=== PATIENT | male | born 1945 | race Hispanic/Latino ===

== ENCOUNTER 2017-07-11 16:01 | Inpatient (IN) | payer MEDICARE, BC ==
[2017-07-11 16:36] VITALS: BMI 27.3
[2017-07-11 17:35] LABS: ALB/GLOB RATIO 1.1 (1.1-1.8); ALT/SGPT 132 U/L (7-56); AST/SGOT 114 U/L (17-59); BLOOD UREA NITROGEN 25 mg/dL (7-21); GFR AFRICAN-AMERICAN > 60; GFR NON-AFRICAN AMERICAN 50; MAGNESIUM 1.6 mg/dL (1.7-2.2)
[2017-07-11 17:39] LABS: GRAN % 47.3 % (50.0-68.0); HEMOGLOBIN 17.3 g/dL (14.0-18.0); MEAN CELL VOLUME 103.6 fl (80.0-105.0); MEAN CORPUSCULAR HEMOGLOBIN 36.3 pg (25.0-35.0); MEAN PLATELET VOLUME 11.1 fl (7.0-11.0); PLATELET COUNT 95 10^3/uL (120.0-450.0); RBC 4.77 10^6/uL (3.5-6.1); WHITE BLOOD COUNT 5.2 10^3/ul (4.5-11.0)
[2017-07-11 17:40] LABS: BASO # 0.01 K/mm3 (0.0-2.0); BASO % 0.2 % (0.0-3.0); EOS % 0.8 % (1.5-5.0); GRAN # 2.44 (1.4-6.5); LYMPH # 1.6 (1.2-3.4); MONO # 1.1 (0.1-0.6); MONO % 20.7 % (1.0-6.0)
[2017-07-11 17:51] LABS: CK-MB 4.7 ng/mL (0.0-3.6)
[2017-07-11 17:52] LABS: TROPONIN I < 0.01 ng/mL
[2017-07-11] MEDS ORDERED: levoFLOXacin 750 mg in D5W 150 ML BAG IVPB STA (18:09)
[2017-07-11] MEDS ORDERED: Sodium Chloride 0.9% 1,000 ML IV ONE (18:12)
--- NOTE | 2017-07-11 18:12 | CT ---
EXAM: CT Head Without Intravenous Contrast CLINICAL HISTORY: 72 years old, male; Pain; Headache; Headache not specified; Additional info: R/O ich TECHNIQUE: Axial computed tomography images of the head/brain without intravenous contrast. All CT scans at this facility use one or more dose reduction techniques, viz.: automated exposure control; ma/kV adjustment per patient size (including targeted exams where dose is matched to indication; i.e. head); or iterative reconstruction technique. Coronal and sagittal reformatted images were created and reviewed. COMPARISON: CT - HEAD W/O CONTRAST 2016-08-05 17:03 FINDINGS: Brain: Prominence of the sulci and ventricular system consistent with atrophy. Hypodensity throughout the white matter consistent with chronic small vessel disease. No intracranial mass, mass effect, or midline shift. No hemorrhage. Ventricles: No hydrocephalus. Bones/joints: Unremarkable. No acute fracture. Soft tissues: Unremarkable. Sinuses: Unremarkable as visualized. No acute sinusitis. Mastoid air cells: Unremarkable as visualized. No mastoid effusion. IMPRESSION: No acute intracranial abnormality.
--- NOTE | 2017-07-11 18:46 | ED PDOC ---
Arrival/HPI - General Chief Complaint: Trauma Time Seen by Provider: 07/11/17 16:16 Historian: Patient - History of Present Illness Narrative History of Present Illness (Text): 07/11/17 18:41 72 year old male, who has a history of HIV and is on HAART with an unknown CD4 count, presents to the Emergency department status post dizziness and near syncope. Patient also complains of coughing for the past several days. Patient reports walking to the pharmacy today to get more cough medicine when he became dizzy and nearly lost consciousness. Patient states he is compliant with all medications. Patient denies any fever, chills, chest pain, shortness of breath, nausea, vomiting, diarrhea, urinary symptoms, back pain, neck pain, recent travel, recent sick contact or any other complaints. Time/Duration: Prior to Arrival Symptom Onset: Sudden Symptom Course: Improving Activities at Onset: Light Context: Walking Past Medical History - Provider Review Nursing Documentation Reviewed: Yes - Travel History Have you recently traveled outside [place] w/in the past 3 mons?: No - Infectious Disease Hx of Infectious Diseases: None - Cardiac Hx Cardiac Disorders: No Hx Angina: No Hx Cardiac Arrhythmia: No Hx Circulatory Problems: No Hx Congestive Heart Failure: No Hx Heart Murmur: No Hx Heart Transplant: No Hx Hypertension: No Hx Internal Defibrillator: No Hx Mitral Valve Prolapse: No Hx Pacemaker: No Hx Peripheral Edema: No Hx Peripheral Vascular Disease: No - Pulmonary Hx Respiratory Disorders: No Hx Asthma: No Hx Bronchitis: No Hx Chronic Obstructive Pulmonary Disease (COPD): No Hx Emphysema: No Hx Pneumonia: No Hx Respiratory Aspiration: No Hx Respiratory Tract Infection: No Hx Sleep Apnea: No Hx Tuberculosis: No Other/Comment: Pt has history of HIV - Neurological Hx Neurological Disorder: No Hx Alzheimer's Disease: No HX Cerebrovascular Accident: No Hx Dementia: No Hx Dizziness: No Hx Meningitis: No Hx Migraine: No Hx Parkinson's Disease: No Hx Seizures: No Hx Transient Ischemic Attacks (TIA): No - HEENT Hx HEENT Disorder: No Hx Blind: No Hx Cataracts: No Hx Deafness: No Hx Difficulty Chewing: No Hx Epistaxis: No Hx Glaucoma: No Hx Macular Degeneration: No - Renal Hx Renal Disorder: No Hx Dialysis: No Hx Kidney Stones: Yes Hx Neurogenic Bladder: No Hx Pyelonephritis: No Hx Renal Cancer: No Hx Renal Failure: No (Pt had one kidney removed, 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) - Endocrine/Metabolic Hx Endocrine Disorders: No Hx Adrenal Cancer: No Hx Diabetes Insipidus: No Hx Diabetes Mellitus Type 1: No Hx Diabetes Mellitus Type 2: No Hx Hyperthyroidism: No Hx Hypothyroidism: No Hx Systemic Lupus Erythematosus: No - Hematological/Oncological Other/Comment: HIV - Integumentary Hx Dermatological Disorder: Yes Hx Basal Cell Carcinoma: No Hx Eczema: No Hx Melanoma: No Hx Psoriasis: No Hx Squamous Cell Carcinoma: No Other/Comment: shingles in the eye, - Musculoskeletal/Rheumatological Hx Musculoskeletal Disorders: No Hx Falls: No (Firsoccurence was this past Wednesday,prior to admission) - Gastrointestinal Hx Gastrointestinal Disorders: No Hx Colostomy: No Hx Crohn's Disease: No Hx Diverticulitis: No Hx Gall Bladder Disease: No Hx Gastroesophageal Reflux: No Hx Gastrointestinal Ulcer: No Hx Ileostomy: No Hx Liver Failure: No Hx Pancreatitis: No HX Swallowing Problems: No - Genitourinary/Gynecological Hx Genitourinary Disorders: No Hx Hematuria: No Hx Incontinence: No Hx Prostate Problems: No Hx Sexually Transmitted Diseases: No Hx Urinary Tract Infection: No - Psychiatric Hx Psychophysiologic Disorder: No Hx Anxiety: No Hx Bipolar Disorder: No Hx Depression: No Hx Emotional Abuse: No Hx Hallucinations: No Hx Panic Disorder: No Hx Post Traumatic Stress Disorder: No Hx Psychosis: No Hx Physical Abuse: No Hx Schizophrenia: No Hx Sexual Abuse: No Hx Substance Use: No - Surgical History Hx Amputation: No Hx Appendectomy: No Hx Cardiac Catheterization: No Hx Cholecystectomy: No Hx Coronary Stent: No Hx Gastric Bypass Surgery: No Hx Hysterectomy: No Hx Joint Replacement: No Hx Kidney Transplant: No Hx Liver Transplant: No Hx Mastectomy: No Hx Musculoskeletal Surgery: No Hx Open Heart Surgery: No Hx Orthopedic Surgery: No Hx Splenectomy: No Hx Valve Replacement: No - Anesthesia Hx Anesthesia: Yes Hx Anesthesia Reactions: No Hx Malignant Hyperthermia: No Family/Social History - Physician Review Nursing Documentation Reviewed: Yes Family/Social History: Unknown Family HX Smoking Status: Never Smoked Hx Alcohol Use: No Hx Substance Use: No Allergies/Home Meds Allergies/Adverse Reactions: Allergies Penicillins Allergy (Intermediate, Verified 07/11/17 16:29) RASH Home Medications: Home Meds Medication Instructions Recorded Confirmed Darunavir/Cobicistat [Prezcobix 1 tab PO DAILY 08/05/16 08/06/16 800 mg-150 mg Tablet] Emtricitabine [Emtriva] 200 mg PO DAILY 08/05/16 08/06/16 Home Med 500 mg PO DAILY 08/06/16 08/06/16 Nevirapine [Viramune] 400 mg PO DAILY 08/06/16 08/06/16 Valsartan/Hydrochlorothiazide 1 tab PO DAILY 08/06/16 08/07/16 [Diovan Hct 320-25 mg Tablet] Review of Systems - Physician Review All systems were reviewed & negative as marked: Yes - Review of Systems Constitutional: absent: Fevers, Night Sweats Respiratory: absent: SOB Cardiovascular: absent: Chest Pain Gastrointestinal: absent: Diarrhea, Nausea, Vomiting Genitourinary Male: absent: Dysuria Musculoskeletal: absent: Back Pain, Neck Pain Neurological: Dizziness, Other (near syncope) Physical Exam Vital Signs Reviewed: Yes Vital Signs Temp Pulse Resp BP Pulse Ox 07/11/17 18:23 101.8 F H 07/11/17 16:50 101.8 F H 94 H 18 145/42 L 100 Temperature: Febrile Blood Pressure: Hypotensive Pulse: Regular Respiratory Rate: Normal Appearance: Positive for: Well-Appearing, Non-Toxic, Comfortable Pain Distress: None Mental Status: Positive for: Alert and Oriented X 3 - Systems Exam Head: Present: Atraumatic, Normocephalic Pupils: Present: PERRL Extroacular Muscles: Present: EOMI Conjunctiva: Present: Normal Mouth: Present: Dry. No: Moist Mucous Membranes Neck: Present: Normal Range of Motion Respiratory/Chest: Present: Clear to Auscultation, Good Air Exchange. No: Respiratory Distress, Accessory Muscle Use Cardiovascular: Present: Regular Rate and Rhythm, Normal S1, S2. No: Murmurs Abdomen: Present: Normal Bowel Sounds. No: Tenderness, Distention, Peritoneal Signs Back: Present: Normal Inspection Upper Extremity: Present: Normal Inspection. No: Cyanosis, Edema Lower Extremity: Present: Normal Inspection. No: Edema Neurological: Present: GCS=15, CN II-XII Intact, Speech Normal Skin: Present: Warm, Dry, Normal Color. No: Rashes Psychiatric: Present: Alert, Oriented x 3, Normal Insight, Normal Concentration Medical Decision Making ED Course and Treatment: 07/11/17 18:40 Impression: 72 year old male presents to the Emergency department status post dizziness and near syncope. Plan: -- Chest xray -- EKG -- Urinalysis -- Urine drug screen -- Urine and blood culture -- Tylenol, Levofloxacin, Sodium Chloride IV fluids -- Reassess and disposition Prior Visits: Notes and results from previous visits were reviewed. Patient was last seen in the emergency department on 08/05/16 for syncope and was hospitalized. Progress Notes: - Lab Interpretations Lab Results: 07/11/17 16:40 07/11/17 16:40 Lab Results 07/11/17 16:40: Sodium 136, Potassium 4.6, Chloride 100, Carbon Dioxide 27, Anion Gap 14, BUN 25 H, Creatinine 1.4, Est GFR ( Amer) > 60, Est GFR ( Non-Af Amer) 50, Random Glucose 104, Calcium 9.0, Magnesium 1.6 L, Total Bilirubin 0.6, AST 114 H, ALT 132 H, Alkaline Phosphatase 58, Lactate Dehydrogenase 614, Total Creatine Kinase 299 H, CK-MB (CK-2) 4.7 H, CK-MB (CK-2 ) % Cancelled, Troponin I < 0.01, Total Protein 7.6, Albumin 4.0, Globulin 3.7, Albumin/Globulin Ratio 1.1 07/11/17 16:40: Influenza Typ A,B (EIA) Negative for flu a/b 07/11/17 16:40: WBC 5.2, RBC 4.77, Hgb 17.3, Hct 49.4, MCV 103.6, MCH 36.3 H, MCHC 35.0, RDW 13.0, Plt Count 95 L, MPV 11.1 H, Gran % 47.3 L, Lymph % (Auto) 31.0, [place] % (Auto) 20.7 H, Eos % (Auto) 0.8 L, Baso % (Auto) 0.2, Gran # 2.44, Lymph # 1.6, [place] # 1.1 H, Eos # 0.0, Baso # 0.01, Neutrophils % (Manual) Pending, Lymphocytes % (Manual) Pending, Monocytes % (Manual) Pending - RAD Interpretation Radiology Orders: 07/11/17 16:28 HEAD W/O CONTRAST [CT] Stat CHEST PORTABLE [RAD] Stat - EKG Interpretation EKG Interpretation (Text): 01/14/18 16:56 EKG: Ordered, reviewed, and independently interpreted the EKG. Rate : 92 BPM Rhythm : NSR Interpretation : Normal axis and rhythm. Interpreted by ED Physician: Yes Type: 12 lead EKG - Medication Orders Current Medication Orders: Sodium Chloride (Sodium Chloride 0.9%) 1,000 mls @ 250 mls/hr IV .Q4H ONE Stop: 07/11/17 22:11 Last Admin: 07/11/17 18:24 Dose: 250 mls/hr eMAR Start Stop Document 07/11/17 18:24 SE (Rec: 07/11/17 18:24 SE [id number]) Intravenous Solution Start Date 07/11/17 Start Time 18:24 Discontinued Medications Acetaminophen (Tylenol 325mg Tab) 975 mg PO STAT STA Stop: 07/11/17 18:10 Last Admin: 07/11/17 18:23 Dose: 975 mg MAR Pain/Vitals Document 07/11/17 18:23 SE (Rec: 07/11/17 18:24 [id number]) Pain Reassessment Is This A Pain ReAssessment? No Sleep Is patient sleeping during reassessment? No Presence of Pain Presence of Pain No Vitals Temperature (97.6 F-99.6 F) 101.8 F Temperature Source Rectal Levofloxacin/Dextrose (Levaquin 750mg) 750 mg IVPB STAT STA Stop: 07/11/17 18:10 Last Admin: 07/11/17 18:24 Dose: 750 mg eMAR Start Stop Document 07/11/17 18:24 SE (Rec: 07/11/17 18:24 SE [id number]) Intravenous Solution Start Date 07/11/17 Start Time 18:24 - Scribe Statement The provider has reviewed the documentation as recorded by the Scribjuan Brady All medical record entries made by the Dianeibjuan were at my direction and personally dictated by me. I have reviewed the chart and agree that the record accurately reflects my personal performance of the history, physical exam, medical decision making, and the department course for this patient. I have also personally directed, reviewed, and agree with the discharge instructions and disposition. Disposition/Present on Arrival - Present on Arrival Any Indicators Present on Arrival: No History of DVT/PE: No History of Uncontrolled Diabetes: No Urinary Catheter: No History of Decub. Ulcer: No History Surgical Site Infection Following: None - Disposition Have Diagnosis and Disposition been Completed?: Yes Diagnosis: Near syncope, HIV (human immunodeficiency virus infection), Pneumonia Disposition: HOSPITALIZED Disposition Time: 18:30 Condition: FAIR
[2017-07-11 19:55] LABS: BAND 10 % (0-2); BASOPHIL 1 % (0.0-1.0); LYMPHOCYTE 25 % (22.0-35.0); MONOCYTE 17 % (1.0-6.0); NEUTROPHIL 47 % (50.0-70.0); PLATELET CLUMPS PRESENT; PLATELET ESTIMATE NORMAL (NORMAL)
[2017-07-11 23:09] LABS: URINE BILIRUBIN NEGATIVE (NEGATIVE); URINE BLOOD TRACE-INTACT (NEGATIVE); URINE GLUCOSE (UA) NEGATIVE (NEGATIVE); URINE LEUKOCYTE ESTERASE NEGATIVE Leu/uL (NEGATIVE); URINE NITRATE NEGATIVE (NEGATIVE); URINE PROTEIN 30 mg/dL (<30 mg/dL); URINE UROBILINOGEN 0.2 E.U./dL (<1 E.U./dL)
[2017-07-11 23:24] LABS: BARBITURATES, UR NEGATIVE (NEGATIVE); BENZODIAZEPINES, UR NEGATIVE (NEGATIVE); OPIATES, UR NEGATIVE (NEGATIVE); PHENCYCLIDINE, UR NEGATIVE (NEGATIVE)
[2017-07-11 23:42] LABS: URINE APPEARANCE CLEAR (CLEAR); URINE COLOR YELLOW (YELLOW)
[2017-07-11 23:45] LABS: URINE EPITHELIAL CELLS 0 - 2 /hpf (0-5); URINE RBC 0 - 2 /hpf (0-2); URINE WBC 0 - 2 /hpf (0-6)
[2017-07-12 06:25] VITALS: O2SAT 96
[2017-07-12] MEDS: Sodium Chloride 0.45% 1,000 ML IV SCH (06:38)
[2017-07-12] MEDS ORDERED: Albuterol-Ipratrop 3 mg / 0.5 (3 ml) UD IH PRN (07:27)
--- NOTE | 2017-07-12 07:45 | CP.PCM.HP ---
History of Present Illness - History of Present Illness History of Present Illness: PGY2 for Dr. Sultana Neurology Consult: Near syncope MR. Jones, 72 M, with PMHx of HIV, (on HAART, unknown CD4), and HTN presents to the Emergency department status post dizziness and near syncope. Patient also complains of coughing for the past several days. Patient reports walking to the pharmacy today to get more cough medicine when he became dizzy and nearly lost consciousness. Patient states he is compliant with all medications. ROS - Denies any fever, chills, chest pain, shortness of breath, nausea, vomiting, diarrhea, urinary symptoms, back pain, neck pain, recent travel, recent sick contact or any other complaints. PMH HIV, HTN Macrocytic RBC PSH Cardiac catherterization FH SH Denies tobaco, etoh, drug All Penicillin-rash Med PMD MR. Jones, 72 M, with PMHx of HIV, (on HAART, unknown CD4), and HTN presents to the Emergency department status post dizziness and near syncope. Patient also complains of coughing for the past several days. 1. Syncope - CT of head shows no mass, mass effect, midline shift, hemorrhage, hydrocephalus. (+) generalized atrophy. Hypodensity throught white matter consist with chronic small vessel disease - EKG showed NSR @ 92. Normal axis, rhythm - will check orthostatic vital signs - f/u on a1c and lipid panel - Consider MRI 2. Respiratory infection with 10% bandemia - On duoneb, pulmicort - solumedrol 30 q12 - Levaquin IV 3. HIV - check CD4 count and viral load - On Darunavir/Cobicistate/Emtricitabine 4. transaminitis (AST 114, ALT 132) 5. HTN - stable Past Patient History - Infectious Disease Hx of Infectious Diseases: None - Past Social History Smoking Status: Never Smoked - CARDIAC Hx Cardiac Disorders: No Hx Angina: No Hx Cardia Arrhythmia: No Hx Circulatory Problems: No Hx Congestive Heart Failure: No Hx Heart Murmur: No Hx Heart Transplant: No Hx Hypertension: No Hx Internal Defibrillator: No Hx Mitral Valve Prolapse: No Hx Pacemaker: No Hx Peripheral Edema: No Hx Peripheral Vascular Disease: No - PULMONARY Hx Respiratory Disorders: No Hx Asthma: No Hx Bronchitis: No Hx Chronic Obstructive Pulmonary Disease (COPD): No Hx Emphysema: No Hx Pneumonia: No Hx Respiratory Aspiration: No Hx Respiratory Tract Infection: No Hx Sleep Apnea: No Hx Tuberculosis: No Other/Comment: Pt has history of HIV - NEUROLOGICAL Hx Neurological Disorder: No Hx Alzheimer's Disease: No HX Cerebrovascular Accident: No Hx Dementia: No Hx Dizziness: No Hx Meningitis: No Hx Migraine: No Hx Parkinson's Disease: No Hx Seizures: No Hx Transient Ischemic Attacks (TIA): No - HEENT Hx HEENT Problems: No Hx Blind: No Hx Cataracts: No Hx Deafness: No Hx Difficulty Chewing: No Hx Epistaxis: No Hx Glaucoma: No Hx Macular Degeneration: No - RENAL Hx Chronic Kidney Disease: No Hx Dialysis: No Hx Kidney Stones: Yes Hx Neurogenic Bladder: No Hx Pyelonephritis: No Hx Renal (Kidney) Cancer: No Hx Renal Failure: No - ENDOCRINE/METABOLIC Hx Endocrine Disorders: No Hx Adrenal Cancer: No Hx Diabetes Insipidus: No Hx Diabetes Mellitus Type 1: No Hx Diabetes Mellitus Type 2: No Hx Hyperthyroidism: No Hx Hypothyroidism: No Hx Systemic Lupus Erythematosus: No - HEMATOLOGICAL/ONCOLOGICAL Hx Human Immunodeficiency Virus (HIV): Yes Other/Comment: HIV - INTEGUMENTARY Hx Dermatological Problems: Yes Hx Basil Cell: No Hx Eczema: No Hx Melanoma: No Hx Psoriasis: No Hx Squamous Cell: No Other/Comment: shingles in the eye, - MUSCULOSKELETAL/RHEUMATOLOGICAL Hx Falls: No - GASTROINTESTINAL Hx Gastrointestinal Disorders: No Hx Colostomy: No Hx Crohn's Disease: No Hx Diverticulitis: No Hx Gall Bladder Disease: No Hx Gastroesophageal Reflux: No Hx Ileostomy: No Hx Liver Failure: No Hx Pancreatitis: No HX Swallowing Problems: No - GENITOURINARY/GYNECOLOGICAL Hx Genitourinary Disorders: No Hx Hematuria: No Hx Incontinence: No Hx Prostate Problems: No Hx Sexually Transmitted Disorders: No Hx Urinary Tract Infection: No - PSYCHIATRIC Hx Substance Use: No - SURGICAL HISTORY Hx Amputation: No Hx Appendectomy: No Hx Cardiac Catheterization: No Hx Cholecystectomy: No Hx Coronary Stent: No Hx Gastric Bypass Surgery: No Hx Hysterectomy: No Hx Joint Replacement: No Hx Kidney Transplant: No Hx Liver Transplant: No Hx Mastectomy: No Hx Musculoskeletal Surgery: No Hx Open Heart Surgery: No Hx Orthopedic Surgery: No Hx Splenectomy: No Hx Valve Replacement: No - ANESTHESIA Hx Anesthesia: Yes Hx Anesthesia Reactions: No Hx Malignant Hyperthermia: No Meds Allergies/Adverse Reactions: Allergies Allergy/AdvReac Type Severity Reaction Status Date / Time Penicillins Allergy Intermediate RASH Verified 07/11/17 16:29 Results - Vital Signs Recent Vital Signs: Last Vital Signs Temp 98.7 F 07/12/17 06:00 Pulse 84 07/12/17 06:00 Resp 22 07/12/17 06:00 BP 134/72 07/12/17 06:00 Pulse Ox 96 07/12/17 06:00 - Labs Result Diagrams: 07/11/17 16:40 07/11/17 16:40 Labs: Laboratory Results - last 24 hr 07/11/17 07/11/17 22:30 22:30 Urine Color Yellow Urine Appearance Clear Urine pH 6.0 Ur Specific [place] 1.025 Urine Protein 30 H Urine Glucose (UA) Negative Urine Ketones Negative Urine Blood Trace-intact H Urine Nitrate Negative Urine Bilirubin Negative Urine Urobilinogen 0.2 Ur Leukocyte Esterase Negative Urine RBC 0 - 2 Urine WBC 0 - 2 Ur Epithelial Cells 0 - 2 Urine Opiates Screen Negative Urine Methadone Screen Negative Ur Barbiturates Screen Negative Ur Phencyclidine Scrn Negative Ur Amphetamines Screen Negative U Benzodiazepines Scrn Negative U Oth Cocaine Metabols Negative U Cannabinoids Screen Negative
[2017-07-12] MEDS ORDERED: Magnesium Sulfate 2 GM in Sodium Chloride 0.9% 100 ML IVPB ONE (07:59)
[2017-07-12 08:37] LABS: EOS % 0.5 % (1.5-5.0); GRAN # 1.64 (1.4-6.5); GRAN % 37.2 % (50.0-68.0); HEMOGLOBIN 16.7 g/dL (14.0-18.0); LYMPH # 1.9 (1.2-3.4); LYMPH % 43.5 % (22.0-35.0); MEAN CELL VOLUME 102.8 fl (80.0-105.0); MEAN CORPUSCULAR HEMOGLOBIN 35.9 pg (25.0-35.0); MEAN CORPUSCULAR HGB CONC 34.9 g/dl (31.0-37.0); MEAN PLATELET VOLUME 10.3 fl (7.0-11.0); MONO # 0.8 (0.1-0.6); MONO % 18.8 % (1.0-6.0); RBC 4.65 10^6/uL (3.5-6.1); RED CELL DISTRIBUTION WIDTH 12.9 % (11.5-14.5); WHITE BLOOD COUNT 4.4 10^3/ul (4.5-11.0)
[2017-07-12 08:43] LABS: ALB/GLOB RATIO 1.1 (1.1-1.8); ALBUMIN 3.8 g/dL (3.0-4.8); ALT/SGPT 143 U/L (7-56); AST/SGOT 121 U/L (17-59); BLOOD UREA NITROGEN 21 mg/dL (7-21); CALCIUM 8.9 mg/dL (8.4-10.5); GFR AFRICAN-AMERICAN > 60; GFR NON-AFRICAN AMERICAN 55; MAGNESIUM 1.5 mg/dL (1.7-2.2)
--- NOTE | 2017-07-12 08:51 | RAD ---
HISTORY: r/o infiltrate COMPARISON: 08/05/2016. FINDINGS: LUNGS: The lungs are well inflated and clear. PLEURA: No significant pleural effusion identified, no pneumothorax apparent. CARDIOVASCULAR: Normal. OSSEOUS STRUCTURES: No significant abnormalities. VISUALIZED UPPER ABDOMEN: Normal. OTHER FINDINGS: None. IMPRESSION: No active pulmonary disease.
--- NOTE | 2017-07-12 09:59 | CON ---
DATE: 07/12/2017 PULMONARY CONSULTATION REFERRING PHYSICIAN: Edison Pack DO REASON FOR CONSULTATION: Cough. HISTORY OF PRESENT ILLNESS: History is obtained via extensive discussion with the night nurse. I have also reviewed the chart at length. I have discussed the case with the patient at length. The patient is a 72-year-old male, with past medical history significant for HIV positivity, on HAART therapy, who presents to [facility] with main complaint of "almost passing out". The patient states that he has had a cough with sputum production for the past week. He does admit to trying to forcefully cough up any and all secretions. When he gives these forceful coughs, he experiences dizziness. There is no history of shortness of breath at rest or dyspnea on exertion. There is no history of chest pain, coughing up of blood or chest pain - made worse with deep respirations. The patient did present to the Emergency Room with fevers. No history of chills or infectious exposure. No history of night sweats, weight loss or appetite change prior to the above events. No history of leg or calf pains. No history of syncope or diaphoresis. No history of recent travel or trauma. REVIEW OF SYSTEMS: No history of nausea, vomiting or diarrhea. No acute urinary symptoms. No new musculoskeletal complaints. Rest of the review of systems is negative. ALLERGIES: PENICILLIN. SOCIAL HISTORY: Negative for tobacco, negative for alcohol. FAMILY HISTORY: No inheritable diseases. HOME MEDICATIONS: Include Diovan, nevirapine, Imodium, and Emtriva. PHYSICAL EXAMINATION: GENERAL: The patient appears comfortable this morning. He is not short of breath at rest. VITAL SIGNS: Temperature 98.7, pulse 84, respirations 18/20, blood pressure 134/72, and oxygen saturation on room air is 96%. HEENT: Normocephalic, atraumatic. NECK: No JVD. CARDIOVASCULAR: Positive S1 and S2. No S3 gallop. LUNGS: Decreased breath sounds at the bases. Mild bilateral rhonchi and wheezing are appreciated. EXTREMITIES: No clubbing, cyanosis or edema. Calves are nontender to palpation. GASTROINTESTINAL: Abdomen is soft, nontender, and nondistended. Bowel sounds are positive. SKIN: No acute rash. NEUROLOGIC: Limited at the present time. PERTINENT LABORATORY DATA: Chest x-ray was done in the Emergency Room and reviewed. There is no significant change from the film of 08/05/2016. CBC: White count 5.2, hemoglobin 17.3, hematocrit 49.4, and platelets 95,000. Complete metabolic profile: BUN 25, magnesium 1.6, AST 114, ALT 132, and creatinine kinase 299. Rest of the metabolic profile is within normal limits. IMPRESSION: 1. Near syncope. 2. Acute bronchitis. 3. Acute bronchospasm. 4. Human immunodeficiency virus positivity. PLAN: The patient presents to [facility] with main complaint of "almost passing out" at home. He does relate the history of cough with sputum production for the past week. He offers no other pulmonary symptoms. The patient also offers a history of forcefully trying to cough up any/all secretions. He clearly gives the history of-- when he tries to forcefully cough up the secretions, he becomes very dizzy. He was highly advised against this practice. I did review the chest x-ray as above. The chest x-ray is not significantly changed from the previous film. On physical exam, the patient is in mild bronchospasm. I will start the patient on nebulizer treatments and low-dose intravenous steroids. Infectious Disease evaluation with Dr. Gonzalez has been ordered. Neurologic evaluation with Dr. Sultana has also been ordered. The patient does feel better and is clinically improved this morning - compared to the past few days. Additional pulmonary intervention will be based on the clinical status of the patient. I will discuss the above with Dr. Pack. Thank you very much for this pulmonary consultation. Raul Powers MD [facility]
[2017-07-12] MEDS: Budesonide 0.5 mg/2 ml Inhal Susp UD IH SCH ×2 (10:00→20:05)
[2017-07-12] MEDS: Albuterol-Ipratrop 3 mg / 0.5 (3 ml) UD IH SCH ×3 (10:00→20:05)
[2017-07-12] MEDS: Magnesium Oxide 400 mg Tab UD PO SCH (10:43)
[2017-07-12] MEDS: COBICISTAT PO SCH (10:44)
[2017-07-12] MEDS: MethylPREDNISolone 40 mg Vial IVP SCH ×2 (10:44→21:39)
[2017-07-12] MEDS: DARUNAVIR PO SCH (10:44)
[2017-07-12] MEDS: NEVIRAPINE 400 MG PO SCH (10:45)
--- NOTE | 2017-07-12 12:46 | CP.PCM.CON ---
<Riya Woodward - Last Filed: 07/12/17 13:03> History of Present Illness - History of Present Illness History of Present Illness: PGY2 for Dr. Sultana Neurology Consult: Near syncope MR. Jones, 72 M, with PMHx of HIV/HepB, (on HAART, unknown CD4), and HTN presents to the Emergency department status post dizziness and near syncope. Patient also complains of coughing for the past several days with sputum. Patient reports walking to the pharmacy today to get more cough medicine. Since sputum was hard to produce, pt forced the cough with bearing down. He states that he lost balance, missed the chair, and landed on his buttock. Pt denied room spinning or lost consciousness. Patient states he is compliant with all medications. ROS - Denies any fever, chills, nigh sweat, wt loss, chest pain, shortness of breath, nausea, vomiting, diarrhea, urinary symptoms, back pain, neck pain, recent travel, recent sick contact or any other complaints. PMH HIV, HTN Macrocytic RBC Hepatitis B (Hep B DNA > [id number] in Jul 2016) PSH Cardiac catherterization SH Denies tobaco, etoh, drug All Penicillin-rash Med Nevirapine, Emtriva, Darunavir/Cobicistat Valsartan/HCTZ PMD ? Outpt Infectious Disease: Dr. Jamil Montes Review of Systems - Review of Systems All systems: reviewed and no additional remarkable complaints except (as per hpi ) Past Patient History - Infectious Disease Hx of Infectious Diseases: None - Past Social History Smoking Status: Never Smoked - CARDIAC Hx Cardiac Disorders: No Hx Angina: No Hx Cardia Arrhythmia: No Hx Circulatory Problems: No Hx Congestive Heart Failure: No Hx Heart Murmur: No Hx Heart Transplant: No Hx Hypertension: No Hx Internal Defibrillator: No Hx Mitral Valve Prolapse: No Hx Pacemaker: No Hx Peripheral Edema: No Hx Peripheral Vascular Disease: No - PULMONARY Hx Respiratory Disorders: No Hx Asthma: No Hx Bronchitis: No Hx Chronic Obstructive Pulmonary Disease (COPD): No Hx Emphysema: No Hx Pneumonia: No Hx Respiratory Aspiration: No Hx Respiratory Tract Infection: No Hx Sleep Apnea: No Hx Tuberculosis: No Other/Comment: Pt has history of HIV - NEUROLOGICAL Hx Neurological Disorder: No Hx Alzheimer's Disease: No HX Cerebrovascular Accident: No Hx Dementia: No Hx Dizziness: No Hx Meningitis: No Hx Migraine: No Hx Parkinson's Disease: No Hx Seizures: No Hx Transient Ischemic Attacks (TIA): No - HEENT Hx HEENT Problems: No Hx Blind: No Hx Cataracts: No Hx Deafness: No Hx Difficulty Chewing: No Hx Epistaxis: No Hx Glaucoma: No Hx Macular Degeneration: No - RENAL Hx Chronic Kidney Disease: No Hx Dialysis: No Hx Kidney Stones: Yes Hx Neurogenic Bladder: No Hx Pyelonephritis: No Hx Renal (Kidney) Cancer: No Hx Renal Failure: No - ENDOCRINE/METABOLIC Hx Endocrine Disorders: No Hx Adrenal Cancer: No Hx Diabetes Insipidus: No Hx Diabetes Mellitus Type 1: No Hx Diabetes Mellitus Type 2: No Hx Hyperthyroidism: No Hx Hypothyroidism: No Hx Systemic Lupus Erythematosus: No - HEMATOLOGICAL/ONCOLOGICAL Hx Human Immunodeficiency Virus (HIV): Yes Other/Comment: HIV - INTEGUMENTARY Hx Dermatological Problems: Yes Hx Basil Cell: No Hx Eczema: No Hx Melanoma: No Hx Psoriasis: No Hx Squamous Cell: No Other/Comment: shingles in the eye, - MUSCULOSKELETAL/RHEUMATOLOGICAL Hx Falls: No - GASTROINTESTINAL Hx Gastrointestinal Disorders: No Hx Colostomy: No Hx Crohn's Disease: No Hx Diverticulitis: No Hx Gall Bladder Disease: No Hx Gastroesophageal Reflux: No Hx Ileostomy: No Hx Liver Failure: No Hx Pancreatitis: No HX Swallowing Problems: No - GENITOURINARY/GYNECOLOGICAL Hx Genitourinary Disorders: No Hx Hematuria: No Hx Incontinence: No Hx Prostate Problems: No Hx Sexually Transmitted Disorders: No Hx Urinary Tract Infection: No - PSYCHIATRIC Hx Substance Use: No - SURGICAL HISTORY Hx Amputation: No Hx Appendectomy: No Hx Cardiac Catheterization: No Hx Cholecystectomy: No Hx Coronary Stent: No Hx Gastric Bypass Surgery: No Hx Hysterectomy: No Hx Joint Replacement: No Hx Kidney Transplant: No Hx Liver Transplant: No Hx Mastectomy: No Hx Musculoskeletal Surgery: No Hx Open Heart Surgery: No Hx Orthopedic Surgery: No Hx Splenectomy: No Hx Valve Replacement: No - ANESTHESIA Hx Anesthesia: Yes Hx Anesthesia Reactions: No Hx Malignant Hyperthermia: No Meds Allergies/Adverse Reactions: Allergies Allergy/AdvReac Type Severity Reaction Status Date / Time Penicillins Allergy Intermediate RASH Verified 07/11/17 16:29 - Medications Medications: Current Medications Albuterol/Ipratropium (Duoneb 3 Mg/0.5 Mg (3 Ml) Ud) 3 ml IH [id number] Albuterol/Ipratropium (Duoneb 3 Mg/0.5 Mg (3 Ml) Ud) 3 ml IH Q2H PRN PRN Reason: Shortness of Breath Budesonide (Pulmicort Respules) 0.5 mg IH [id number] [facility] Levofloxacin/Dextrose (Levaquin 750mg) 750 mg in 150 mls @ 100 mls/hr IVPB Q48H [facility] PRN Reason: Protocol Sodium Chloride (Sodium Chloride 0.45%) 1,000 mls @ 40 mls/hr IV .Q24H [facility] Last Admin: 07/12/17 06:38 Dose: 40 mls/hr Magnesium Oxide (Mag-Ox) 400 mg PO DAILY [facility] Last Admin: 07/12/17 10:43 Dose: 400 mg Methylprednisolone (Solu-Medrol) 30 mg IVP Q12 [facility] Last Admin: 07/12/17 10:44 Dose: 30 mg Darunavir/Cobicistat [Prezcobix 800 Mg- 150 Mg Tablet] (Home Med) 1 tab PO DAILY [facility] Last Admin: 07/12/17 10:44 Dose: Not Given Emtricitabine [ Emtriva] 200 Mg ( Home Med) 200 mg PO DAILY [facility] Last Admin: 07/12/17 10:45 Dose: Not Given Nevirapine [Viramune (] 400 Mg (Home Med)) 400 mg PO DAILY [facility] Last Admin: 07/12/17 10:45 Dose: Not Given Physical Exam - Constitutional Appears: No Acute Distress - Head Exam Head Exam: ATRAUMATIC, NORMAL INSPECTION, NORMOCEPHALIC - Eye Exam Eye Exam: EOMI, Normal appearance, PERRL. absent: Scleral icterus Pupil Exam: NORMAL ACCOMODATION - ENT Exam ENT Exam: Mucous Membranes Moist - Neck Exam Additional comments: supple - Respiratory Exam Respiratory Exam: Clear to Auscultation Bilateral, Wheezes. absent: Rales, Rhonchi - Cardiovascular Exam Cardiovascular Exam: REGULAR RHYTHM, +S1, +S2 - GI/Abdominal Exam GI & Abdominal Exam: Normal Bowel Sounds, Soft. absent: Guarding, Rigid, Tenderness - Extremities Exam Extremities exam: Positive for: pedal pulses present. Negative for: calf tenderness, pedal edema - Neurological Exam Neurological exam: Alert, CN II-XII Intact, Oriented x3 Additional comments: Recall 2/3 words after 5 minutes Speech fluent Motor 5/5 all extremity Sensory intact Rapid alternating movement intact - Psychiatric Exam Psychiatric exam: Normal Affect, Normal Mood - Skin Skin Exam: Dry, Warm Results - Vital Signs Recent Vital Signs: Last Vital Signs Temp 98.6 F 07/12/17 12:00 Pulse 81 07/12/17 12:00 Resp 18 07/12/17 12:00 BP 124/81 07/12/17 12:00 Pulse Ox 96 07/12/17 06:00 - Labs Result Diagrams: 07/12/17 08:25 07/12/17 08:25 Labs: Laboratory Results - last 24 hr 07/11/17 07/11/17 07/12/17 22:30 22:30 08:25 WBC 4.4 L RBC 4.65 Hgb 16.7 Hct 47.8 MCV 102.8 MCH 35.9 H MCHC 34.9 RDW 12.9 Plt Count 95 L MPV 10.3 Gran % 37.2 L Lymph % (Auto) 43.5 H Chaves % (Auto) 18.8 H Eos % (Auto) 0.5 L Baso % (Auto) 0.0 Gran # 1.64 Lymph # 1.9 Chaves # 0.8 H Eos # 0.0 Baso # 0.00 Sodium Potassium Chloride Carbon Dioxide Anion Gap BUN Creatinine Est GFR ( Amer) Est GFR (Non-Af Amer) Random Glucose Calcium Magnesium Total Bilirubin AST ALT Alkaline Phosphatase Total Protein Albumin Globulin Albumin/Globulin Ratio Urine Color Yellow Urine Appearance Clear Urine pH 6.0 Ur Specific Grawn 1.025 Urine Protein 30 H Urine Glucose (UA) Negative Urine Ketones Negative Urine Blood Trace-intact H Urine Nitrate Negative Urine Bilirubin Negative Urine Urobilinogen 0.2 Ur Leukocyte Esterase Negative Urine RBC 0 - 2 Urine WBC 0 - 2 Ur Epithelial Cells 0 - 2 Urine Opiates Screen Negative Urine Methadone Screen Negative Ur Barbiturates Screen Negative Ur Phencyclidine Scrn Negative Ur Amphetamines Screen Negative U Benzodiazepines Scrn Negative U Oth Cocaine Metabols Negative U Cannabinoids Screen Negative 07/12/17 08:25 WBC RBC Hgb Hct MCV MCH MCHC RDW Plt Count MPV Gran % Lymph % (Auto) Chaves % (Auto) Eos % (Auto) Baso % (Auto) Gran # Lymph # Chaves # Eos # Baso # Sodium 135 Potassium 4.4 Chloride 100 Carbon Dioxide 27 Anion Gap 13 BUN 21 Creatinine 1.3 Est GFR ( Amer) > 60 Est GFR (Non-Af Amer) 55 Random Glucose 98 Calcium 8.9 Magnesium 1.5 L Total Bilirubin 0.6 AST 121 H ALT 143 H Alkaline Phosphatase 56 Total Protein 7.4 Albumin 3.8 Globulin 3.6 Albumin/Globulin Ratio 1.1 Urine Color Urine Appearance Urine pH Ur Specific Grawn Urine Protein Urine Glucose (UA) Urine Ketones Urine Blood Urine Nitrate Urine Bilirubin Urine Urobilinogen Ur Leukocyte Esterase Urine RBC Urine WBC Ur Epithelial Cells Urine Opiates Screen Urine Methadone Screen Ur Barbiturates Screen Ur Phencyclidine Scrn Ur Amphetamines Screen U Benzodiazepines Scrn U Oth Cocaine Metabols U Cannabinoids Screen Assessment & Plan - Assessment and Plan (Free Text) Plan: Mr. Jones, 72 M, with PMHx of HIV, (on HAART, unknown CD4), and HTN presents to the Emergency department status post dizziness and near syncope after forcing coughs with bearing down. 1. Near Syncope likely vasovagal. - No focal neuro deficit - CT of head shows no mass, mass effect, midline shift, hemorrhage, hydrocephalus. (+) generalized atrophy. Hypodensity throught white matter consist with chronic small vessel disease - EKG showed NSR @ 92. Normal axis, rhythm - will check orthostatic vital signs - Pending carotid artery doppler - Advise against forcing coughs - will follow up on HIV labs - continue medical management per primary - Goal blood glucose 140-180, especially pt is on steroid 2. Respiratory infection with 10% bandemia Acute bronchitis Acute bronchospasm - On duoneb, pulmicort - solumedrol 30 q12 - Levaquin IV 3. HIV - Pending CD4 count and viral load - Nevirapine, Emtriva, Darunavir/Cobicistat 4. transaminitis (AST 114, ALT 132) - managed per primary 5. HTN - On Valsartan/HCTZ s/r/d/w Dr. Sultana <Eldon Sultana - Last Filed: 07/12/17 13:12> Meds - Medications Medications: Current Medications Albuterol/Ipratropium (Duoneb 3 Mg/0.5 Mg (3 Ml) Ud) 3 ml IH [id number] KAMRYN Albuterol/Ipratropium (Duoneb 3 Mg/0.5 Mg (3 Ml) Ud) 3 ml IH Q2H PRN PRN Reason: Shortness of Breath Budesonide (Pulmicort Respules) 0.5 mg IH [id number] [facility] Levofloxacin/Dextrose (Levaquin 750mg) 750 mg in 150 mls @ 100 mls/hr IVPB Q48H KAMRYN PRN Reason: Protocol Sodium Chloride (Sodium Chloride 0.45%) 1,000 mls @ 40 mls/hr IV .Q24H [facility] Last Admin: 07/12/17 06:38 Dose: 40 mls/hr Magnesium Oxide (Mag-Ox) 400 mg PO DAILY [facility] Last Admin: 07/12/17 10:43 Dose: 400 mg Methylprednisolone (Solu-Medrol) 30 mg IVP Q12 [facility] Last Admin: 07/12/17 10:44 Dose: 30 mg Darunavir/Cobicistat [Prezcobix 800 Mg- 150 Mg Tablet] (Home Med) 1 tab PO DAILY [facility] Last Admin: 07/12/17 10:44 Dose: Not Given Emtricitabine [ Emtriva] 200 Mg ( Home Med) 200 mg PO DAILY [facility] Last Admin: 07/12/17 10:45 Dose: Not Given Nevirapine [Viramune (] 400 Mg (Home Med)) 400 mg PO DAILY [facility] Last Admin: 07/12/17 10:45 Dose: Not Given Results - Vital Signs Recent Vital Signs: Last Vital Signs Temp 98.6 F 07/12/17 12:00 Pulse 81 07/12/17 12:00 Resp 18 07/12/17 12:00 BP 124/81 07/12/17 12:00 Pulse Ox 96 07/12/17 06:00 - Labs Result Diagrams: 07/12/17 08:25 07/12/17 08:25 Labs: Laboratory Results - last 24 hr 07/11/17 07/11/17 07/12/17 22:30 22:30 08:25 WBC 4.4 L RBC 4.65 Hgb 16.7 Hct 47.8 MCV 102.8 MCH 35.9 H MCHC 34.9 RDW 12.9 Plt Count 95 L MPV 10.3 Gran % 37.2 L Lymph % (Auto) 43.5 H Chaves % (Auto) 18.8 H Eos % (Auto) 0.5 L Baso % (Auto) 0.0 Gran # 1.64 Lymph # 1.9 Chaves # 0.8 H Eos # 0.0 Baso # 0.00 Sodium Potassium Chloride Carbon Dioxide Anion Gap BUN Creatinine Est GFR ( Amer) Est GFR (Non-Af Amer) Random Glucose Calcium Magnesium Total Bilirubin AST ALT Alkaline Phosphatase Total Protein Albumin Globulin Albumin/Globulin Ratio Urine Color Yellow Urine Appearance Clear Urine pH 6.0 Ur Specific Grawn 1.025 Urine Protein 30 H Urine Glucose (UA) Negative Urine Ketones Negative Urine Blood Trace-intact H Urine Nitrate Negative Urine Bilirubin Negative Urine Urobilinogen 0.2 Ur Leukocyte Esterase Negative Urine RBC 0 - 2 Urine WBC 0 - 2 Ur Epithelial Cells 0 - 2 Urine Opiates Screen Negative Urine Methadone Screen Negative Ur Barbiturates Screen Negative Ur Phencyclidine Scrn Negative Ur Amphetamines Screen Negative U Benzodiazepines Scrn Negative U Oth Cocaine Metabols Negative U Cannabinoids Screen Negative 07/12/17 08:25 WBC RBC Hgb Hct MCV MCH MCHC RDW Plt Count MPV Gran % Lymph % (Auto) Chaves % (Auto) Eos % (Auto) Baso % (Auto) Gran # Lymph # Chaves # Eos # Baso # Sodium 135 Potassium 4.4 Chloride 100 Carbon Dioxide 27 Anion Gap 13 BUN 21 Creatinine 1.3 Est GFR ( Amer) > 60 Est GFR (Non-Af Amer) 55 Random Glucose 98 Calcium 8.9 Magnesium 1.5 L Total Bilirubin 0.6 AST 121 H ALT 143 H Alkaline Phosphatase 56 Total Protein 7.4 Albumin 3.8 Globulin 3.6 Albumin/Globulin Ratio 1.1 Urine Color Urine Appearance Urine pH Ur Specific Grawn Urine Protein Urine Glucose (UA) Urine Ketones Urine Blood Urine Nitrate Urine Bilirubin Urine Urobilinogen Ur Leukocyte Esterase Urine RBC Urine WBC Ur Epithelial Cells Urine Opiates Screen Urine Methadone Screen Ur Barbiturates Screen Ur Phencyclidine Scrn Ur Amphetamines Screen U Benzodiazepines Scrn U Oth Cocaine Metabols U Cannabinoids Screen Attending/Attestation - Attestation I have personally seen and examined this patient.: Yes I have fully participated in the care of the patient.: Yes I have reviewed all pertinent clinical information: Yes
--- NOTE | 2017-07-12 14:44 | CT ---
PROCEDURE: CT Chest without contrast HISTORY: fever of 101.4 neg cxr cough COMPARISON: None. TECHNIQUE: Contiguous axial images were obtained through the chest without intravenous contrast enhancement. Sagittal and coronal reconstructions were performed. Radiation dose (DLP): 552 mGy-cm. This CT exam was performed using one or more of the following dose reduction techniques: Automated exposure control, adjustment of the mA and/or kV according to patient size, and/or use of iterative reconstruction technique. FINDINGS: LUNGS: Clear lungs. Visualized airway clear. MEDIASTINUM: Unremarkable thoracic aorta. No aneurysm. Normal sized heart. Main pulmonary artery unremarkable. No vascular congestion. No lymphadenopathy. PLEURA: No pleural fluid. No pneumothorax. BONES: No fracture. No destructive lesion. UPPER ABDOMEN: Grossly unremarkable. OTHER FINDINGS: None. IMPRESSION: Unremarkable non-contrast enhanced CT of the chest. No evidence of pneumonia
--- NOTE | 2017-07-12 14:52 | HP ---
HISTORY OF PRESENT ILLNESS: I saw him resting comfortably in bed. He came into the ER yesterday. He had dizziness, near-syncope. He said these happened to him in the past. He was coughing also and the change of weather to the cold He became dizzy and nearly lost consciousness. He says he is compliant with his medications. PAST MEDICAL HISTORY: HIV, on HAART medications. He has had kidney stones in the past. He had 1 kidney removed one time. One other incidence of near-syncope in the past with a fall. FAMILY HISTORY: Unknown. SOCIAL HISTORY: Never smoked. No alcohol. No drugs. ALLERGIES: HE IS ALLERGIC TO PENICILLIN. MEDICATIONS: He takes darunavir, Emtriva, Viramune, and valsartan and hydrochlorothiazide 320/25 with a normal blood pressure right now, we will hold his medications in the meantime. REVIEW OF SYSTEMS: He was dizzy, he is better now. No acute vision or hearing changes. No shortness of breath. No cough. No chest pain or palpitations. No diarrhea. No nausea, vomiting, or constipation. No problems urinating. No back pain or neck pain. He was definitely dizzy, almost fell, almost felt the whole room is spinning. No skin issues. No urinary issues. Not anxious. Not nervous. PHYSICAL EXAMINATION: VITAL SIGNS: He has a 101.8 temp; high; 94 pulse; 18 respiratory rate; 145/42 blood pressure; and 100% O2 sat. GENERAL: He is well appearing right now in the hospital bed. alert and oriented x3. HEENT: Head is atraumatic, normocephalic. Extraocular muscles are intact. Pupils are equal and reactive to light. Throat is moist. NECK: Supple. HEART: Regular rate. Normal S1, S2. LUNGS: Clear to auscultation. Good air exchange. No wheezes. No rhonchi. No rales. ABDOMEN: Soft, nontender. Positive bowel sounds. No guarding. No rebound. No CVA tenderness. EXTREMITIES: Have no edema. SKIN: For the most part is intact for what I could see. Warm and dry. NEUROLOGIC: GCS of 15. Cranial nerves II through XII grossly intact. At this time, not dizzy. Alert and oriented x3. LYMPHS: Thyroid midline. No palpable appreciable lymphadenopathy. I am not sure why he has a temperature. LABORATORY DATA: He has a 136 sodium, potassium 4.6, BUN 25, creatinine 1.4, GFR is 50, sugar is 104, calcium is 9, magnesium 1.6, total bili is 0.6. AST is 114, ALT is 132, and alk phos is 58. Lactate dehydrogenase is 640. Total creatinine kinase is 299. Troponin I is less than 0.01. Total protein is 7.6, albumin is 4. Urine is clean. Toxicology screen negative for the flu. White count is 5.2, hemoglobin hematocrit 49.4, and platelets are 95. IMPRESSION AND PLAN: He is here for syncope, temperature, history of human immuno deficiency. We are going to consult Neurology, Infectious Disease, and Pulmonary. There is no report of a chest x-ray yet. To me, it is not read Pulmonary involved. Edison Pack DO MTDGm
--- NOTE | 2017-07-12 16:57 | CARD ---
APPROVED REPORT EKG Measurement Heart [id number] <Conclusion> Normal sinus rhythm Normal ECG
--- NOTE | 2017-07-12 19:36 | US ---
PROCEDURE: Bilateral carotid artery duplex ultrasound HISTORY: Carotid stenosis CVA PHYSICIAN(S): Wilfredo Scherer MD. TECHNIQUE: Duplex sonography and color-flow Doppler were used to evaluate the carotid bifurcations and limited segments of the vertebral arteries bilaterally. FINDINGS: There is mild smooth diffuse hypoechoic plaque noted at the carotid bifurcations bilaterally. The peak systolic velocity in the proximal right internal carotid artery is 82 cm/sec. This corresponds to a 20 to 39% proximal right ICA stenosis. Normal systolic velocities are noted in the proximal right external carotid artery. There is antegrade flow in the right vertebral artery. The peak systolic velocity in the proximal left internal carotid artery is 78 cm/sec. This corresponds to a 20 to 39% proximal left ICA stenosis. Normal systolic velocities are noted in the proximal left external carotid artery. There is antegrade flow in the left vertebral artery. IMPRESSION: 1. Bilateral 20-39% proximal ICA stenoses. 2. Antegrade flow in both vertebral arteries.
--- NOTE | 2017-07-12 23:44 | CON ---
DATE: 07/12/2017 CHIEF COMPLAINT: Fever and syncope x1 day. HISTORY OF PRESENT ILLNESS: This is a 72-year-old male with positive HIV and kidney stones, who works as the pharmacist. He had cough, and he had syncopal episode. He was admitted, had a temperature of 101.8. Infectious disease consultation requested. The patient is having pulmonary symptoms of cough, and there has been no abdominal pain, diarrhea, or constipation. The cough is nonproductive. PAST MEDICAL HISTORY: Significant for HIV and kidney stones. PAST SURGICAL HISTORY: Noncontributory. ALLERGIES: THE PATIENT IS ALLERGIC TO PENICILLIN TYPE OF ALLERGY, IT IS NOT CLEAR, QUESTIONABLE RASH. MEDICATIONS: His HIV medications are as stated, and include Viramune, emtricitabine, darunavir, cobicistat. PHYSICAL EXAMINATION: VITAL SIGNS: The patient is in bed with a temperature of 98, T-max is 101.8, heart rate of 104, respiratory rate of 22, and blood pressure is 130/60. HEENT: Unremarkable. NECK: Supple. LUNGS: Have decreased breath sounds. HEART: Normal S1, S2. ABDOMEN: Soft, nontender. LABORATORY DATA: Laboratory examination reveals the patient's white count of 5.4, hemoglobin is noted, and 10% bandemia, and the patient's MCV is 103. Urinalysis is noted. The chemistries are reviewed. LFT elevations. Influenza is negative, and chest x-ray was reported to be negative. EKG shows a PDTC of 427. ASSESSMENT AND PLAN: This is a 72-year-old male with positive human immunodeficiency virus and heart, kidney stones, and with normal white count, however, he does have 10% bandemia, temperature of 101.8, respiratory rate of 22, heart rate of 104 with persistent coughing. Chest x-ray negative. We will order a CAT scan at night. The patient was started on Levaquin because of penicillin allergy. Pending blood cultures, urine cultures, sputum culture, and HIV PCR and T-cell studies and procalcitonin. The patient was started on Solu Medrol by both and Dr. Powers, and we will follow closely with you. Kenny Gonzalez MD
--- NOTE | 2017-07-13 00:05 | CON ---
DATE: 07/12/2017 LOCATION: The patient was seen earlier today in room 270, bed 2. CHIEF COMPLAINT: Weakness in several days. HISTORY OF PRESENT ILLNESS: This is a 72-year-old male who is positive HIV, has been on HAART therapy, does not recall the name of his medication. He follows with Dr. Oswald Montes in [facility] and [facility]. He says he has been undetectable now for many years. He has adequate CD4 count although he does not remember the name of his medications and the exact numbers of his T cells. He has undetectable for many years. He states that he had gone to his pharmacy and had cough, became dizzy, and loss of consciousness and he was brought to the emergency room. He denied any fevers, any chills, or any chest pain. No headaches. No nausea or vomiting. No dysuria or frequency. PAST MEDICAL HISTORY: Significant for his HIV and he also has had kidney stones in the past. PAST SURGICAL HISTORY: Significant for noncontributory. HOME MEDICATIONS: List of medications at home, he is not sure with HIV medications. It is listed that he is on Viramune, Emtriva, and Prezcobix. In addition to his HAART, blood pressure medication of valsartan, hydrochlorothiazide. ALLERGIES: HE IS ALLERGIC TO PENICILLIN. HE DESCRIBES A QUESTIONABLE RASH OF MANY MANY YEARS AGO. PHYSICAL EXAMINATION: GENERAL: He is in bed, in no acute distress. VITAL SIGNS: Temperature of 101.8 yesterday, heart rate of 104, respiratory rate 22, and blood pressure is 120/80. HEENT: Unremarkable. NECK: Supple. LUNGS: Have decreased breath sounds. HEART: Normal S1, S2. ABDOMEN: Soft, nontender. No organomegaly. No rebound. No guarding. No masses. LABORATORY DATA: Reveals the patient's white count is 5.2, hemoglobin of 17, MCV of 103, and platelets of 95 with 47% granulocytosis. Chemistry reveals a BUN of 25, creatinine of 1.4, it was 1.3 and 1.4 in 2017 of the two. LFTs are elevated. Urinalysis is noted to be unremarkable. Toxicology is negative. Influenza is negative. Dr. Riya Kemp's history and physical examination is reviewed. The patient's chest x-ray is reported to be clear. The patient's EKG shows QTC of 427 and normal sinus rhythm and normal EKG. Review of orders revealed the patient's blood cultures are pending. Urine cultures are pending. The patient was started on IV Levaquin. Kenny Gonzalez MD
[2017-07-13] MEDS: Albuterol-Ipratrop 3 mg / 0.5 (3 ml) UD IH SCH ×3 (01:11→13:13)
[2017-07-13] MEDS: Sodium Chloride 0.45% 1,000 ML IV SCH (05:32)
[2017-07-13 06:39] LABS: HEMOGLOBIN 15.8 g/dL (14.0-18.0); MEAN CELL VOLUME 102.1 fl (80.0-105.0); MEAN CORPUSCULAR HEMOGLOBIN 36.7 pg (25.0-35.0); MEAN CORPUSCULAR HGB CONC 35.9 g/dl (31.0-37.0); MEAN PLATELET VOLUME 10.7 fl (7.0-11.0); RBC 4.31 10^6/uL (3.5-6.1); RED CELL DISTRIBUTION WIDTH 12.9 % (11.5-14.5); WHITE BLOOD COUNT 3.2 10^3/ul (4.5-11.0)
[2017-07-13 07:19] LABS: ALB/GLOB RATIO 1.1 (1.1-1.8); ALBUMIN 3.7 g/dL (3.0-4.8); ALT/SGPT 140 U/L (7-56); AST/SGOT 111 U/L (17-59); BLOOD UREA NITROGEN 34 mg/dL (7-21); CALCIUM 8.8 mg/dL (8.4-10.5); GFR AFRICAN-AMERICAN > 60; GFR NON-AFRICAN AMERICAN 55
--- NOTE | 2017-07-13 07:20 | PN ---
DATE: 07/13/2017 PULMONARY NOTE SUBJECTIVE: The patient appears very comfortable this morning. He is not short of breath at rest. PHYSICAL EXAMINATION VITAL SIGNS: Temperature is 98.4, pulse 65, respirations 18, blood pressure 117/73. Oxygen saturation on room air is 96%. HEENT: Normocephalic, atraumatic. No JVD. CARDIOVASCULAR: Positive S1, S2. No S3 gallop. LUNGS: Improved breath sounds at the bases. Much less/minimal rhonchi. No wheezing. EXTREMITIES: No clubbing, cyanosis or edema. Calves are nontender to palpation. GI: Abdomen is soft, nontender and nondistended. Bowel sounds are positive. SKIN: No acute rash. NEUROLOGIC: Limited at the present time. PERTINENT LABORATORY DATA: CAT scan of the chest was done yesterday. The CAT scan is unremarkable. There is no evidence of pneumonia. There is no evidence of mass, nodule, or lymphadenopathy. IMPRESSION: 1. Near syncope. 2. Acute bronchitis. 3. Acute bronchospasm. 4. Human immunodeficiency virus positivity. PLAN: The patient appears very comfortable this morning. He is not short of breath at rest. The dizzy spells have now resolved. He does state to feeling much, much better this morning. I did review the CAT scan of the chest. The CAT scan is unremarkable. On physical exam, there is a significant decrease in the bronchospasm. In addition, there is no significant alveolar-arterial gradient. I will continue the current nebulizer treatments and change to oral steroids this morning. The patient remains on intravenous Levaquin. Input by Dr. Gonzalez (Infectious Disease) is noted. Input by Neurology (Dr. Sultana) is also noted. Clinical status of the patient is significantly improved. I will discuss the above with Dr. Pack this morning. Raul Powers MD MTDD
[2017-07-13] MEDS: Budesonide 0.5 mg/2 ml Inhal Susp UD IH SCH (08:00)
[2017-07-13] MEDS ORDERED: levoFLOXacin 750 mg in D5W 750 MG/150 ML BAG IVPB SCH (10:00)
[2017-07-13] MEDS: Magnesium Oxide 400 mg Tab UD PO SCH (11:05)
[2017-07-13] MEDS: NEVIRAPINE 400 MG PO SCH (11:07)
[2017-07-13] MEDS: COBICISTAT PO SCH (11:07)
[2017-07-13] MEDS: DARUNAVIR PO SCH (11:07)
[2017-07-13 12:05] VITALS: BP 123/72; PULSE 89; RESP 18; TEMP 98.3
--- NOTE | 2017-07-13 13:14 | PN ---
DATE: SUBJECTIVE: He was in the hospital, he had a pneumonia as per Infectious Disease, also with his cough. He is HIV candidate, on HAART. He was put on Levaquin. His regular medication is prednisone and was also improved on the medication, he had a little COPD also mixed in with this. He is doing better. He wants to go home. We will discharge him. He had a negative CAT scan of the chest. OBJECTIVE: VITAL SIGNS: He has a 98.4 temperature, 65 pulse, 117/70 blood pressure, 20 respiratory rate, 96% O2 sat on room air. HEAD: Atraumatic, normocephalic. HEART: Regular rate with decreased breath sounds but clear today. No wheeze or rhonchi. ABDOMEN: Soft. EXTREMITIES: No edema. LABORATORY DATA: Negative for flu. He has a 3.2 white count, 15.8 hemoglobin, 95 platelets. He has 135 sodium, potassium 4.1, BUN 34, creatinine 1.3, GFR is 55, sugar is 170, calcium is 8.8, total bili is 0.4, AST is 111, ALT is 140, alk phos 50, total protein 7.2. He was here for a near syncopal chronic obstructive pulmonary disease kind of a picture, rule out pneumonia. He got better with an IV Levaquin, prednisone, DuoNeb, and will be followed up on the outpatient with his primary care doctor. Edison Pack DO MTDGm
[2017-07-13 18:31] LABS: % CD4 (T HELPER CELL) 13 Percent (30-61); % CD8 (SUPPRESSOR T CELL) 40 Percent (12-42); ABSOLUTE CD4 CELLS 181 Cells/mcL (490-1740); ABSOLUTE CD8 CELLS 572 Cells/mcL (180-1170); ABSOLUTE LYMPHOCYTES 1423 Cells/mcL (850-3900); HELPER/SUPPRESSOR RATIO 0.32 Ratio (0.86-5.00)
--- NOTE | 2017-07-13 19:55 | PN ---
DATE: 07/13/2017 SUBJECTIVE: The patient is in bed, in no acute distress, was seen early this morning in room 270, bed 2. He is doing well. No nausea. No vomiting or chest pain. PHYSICAL EXAMINATION: VITAL SIGNS: Temperature is 98, blood pressure is 120/70, respiratory rate 18. HEENT: Unremarkable. NECK: Supple. LUNGS: Have decreased breath sounds. HEART: Normal S1, S2. ABDOMEN: Soft. LABORATORY EXAMINATION: Reveals a white count of 3.2, hemoglobin of 15. Procalcitonin 0.07 and creatinine is 1.3. Urinalysis is noted. Serology is negative. Microbiology reveals the blood and urine cultures are negative and the patient had a CAT scan which was negative. ASSESSMENT AND PLAN: This is a 72-year-old male with history of positive human immunodeficiency virus, on HAART therapy followed by Dr. Jamil Montes in [facility] and T-cells undetectable. Admitted with loss of consciousness. No fevers and chills. At this time, although he did have fevers on admission with a temperature of 101.8. Thus far, all the cultures were negative, procalcitonin was negative with serves systemic inflammatory response syndrome and the patient to be followed up as outpatient and negative CAT scan. We will follow with you as outpatient. Kenny Gonzalez MD
[2017-07-15] MEDS ORDERED: levoFLOXacin 750 MG TAB PO SCH (10:00)
== END 2017-07-13 14:25 | disposition home or self-care (01) | DRG 191 ==
LOC: ED 16:01 → ERH 18:13 → 2RSO 20:17
PROVIDERS: ADMIT Family Medicine; ATTEND Family Medicine
PROC: 3E0F7GC Introduction of Other Therapeutic Substance into Respiratory Tract, Via Natural or Artificial Opening (ICD-10-PCS; principal; 2017-07-12)
DX: J44.0 Chronic obstructive pulmonary disease with (acute) lower respiratory infection (principal); B19.10 Unspecified viral hepatitis B without hepatic coma; R65.10 Systemic inflammatory response syndrome (SIRS) of non-infectious origin without acute organ dysfunction; Z21 Asymptomatic human immunodeficiency virus [HIV] infection status; J20.9 Acute bronchitis, unspecified; I10 Essential (primary) hypertension; R55 Syncope and collapse; Z87.442 Personal history of urinary calculi; Z88.0 Allergy status to penicillin

== ENCOUNTER 2017-08-14 21:00 | Inpatient (IN) | payer MEDICARE, BC ==
[2017-08-14] MEDS ORDERED: Sodium Chloride 0.9% 1,000 ML IV STA (21:30)
[2017-08-14] MEDS ORDERED: Morphine 4 mg/ml ISec IVP STA (21:30)
--- NOTE | 2017-08-14 21:37 | ED PDOC ---
Arrival/HPI - General Chief Complaint: Abdominal Pain Time Seen by Provider: 08/14/17 21:26 Historian: Patient - History of Present Illness Narrative History of Present Illness (Text): 08/14/17 21:25 A 72 year old male, whose past medical history includes kidney stones, hypertension, Hepatitis B, and HIV+, presents to the emergency department complaining of right flank discomfort radiating to right abdomen. Patient reports also experiences mild nausea. Denies any vomiting, diarrhea, fever, chills, any urinary symptoms, or any other complaints at this time. No PMD Time/Duration: Other (earlier this morning) Symptom Onset: Sudden Symptom Course: Unchanged Past Medical History - Provider Review Nursing Documentation Reviewed: Yes - Infectious Disease Hx of Infectious Diseases: None - Cardiac Hx Cardiac Disorders: No Hx Angina: No Hx Cardiac Arrhythmia: No Hx Circulatory Problems: No Hx Congestive Heart Failure: No Hx Heart Murmur: No Hx Heart Transplant: No Hx Hypertension: Yes Hx Internal Defibrillator: No Hx Mitral Valve Prolapse: No Hx Pacemaker: No Hx Peripheral Edema: No Hx Peripheral Vascular Disease: No - Pulmonary Hx Respiratory Disorders: No Hx Asthma: No Hx Bronchitis: No Hx Chronic Obstructive Pulmonary Disease (COPD): No Hx Emphysema: No Hx Pneumonia: No Hx Respiratory Aspiration: No Hx Respiratory Tract Infection: No Hx Sleep Apnea: No Hx Tuberculosis: No Other/Comment: Pt has history of HIV - Neurological Hx Neurological Disorder: No Hx Alzheimer's Disease: No HX Cerebrovascular Accident: No Hx Dementia: No Hx Dizziness: No Hx Meningitis: No Hx Migraine: No Hx Parkinson's Disease: No Hx Seizures: No Hx Transient Ischemic Attacks (TIA): No - HEENT Hx HEENT Disorder: No Hx Blind: No Hx Cataracts: No Hx Deafness: No Hx Difficulty Chewing: No Hx Epistaxis: No Hx Glaucoma: No Hx Macular Degeneration: No - Renal Hx Renal Disorder: No Hx Dialysis: No Hx Kidney Stones: Yes Hx Neurogenic Bladder: No Hx Pyelonephritis: No Hx Renal Cancer: No Hx Renal Failure: No - Endocrine/Metabolic Hx Endocrine Disorders: No Hx Adrenal Cancer: No Hx Diabetes Insipidus: No Hx Diabetes Mellitus Type 1: No Hx Diabetes Mellitus Type 2: No Hx Hyperthyroidism: No Hx Hypothyroidism: No Hx Systemic Lupus Erythematosus: No - Hematological/Oncological Hx Hepatitis B: Yes Other/Comment: HIV - Integumentary Hx Dermatological Disorder: Yes Hx Basal Cell Carcinoma: No Hx Eczema: No Hx Melanoma: No Hx Psoriasis: No Hx Squamous Cell Carcinoma: No Other/Comment: shingles in the eye, - Musculoskeletal/Rheumatological Hx Falls: No - Gastrointestinal Hx Gastrointestinal Disorders: No Hx Colostomy: No Hx Crohn's Disease: No Hx Diverticulitis: No Hx Gall Bladder Disease: No Hx Gastroesophageal Reflux: No Hx Ileostomy: No Hx Liver Failure: No Hx Pancreatitis: No HX Swallowing Problems: No - Genitourinary/Gynecological Hx Genitourinary Disorders: No Hx Hematuria: No Hx Incontinence: No Hx Prostate Problems: No Hx Sexually Transmitted Diseases: No Hx Urinary Tract Infection: No - Psychiatric Hx Psychophysiologic Disorder: No Hx Anxiety: No Hx Bipolar Disorder: No Hx Depression: No Hx Emotional Abuse: No Hx Hallucinations: No Hx Panic Disorder: No Hx Post Traumatic Stress Disorder: No Hx Psychosis: No Hx Physical Abuse: No Hx Schizophrenia: No Hx Sexual Abuse: No Hx Substance Use: No - Surgical History Hx Amputation: No Hx Appendectomy: No Hx Cardiac Catheterization: No Hx Cholecystectomy: No Hx Coronary Stent: No Hx Gastric Bypass Surgery: No Hx Hysterectomy: No Hx Joint Replacement: No Hx Kidney Transplant: No Hx Liver Transplant: No Hx Mastectomy: No Hx Musculoskeletal Surgery: No Hx Open Heart Surgery: No Hx Orthopedic Surgery: No Hx Splenectomy: No Hx Valve Replacement: No - Anesthesia Hx Anesthesia: Yes Hx Anesthesia Reactions: No Hx Malignant Hyperthermia: No Family/Social History - Physician Review Nursing Documentation Reviewed: Yes Family/Social History: No Known Family HX Smoking Status: Never Smoked Hx Alcohol Use: No Hx Substance Use: No Allergies/Home Meds Allergies/Adverse Reactions: Allergies Penicillins Allergy (Intermediate, Verified 07/11/17 16:29) RASH Home Medications: Home Meds Medication Instructions Recorded Confirmed Darunavir/Cobicistat [Prezcobix 1 tab PO DAILY 08/05/16 08/14/17 800 mg-150 mg Tablet] Nevirapine [Viramune] 400 mg PO DAILY 08/06/16 08/14/17 Valsartan/Hydrochlorothiazide 1 tab PO DAILY 08/06/16 08/14/17 [Diovan Hct 320-25 mg Tablet] Valacyclovir HCl [Valacyclovir HCl] 500 mg PO HS 08/14/17 08/14/17 Review of Systems - Physician Review All systems were reviewed & negative as marked: Yes - Review of Systems Constitutional: absent: Fevers, Night Sweats Gastrointestinal: Nausea (mild). absent: Diarrhea, Vomiting Genitourinary Male: absent: Dysuria, Frequency, Hematuria, Urinary Output Changes Musculoskeletal: Other (right flank discomfort radiating to right abdomen) Physical Exam Vital Signs Reviewed: Yes Vital Signs Temp Pulse Resp BP Pulse Ox 08/14/17 21:11 98.8 F 71 17 168/97 H 95 Temperature: Afebrile Blood Pressure: Hypertensive Pulse: Regular Respiratory Rate: Normal Appearance: Positive for: Well-Appearing Pain Distress: None Mental Status: Positive for: Alert and Oriented X 3 - Systems Exam Head: Present: Atraumatic, Normocephalic Pupils: Present: PERRL Extroacular Muscles: Present: EOMI Conjunctiva: Present: Normal Mouth: Present: Moist Mucous Membranes Neck: Present: Normal Range of Motion Respiratory/Chest: Present: Clear to Auscultation, Good Air Exchange. No: Respiratory Distress, Accessory Muscle Use Cardiovascular: Present: Regular Rate and Rhythm, Normal S1, S2. No: Murmurs Abdomen: Present: Normal Bowel Sounds. No: Tenderness, Distention, Peritoneal Signs Back: Present: Normal Inspection. No: Other (no flank tenderness) Upper Extremity: Present: Normal Inspection. No: Cyanosis, Edema Lower Extremity: Present: Normal Inspection. No: Edema Neurological: Present: GCS=15, CN II-XII Intact, Speech Normal Skin: Present: Warm, Dry, Normal Color. No: Rashes Psychiatric: Present: Alert, Oriented x 3, Normal Insight, Normal Concentration Medical Decision Making ED Course and Treatment: 08/14/17 21:32 Impression: 72 year old male with right flank discomfort radiating to right abdomen. Physical examination is benign. Plan: -- Abd/Pelvis CT -- Labs -- Urinalysis -- Morphine -- IV Fluids -- Zofran -- Reassess and disposition Progress Notes: 08/14/2017 22:38 EXAM: CT Abdomen and Pelvis Without Intravenous Contrast Dictated and Authenticated by: Mamadou Brooks MD 08/14/2017 10:38 PM IMPRESSION: 1. 3.3 mm distal right ureteral calculus with mild right hydronephrosis and perinephric stranding. 2. Bilateral nephrolithiasis. 3. Remainder of findings as above. 08/15/17 00:[address] Cordova who is aware and agrees with the plan. Accepts patient into her service with Urologist consult under Dr. Genny Estes. - Lab Interpretations Lab Results: 08/14/17 21:55 08/14/17 21:55 Lab Results 08/14/17 21:55: Sodium 138, Potassium 4.4, Chloride 101, Carbon Dioxide 27, Anion Gap 14, BUN 28 H, Creatinine 1.5, Est GFR ( Amer) 56, Est GFR (Non- Af Amer) 46, Random Glucose 131 H, Calcium 9.7, Total Bilirubin 0.8, AST 55, ALT 57 H, Alkaline Phosphatase 68, Total Protein 7.3, Albumin 3.9, Globulin 3.4 , Albumin/Globulin Ratio 1.2, Lipase 91 08/14/17 21:55: WBC 8.9 D, RBC 4.34, Hgb 16.0, Hct 44.8, MCV 103.2, MCH 36.9 H , MCHC 35.7, RDW 13.5, Plt Count 147, MPV 10.4 I have reviewed the lab results: Yes - RAD Interpretation Radiology Orders: 08/14/17 21:30 ABD & PELVIS W/O PO OR IV CONT [CT] Stat - Medication Orders Current Medication Orders: Sodium Chloride (Sodium Chloride 0.9%) 1,000 mls @ 100 mls/hr IV .Q10H STA Stop: 08/15/17 10:44 Discontinued Medications Hydromorphone HCl (Dilaudid) 1 mg IVP STAT STA Stop: 08/15/17 00:20 Last Admin: 08/15/17 00:43 Dose: 1 mg MAR Pain Assessment Document 08/15/17 00:43 RD (Rec: 08/15/17 00:43 RD [id number]) Pain Reassessment Is this a pain reassessment? No Sleep Is patient sleeping during reassessment? No Presence of Pain Presence of Pain Yes IVP Administration Document 08/15/17 00:43 RD (Rec: 08/15/17 00:43 RD [id number]) Charges for Administration # of IVP Administrations 1 Sodium Chloride (Sodium Chloride 0.9%) 1,000 mls @ 999 mls/hr IV .Q1H1M STA Stop: 08/14/17 22:30 Last Admin: 08/14/17 21:52 Dose: 999 mls/hr eMAR Start Stop Document 08/14/17 21:52 IT (Rec: 08/14/17 21:53 IT [id number]) Intravenous Solution Start Date 08/14/17 Start Time 21:53 End Date 08/14/17 End time 22:53 Total Infusion Time 60 Morphine Sulfate (Morphine) 4 mg IVP STAT STA Stop: 08/14/17 21:31 Last Admin: 08/14/17 21:52 Dose: 4 mg MAR Pain Assessment Document 08/14/17 21:52 IT (Rec: 08/14/17 21:52 IT [id number]) Pain Reassessment Is this a pain reassessment? No Presence of Pain Presence of Pain Yes Pain Scale Used Pain Scale Used Numeric IVP Administration Document 08/14/17 21:52 IT (Rec: 08/14/17 21:52 IT [id number]) Charges for Administration # of IVP Administrations 1 Ondansetron HCl (Zofran Inj) 4 mg IVP ONCE ONE Stop: 08/14/17 21:31 Last Admin: 08/14/17 21:52 Dose: 4 mg IVP Administration Document 08/14/17 21:52 IT (Rec: 08/14/17 21:52 IT [id number]) Charges for Administration # of IVP Administrations 1 - Scribe Statement The provider has reviewed the documentation as recorded by the Efe Buitrago Provider Scribe Attestation: All medical record entries made by the Dianeibjuan were at my direction and personally dictated by me. I have reviewed the chart and agree that the record accurately reflects my personal performance of the history, physical exam, medical decision making, and the department course for this patient. I have also personally directed, reviewed, and agree with the discharge instructions and disposition. Disposition/Present on Arrival - Present on Arrival Any Indicators Present on Arrival: No History of DVT/PE: No History of Uncontrolled Diabetes: No Urinary Catheter: No History of Decub. Ulcer: No History Surgical Site Infection Following: None - Disposition Have Diagnosis and Disposition been Completed?: Yes Diagnosis: Renal colic, Intractable pain Disposition: HOSPITALIZED Disposition Time: 00:47 Patient Problems: Current Active Problems Problem Status Onset Intractable pain Acute Renal colic Acute Condition: STABLE Referrals: PCP,NO [Primary Care Provider] - Follow up with primary Forms: Attune (Pakistani)
[2017-08-14 22:05] LABS: MEAN CELL VOLUME 103.2 fl (80.0-105.0); MEAN CORPUSCULAR HEMOGLOBIN 36.9 pg (25.0-35.0); MEAN CORPUSCULAR HGB CONC 35.7 g/dl (31.0-37.0); MEAN PLATELET VOLUME 10.4 fl (7.0-11.0); RBC 4.34 10^6/uL (3.5-6.1); RED CELL DISTRIBUTION WIDTH 13.5 % (11.5-14.5); WHITE BLOOD COUNT 8.9 10^3/ul (4.5-11.0)
[2017-08-14 22:13] LABS: ALB/GLOB RATIO 1.2 (1.1-1.8); ALBUMIN 3.9 g/dL (3.0-4.8); CALCIUM 9.7 mg/dL (8.4-10.5)
--- NOTE | 2017-08-14 22:38 | CT ---
EXAM: CT Abdomen and Pelvis Without Intravenous Contrast CLINICAL HISTORY: 72 years old, male; Pain; Abdominal pain; Flank; Right; Prior surgery; Surgery date: 6+ months; Surgery type: HX nephrectomy; Patient HX: HX of kidney stones; Additional info: Right flank pain to abdomen TECHNIQUE: Axial computed tomography images of the abdomen and pelvis without intravenous contrast. All CT scans at this facility use one or more dose reduction techniques, viz.: automated exposure control; ma/kV adjustment per patient size (including targeted exams where dose is matched to indication; i.e. head); or iterative reconstruction technique. Coronal and sagittal reformatted images were created and reviewed. COMPARISON: US - HEPATIC 2016-08-07 15:01 FINDINGS: Lower thorax: Small hiatal hernia. ABDOMEN: Liver: Unremarkable. Gallbladder and bile ducts: Unremarkable. No calcified stones. No ductal dilation. Pancreas: Unremarkable. No ductal dilation. Spleen: Unremarkable. No splenomegaly. Adrenals: Unremarkable. No mass. Kidneys and ureters: Mild right hydronephrosis. Right perinephric stranding. Nonobstructing right renal calculi. 3.3 mm calculus distal right ureter. Nonobstructing left renal calculi. Stomach and bowel: Unremarkable. No obstruction. Appendix: No findings to suggest acute appendicitis. PELVIS: Bladder: Unremarkable. No stones. Reproductive: Unremarkable as visualized. ABDOMEN and PELVIS: Intraperitoneal space: Unremarkable. No free air. No significant fluid collection. Bones/joints: Degenerative changes lumbosacral spine, most severe at L5-S1. No acute fracture. No dislocation. Soft tissues: Unremarkable. Vasculature: Unremarkable. No abdominal aortic aneurysm. Lymph nodes: Unremarkable. No enlarged lymph nodes. IMPRESSION: 1. 3.3 mm distal right ureteral calculus with mild right hydronephrosis and perinephric stranding. 2. Bilateral nephrolithiasis. 3. Remainder of findings as above.
[2017-08-15] MEDS ORDERED: HYDROmorphone 0.5 mg/0.5 ml ISec IVP STA (00:19)
[2017-08-15] MEDS ORDERED: Sodium Chloride 0.9% 1,000 ML IV STA (00:45)
[2017-08-15 02:03] LABS: URINE BILIRUBIN NEGATIVE (NEGATIVE); URINE BLOOD MODERATE (NEGATIVE); URINE GLUCOSE (UA) NEGATIVE (NEGATIVE); URINE LEUKOCYTE ESTERASE NEGATIVE Leu/uL (NEGATIVE); URINE NITRATE NEGATIVE (NEGATIVE); URINE PROTEIN NEGATIVE mg/dL (<30 mg/dL); URINE UROBILINOGEN 0.2 E.U./dL (<1 E.U./dL)
[2017-08-15 02:12] LABS: URINE APPEARANCE CLEAR (CLEAR); URINE COLOR YELLOW (YELLOW)
[2017-08-15 02:18] LABS: URINE EPITHELIAL CELLS 0 - 2 /hpf (0-5); URINE WBC 0 - 2 /hpf (0-6)
[2017-08-15 02:23] VITALS: BMI 29.2
[2017-08-15] MEDS ORDERED: HYDROmorphone 0.5 mg/0.5 ml ISec IVP PRN (09:44)
[2017-08-15] MEDS ORDERED: VALSARTAN PO SCH (10:00)
[2017-08-15] MEDS ORDERED: EMTRICITABINE 200 MG PO SCH (10:00)
[2017-08-15] MEDS ORDERED: [UNRECOGNIZED DRUG - OTHER] PO SCH (10:00)
[2017-08-15] MEDS ORDERED: HYDROCHLOROTHIAZIDE PO SCH (10:00)
[2017-08-15] MEDS ORDERED: COBICISTAT PO SCH (10:00)
[2017-08-15] MEDS ORDERED: NEVIRAPINE 400 MG PO SCH (10:00)
[2017-08-15] MEDS ORDERED: DARUNAVIR PO SCH (10:00)
[2017-08-15] MEDS: Morphine 4 mg/ml ISec IV PRN ×2 (10:25→22:22)
--- NOTE | 2017-08-15 17:26 | RAD ---
Abdomen dated 08/15/2017 History: Urolithiasis. Multiple views of the upper and lower abdomen performed. Comparison made with CT scan abdomen and pelvis dated 08/14/2017. . Small 3 mm calcification overlying the right upper/mid true pelvis may represent previously noted 3 mm distal right ureteral calculus. Previously noted multiple bilateral small bilateral renal calculi are less well seen compared to prior high-resolution CT scan. Impression: Nephrolithiasis less well seen compared to prior high-resolution prior CT scan abdomen and pelvis. . Small approximately 3 mm calculus in the right true pelvis may represent distal right ureteral calculus seen on prior CT scan
[2017-08-15] MEDS: Sodium Chloride 0.9% 1,000 ML IV SCH (18:34)
[2017-08-15] MEDS: Albuterol-Ipratrop 3 mg / 0.5 (3 ml) UD IH SCH (21:44)
[2017-08-16] MEDS: Albuterol-Ipratrop 3 mg / 0.5 (3 ml) UD IH SCH ×4 (04:22→22:32)
--- NOTE | 2017-08-16 04:45 | CON ---
DATE: 08/15/2017 REFERRING PHYSICIAN: Jazlyn Cordova MD REASON FOR CONSULT: Chronic lung disease, cough and shortness of breath with also right renal stone pain. HISTORY OF PRESENT ILLNESS: This is a 72-year-old gentleman with past medical history significant for kidney stones, hypertension, history of hepatitis B, HIV positive, chronic lung disease; from the last couple of days been having cough and shortness of breath, now comes in with right-sided abdominal pain. He also had some nausea before coming. Had a CT of the abdomen done, which shows right ureteral stone with some hydronephrosis. No hematuria. No diarrhea or leg swelling reported. PAST MEDICAL HISTORY: HIV positive, hepatitis B, history of renal stone, chronic lung disease, history of shingles involving the eye in the past. SOCIAL HISTORY: Denies smoking or alcohol use. FAMILY HISTORY: No significant cardiopulmonary disease reported. ALLERGIC: Penicillin. MEDICATIONS: He is on antiviral medication including Prezcobix, Diovan 320 mg daily, Emtriva daily, Flomax 0.4 mg twice a day, hydrochlorothiazide 25 mg daily, morphine 4 mg IV q. 4 hours p.r.n., Viramune 400 mg daily, Pepcid 40 mg daily, Valtrex 500 mg at bedtime. REVIEW OF SYSTEMS: No headache, no rhinitis. Has some cough, not much sputum production. No chest pain. No nausea at present. No vomiting, right-side colicky pain. No leg pain or leg swelling. PHYSICAL EXAMINATION: GENERAL: Lying in the bed, no acute distress. VITAL SIGNS: Temperature is 98, heart rate is 86, respiratory rate is 20, blood pressure 141/79, pulse ox of 96% on room air. HEENT: Moist mucous membrane. Crowded airway. Mallampati score is 4. NECK: Supple. No JVD. LUNGS: Has a fair airflow with rhonchi. HEART: S1, S2. ABDOMEN: Soft, does have tenderness of the right flank area. EXTREMITIES: There is no edema. NEUROLOGIC: Awake and follows simple commands. LABORATORY DATA: Shows hemoglobin 16.0, hematocrit 44.8, WBC 8.9, platelet is 147. Sodium 138, potassium 4.4, chloride 101, bicarbonate 27, BUN 28, creatinine 1.5, glucose 131, calcium 9.7, total bili 0.8, AST 55, ALT 57. Total protein is 7.3. Albumin is 3.9, lipase is 91. CAT scan of the abdomen shows a renal stone in the right urethra with hydronephrosis. IMPRESSION AND PLAN: Renal stone with hydronephrosis, chronic bronchitis, human immunodeficiency virus positive, hypertension. Agree with the present management with Dr. Cordova. Will add inhaled bronchodilator, IV fluids. Continue Flomax, pain management. Urinalysis and urine culture. Gastric and DVT prophylaxis. Thank you and we will follow with you. Laura Rice MD
--- NOTE | 2017-08-16 05:57 | HP ---
CHIEF COMPLAINT: Abdominal pain. HISTORY OF PRESENT ILLNESS: Mr. Andreas Jones is a 72-year-old male with past medical history is kidney stones, hypertension, hepatitis B and HIV positive, came to the Emergency Department, complaining of right flank pain, radiating to right abdomen. The patient reports also experiences of mild nausea. Denies any vomiting, diarrhea, fever or chills. No headache, no dizziness. We admitted the patient, called Urology consult, started Flomax. PAST MEDICAL HISTORY: As above. HIV positive, hepatitis B positive, hypertension, kidney stones, dermatological disorder, history of shingles in the eye. FAMILY HISTORY: Father and mother noncontributory. HABITS: Never smoked, no drug, no ethanol. ALLERGIES: THE PATIENT IS ALLERGIC TO PENICILLIN. HOME MEDICATIONS: Darunavir, Viramune, Diovan, valacyclovir. REVIEW OF SYSTEMS: The patient is seen and examined on the bedside, still complaining about pain in the right flank, nausea. No diarrhea or vomiting. No dysuria, frequency, hematuria or urinary output changes. Has right flank pain, radiating to the right abdomen. PHYSICAL EXAMINATION: VITAL SIGNS: Temperature 98.8, pulse 71, respiratory rate 17, blood pressure 168/97. HEENT: Head is normocephalic, atraumatic. Eyes, PERRLA. Extraocular muscles are intact. Conjunctivae are clear. Nose is patent. NECK: Supple. No carotid bruits. No JVD. No thyromegaly. CHEST: Bilaterally symmetrical. HEART: S1, S2 positive. LUNGS: Clear to auscultation. ABDOMEN: Soft. Bowel sounds positive. No organomegaly. EXTREMITIES: No edema. No cyanosis. NEUROLOGIC: The patient is awake and alert. Moving all 4 extremities. No focal deficits. LABORATORY DATA: White blood cells 8.9, hemoglobin 16.0, hematocrit 44.8, platelets 147. Sodium 138, potassium 4.4, BUN 28, creatinine 1.5, glucose 131. ASSESSMENT AND PLAN: Mr. Andreas Jones is a 72-year-old male with hyperglycemia, came with nephrolithiasis, Urology consult called with the Dr. Genny Estes, has intractable pain, renal colic, history of human immunodeficiency virus positive, hepatitis B positive, hypertension, kidney stones. Started home medications and put on Flomax, pain management. The patient was coughing, having shortness of breath. Called consult with Dr. Rice, Dr. Genny Estes. Morphine was given for pain, Pepcid for gastrointestinal prophylaxis, getting IV fluid, Zofran for nauseousness. Repeat labs. We will follow up. Jazlyn Cordova MD
[2017-08-16 07:59] LABS: HEMOGLOBIN 15.1 g/dL (14.0-18.0); MEAN CELL VOLUME 103.2 fl (80.0-105.0); MEAN CORPUSCULAR HEMOGLOBIN 36.9 pg (25.0-35.0); MEAN CORPUSCULAR HGB CONC 35.8 g/dl (31.0-37.0); MEAN PLATELET VOLUME 10.4 fl (7.0-11.0); RBC 4.09 10^6/uL (3.5-6.1); RED CELL DISTRIBUTION WIDTH 13.3 % (11.5-14.5); WHITE BLOOD COUNT 10.5 10^3/ul (4.5-11.0)
[2017-08-16] MEDS: Sodium Chloride 0.9% 1,000 ML IV SCH (08:16)
--- NOTE | 2017-08-16 08:23 | PCM.URO ---
Urology Progress Note - Objective Lab Studies: Reviewed (dx:urolothisasis plans: cystoscopy and stent // we are awaiting operating room availability for now pt is npo) Lab Results Last 24 Hours: Laboratory Results - last 24 hr 08/16/17 07:30 WBC 10.5 RBC 4.09 Hgb 15.1 Hct 42.2 MCV 103.2 MCH 36.9 H MCHC 35.8 RDW 13.3 Plt Count 125 MPV 10.4 Intake & Output: Intake & Output 08/15/17 08/16/17 08/16/17 18:59 06:59 18:59 Intake Total 1380 Output Total 1875 Balance -495 Intake: Oral 1380 Output: Urine 1875 Urine, Voided 1875 Other: # Bowel Movements 0 Vital Signs: Vital Signs - 24 hr 08/16/17 07:00 Temperature 98.3 F Pulse Rate 107 H Respiratory 20 Rate Blood Pressure 139/89 O2 Sat by Pulse 94 L Oximetry
[2017-08-16 08:42] LABS: IRON 67 ug/dL (45-180)
[2017-08-16 08:46] LABS: ALB/GLOB RATIO 1.1 (1.1-1.8); ALBUMIN 3.4 g/dL (3.0-4.8); ALT/SGPT 44 U/L (7-56); AST/SGOT 40 U/L (17-59); BLOOD UREA NITROGEN 23 mg/dL (7-21); GFR AFRICAN-AMERICAN > 60; GFR NON-AFRICAN AMERICAN 50; HDL CHOLESTEROL 33 mg/dL (29-60)
[2017-08-16 08:52] LABS: % IRON SATURATION 24 % (20-55); TOTAL IRON BINDING CAPACITY 283 ug/dL (261-462)
[2017-08-16 08:54] LABS: LDL CHOLESTEROL 89 mg/dL (0-129)
[2017-08-16] MEDS ORDERED: DARUNAVIR PO SCH (10:00)
[2017-08-16] MEDS ORDERED: EMTRICITABINE 200 MG PO SCH (10:00)
[2017-08-16] MEDS ORDERED: COBICISTAT PO SCH (10:00)
[2017-08-16] MEDS: NEVIRAPINE 400 MG PO SCH (10:50)
--- NOTE | 2017-08-16 11:35 | RAD ---
HISTORY: urolithiasis COMPARISON: No prior. FINDINGS: BOWEL: Normal. No obstruction. No free air. Moderate constipation BONES: Normal. OTHER FINDINGS: No visible stones IMPRESSION: No active disease.
[2017-08-16 12:24] LABS: FOLATE > 20.0 ng/mL
[2017-08-16] MEDS: Morphine 4 mg/ml ISec IV PRN ×2 (16:09→22:55)
[2017-08-16] MEDS ORDERED: Iohexol 240 (50 ml) ONE (17:06)
[2017-08-16] MEDS ORDERED: Propofol 10 mg/ml Inj (20 ML) ONE (18:50)
[2017-08-16] MEDS ORDERED: Lidocaine 1% Inj (20ml) ONE (18:51)
[2017-08-16] MEDS ORDERED: Gentamicin 80 mg/2mL Inj. ONE (19:07)
--- NOTE | 2017-08-16 19:36 | CP.PCM.CON ---
Past Patient History - Infectious Disease Hx of Infectious Diseases: None - Past Social History Smoking Status: Never Smoked - CARDIAC Hx Hypertension: Yes - PULMONARY Hx Respiratory Disorders: No Hx Asthma: No Hx Bronchitis: No Hx Chronic Obstructive Pulmonary Disease (COPD): No Hx Emphysema: No Hx Pneumonia: No Hx Respiratory Aspiration: No Hx Respiratory Tract Infection: No Hx Sleep Apnea: No Hx Tuberculosis: No Other/Comment: Pt has history of HIV - NEUROLOGICAL Hx Neurological Disorder: No Hx Alzheimer's Disease: No HX Cerebrovascular Accident: No Hx Dementia: No Hx Dizziness: No Hx Meningitis: No Hx Migraine: No Hx Parkinson's Disease: No Hx Seizures: No Hx Transient Ischemic Attacks (TIA): No - HEENT Hx HEENT Problems: No Hx Blind: No Hx Cataracts: No Hx Deafness: No Hx Difficulty Chewing: No Hx Epistaxis: No Hx Glaucoma: No Hx Macular Degeneration: No - RENAL Hx Kidney Stones: Yes - ENDOCRINE/METABOLIC Hx Endocrine Disorders: No Hx Adrenal Cancer: No Hx Diabetes Insipidus: No Hx Diabetes Mellitus Type 1: No Hx Diabetes Mellitus Type 2: No Hx Hyperthyroidism: No Hx Hypothyroidism: No Hx Systemic Lupus Erythematosus: No - HEMATOLOGICAL/ONCOLOGICAL Hx Blood Transfusions: No Hx Blood Transfusion Reaction: No - INTEGUMENTARY Hx Dermatological Problems: Yes Hx Basil Cell: No Hx Eczema: No Hx Melanoma: No Hx Psoriasis: No Hx Squamous Cell: No Other/Comment: shingles in the eye, - MUSCULOSKELETAL/RHEUMATOLOGICAL Hx Falls: Yes - GASTROINTESTINAL Hx Gastrointestinal Disorders: No Hx Colostomy: No Hx Crohn's Disease: No Hx Diverticulitis: No Hx Gall Bladder Disease: No Hx Gastroesophageal Reflux: No Hx Ileostomy: No Hx Liver Failure: No Hx Pancreatitis: No HX Swallowing Problems: No - GENITOURINARY/GYNECOLOGICAL Hx Genitourinary Disorders: No Hx Hematuria: No Hx Incontinence: No Hx Prostate Problems: No Hx Sexually Transmitted Disorders: No Hx Urinary Tract Infection: No - PSYCHIATRIC Hx Psychophysiologic Disorder: No Hx Anxiety: No Hx Bipolar Disorder: No Hx Depression: No Hx Emotional Abuse: No Hx Hallucinations: No Hx Panic Symptoms: No Hx Post Traumatic Stress Disorder: No Hx Psychosis: No Hx Physical Abuse: No Hx Schizophrenia: No Hx Sexual Abuse: No Hx Substance Use: No - SURGICAL HISTORY Hx Surgeries: Yes - ANESTHESIA Hx Anesthesia Reactions: No Hx Malignant Hyperthermia: No Meds Allergies/Adverse Reactions: Allergies Allergy/AdvReac Type Severity Reaction Status Date / Time Penicillins Allergy Intermediate RASH Verified 07/11/17 16:29 - Medications Medications: Current Medications Albuterol/Ipratropium (Duoneb 3 Mg/0.5 Mg (3 Ml) Ud) 3 ml IH [id number] [facility] Last Admin: 08/16/17 13:55 Dose: 3 ml Famotidine (Pepcid) 40 mg PO HS [facility] Last Admin: 08/15/17 22:24 Dose: 40 mg Fluticasone Propionate (Flonase) 1 actuation NS Q12 [facility] Hydrochlorothiazide (Hydrodiuril) 25 mg PO DAILY [facility] Last Admin: 08/16/17 10:49 Dose: 25 mg Sodium Chloride (Sodium Chloride 0.9%) 1,000 mls @ 100 mls/hr IV .Q10H [facility] Last Admin: 08/16/17 08:16 Dose: 100 mls/hr Loratadine (Claritin) 10 mg PO DAILY [facility] Montelukast Sodium (Singulair) 10 mg PO HS [facility] Morphine Sulfate (Morphine) 4 mg IV Q4H PRN PRN Reason: Pain, Mild (1-3) Last Admin: 08/16/17 16:09 Dose: 4 mg Non-Formulary Medication (Darunavir/Cobicistat [Prezcobix 800 Mg-150 Mg Tablet] ) 1 tab PO DAILY [facility] Last Admin: 08/16/17 10:51 Dose: Not Given Non-Formulary Medication (Emtricitabine [Emtriva]) 200 mg PO DAILY [facility] Last Admin: 08/16/17 10:50 Dose: 200 mg Non-Formulary Medication (Nevirapine [Viramune]) 400 mg PO DAILY [facility] Last Admin: 08/16/17 10:50 Dose: Not Given Tamsulosin HCl (Flomax) 0.4 mg PO BID [facility] Last Admin: 08/16/17 10:49 Dose: 0.4 mg Valacyclovir HCl (Valtrex) 500 mg PO HS [facility] PRN Reason: Protocol Last Admin: 08/15/17 22:23 Dose: 500 mg Valsartan (Diovan) 320 mg PO DAILY [facility] Last Admin: 08/16/17 10:49 Dose: 320 mg Results - Vital Signs Recent Vital Signs: Last Vital Signs Temp 99.4 F 08/16/17 17:51 Pulse 108 H 08/16/17 17:51 Resp 20 08/16/17 17:51 BP 152/82 H 08/16/17 17:51 Pulse Ox 95 08/16/17 17:51 - Labs Result Diagrams: 08/16/17 07:30 08/16/17 07:30 Labs: Laboratory Results - last 24 hr 08/16/17 08/16/17 08/16/17 07:30 07:30 07:30 WBC RBC Hgb Hct MCV MCH MCHC RDW Plt Count MPV Sodium 142 Potassium 4.5 Chloride 105 Carbon Dioxide 26 Anion Gap 15 BUN 23 H Creatinine 1.4 Est GFR ( Amer) > 60 Est GFR (Non-Af Amer) 50 Random Glucose 116 H Hemoglobin A1c 5.3 Calcium 9.0 Iron 67 TIBC 283 % Saturation 24 Total Bilirubin 1.5 H AST 40 ALT 44 Alkaline Phosphatase 50 Total Protein 6.6 Albumin 3.4 Globulin 3.2 Albumin/Globulin Ratio 1.1 Triglycerides 95 Cholesterol 135 LDL Cholesterol Direct 89 HDL Cholesterol 33 Vitamin B12 597 Folate > 20.0 TSH 3rd Generation 08/16/17 08/16/17 07:30 07:30 WBC 10.5 RBC 4.09 Hgb 15.1 Hct 42.2 MCV 103.2 MCH 36.9 H MCHC 35.8 RDW 13.3 Plt Count 125 MPV 10.4 Sodium Potassium Chloride Carbon Dioxide Anion Gap BUN Creatinine Est GFR ( Amer) Est GFR (Non-Af Amer) Random Glucose Hemoglobin A1c Calcium Iron TIBC % Saturation Total Bilirubin AST ALT Alkaline Phosphatase Total Protein Albumin Globulin Albumin/Globulin Ratio Triglycerides Cholesterol LDL Cholesterol Direct HDL Cholesterol Vitamin B12 Folate TSH 3rd Generation 2.79 Assessment & Plan - Assessment and Plan (Free Text) Assessment: IMP: R renal colic R urerteral calculus HIV Hepatitis YS - Date & Time Date: 08/16/17 Time: 05:35
--- NOTE | 2017-08-16 19:38 | PCM.SURG1 ---
Surgeon's Initial Post Op Note - Surgeon's Notes Surgeon: Polly Estes Egyptologist: none Type of Anesthesia: General LMA Pre-Operative Diagnosis: R renal colic. R ureteral calculus Operative Findings: same, R hydrouretronephrosis Post-Operative Diagnosis: same Operation Performed: cysto. R rtg pyelogram. Insertion of R ureteral stent Specimen/Specimens Removed: urine Estimated Blood Loss: EBL {In ML}: 0 Blood Products Given: N/A Drains Used: No Drains Post-Op Condition: Good Date of Surgery/Procedure: 08/16/17 Time of Surgery/Procedure: 19:38
[2017-08-16] MEDS ORDERED: HYDROmorphone 0.5 mg/0.5 ml ISec IVP PRN (19:42)
[2017-08-16] MEDS ORDERED: Lactated Ringer's 1,000 ML IV SCH (19:45)
[2017-08-16] MEDS: Fluticasone Nasal 50 mcg/Spray NS SCH (22:52)
--- NOTE | 2017-08-16 23:14 | PN ---
DATE: 08/16/2017 PULMONARY PROGRESS NOTE REFERRING PHYSICIAN: Jazlyn Cordova MD. SUBJECTIVE: He is out of bed to chair. Night was unremarkable. Still has some renal colicky pain, postnasal drip, some cough. No nausea. No vomiting. No leg pain. No leg swelling. OBJECTIVE: GENERAL: In no acute distress. VITAL SIGNS: [place] is 99, heart rate is 108, respiratory rate is 20, blood pressure 152/82, pulse ox of 95% on room air. HEENT: Moist mucous membrane. Crowded airway. Nasal mucosa mildly erythematous. NECK: Supple. No JVD. LUNGS: Have a fair airflow with rhonchi. HEART: S1 and S2. ABDOMEN: Soft, nontender. No organomegaly. Has a right flank tenderness. EXTREMITIES: There is no edema. NEUROLOGIC: Awake and alert. Follows simple command. MEDICATIONS: He is on Diovan 320 mg daily, DuoNeb q. 6 hours, Emtriva 200 mg daily, Flomax 0.4 mg twice a day, hydrochlorothiazide 25 mg daily, morphine 4 mg IV q. 4 hours p.r.n., Viramune 400 mg daily, Pepcid 40 mg at bedtime, IV fluid normal saline 100 mL/hour, Valtrex 500 mg at bedtime. LABORATORY DATA: Shows hemoglobin 15.1, hematocrit 42.2, WBC 10.5, platelet count is 125. Sodium 142, potassium 4.5, chloride 105, bicarbonate 26, BUN 23, creatinine 1.4, glucose 116, hemoglobin A1c 5.3, calcium is 9.0, iron is 67, AST 40, ALT 44, alk phos is 50. Albumin is 3.4. Cholesterol is 135, lipase 91. Vitamin B12 of 597. Folate greater than 20. TSH is 2.79. Has abdominal x-ray done today, which shows no active disease reported. Moderate constipation is there, though. IMPRESSION AND PLAN: Renal stone with hydronephrosis, chronic bronchitis, human immunodeficiency virus positive, hypertension, may have sinusitis. Continue pain management, antibiotics. Urology consult. Possible cystoscopy today. Add Flonase 1 spray each nostril twice a day. Also add Claritin 10 mg daily, Singulair 10 mg daily. Gastric and deep venous thrombosis prophylaxis. Thank you and we will follow with you. Laura Rice MD [facility] # [id number]
[2017-08-17] MEDS: Albuterol-Ipratrop 3 mg / 0.5 (3 ml) UD IH SCH ×4 (05:06→19:47)
[2017-08-17] MEDS: Darunavir/Cobicistat [Prezcobix 800 Mg-150 Mg Tablet] PO SCH (09:19)
[2017-08-17] MEDS: DESCOVY PO SCH (09:20)
[2017-08-17] MEDS: Fluticasone Nasal 50 mcg/Spray NS SCH ×2 (09:29→21:46)
[2017-08-17] MEDS: NEVIRAPINE 400 MG PO SCH (10:25)
[2017-08-17] MEDS: Oxycodone/Acetaminophen 5/325 mg Tab PO PRN ×2 (12:45→18:23)
--- NOTE | 2017-08-17 14:08 | RAD ---
HISTORY: s/p cysto, insertion of R ureteral stent COMPARISON: No prior. FINDINGS: BOWEL: Normal. No obstruction. No free air. BONES: Normal. OTHER FINDINGS: Small stones are seen in the right kidney. There are no stones visualized along the ureteral stent IMPRESSION: As above
--- NOTE | 2017-08-17 14:56 | PCM.FALL ---
Post Fall Progress Note - Post Fall Fall Date: 08/17/17 Fall Time: 13:42 Description of Fall: A 72 year old male, whose past medical history includes kidney stones, hypertension, Hepatitis B, and HIV+, presents to the emergency department complaining of right flank discomfort radiating to right abdomen. Patient was found to have right urerteral calculus. Urology was consulted cysto. Right rtg pyelogram was performed and right ureteral stent was placed as per urology. At 13:42 code star was called. As per nursing staff patient had just received his breathing treatments which made him slightly lightheaded. As a result he lost his balance and fell. Denies trauma to the head. Fall was witnessed by nursing staff. Denies dizziness, back pain, body aches, chest pain, lightheadedness, headaches. - Post Fall Exam Vital Sign: Temp Pulse Resp BP Pulse Ox 98.8 F 98 H 20 156/96 H 97 08/17/17 07:56 08/17/17 07:56 08/17/17 07:56 08/17/17 07:56 08/17/17 07:56 Skull Exam: Negative for: Scalp wound, Scalp hematoma, Scalp depression, Ridge in skull Eye Exam: Positive for: Pupils equal, Pupils reactive Ear Exam: Negative for: Discharge, Bleeding Nose Exam: Negative for: Discharge, Bleeding Skin Exam: Negative for: Lacerations, Grazes, Bruising Mouth Exam: Negative for: Tongue bitten, Teeth dislodge Neck Exam: Negative for: Tenderness, Tingling, Weakness Spinal Exam: Negative for: Tenderness, Tingling, Weakness Chest Exam: Negative for: Difficulty breathing, Tenderness in collar bones, Tenderness in ribs Abdomen Exam: Negative for: Tenderness Pelvic Exam: Negative for: Tenderness, Hematuria Arm Exam: Negative for: Deformity, Alteration in range of movement Leg Exam: Negative for: Deformity, Alteration in range of movement Impression/Plan: No injuries or acute findings during patient encounter.
--- NOTE | 2017-08-17 15:02 | RAD ---
PROCEDURE: Fluoroscopy up to 1 hour HISTORY: RETROGRADE PYELOGRAM / STENT INSERTION (RIGHT) COMPARISON: TECHNIQUE: Fluoroscopy was provided in the operating room. 33.2 seconds fluoro time were used. Ten images were submitted FINDINGS: The study shows placement of a right ureteral stent IMPRESSION: As above
--- NOTE | 2017-08-17 18:17 | CON ---
DATE: 08/16/2017 UROLOGY CONSULTATION Urology consultation is requested by Dr. Jazlyn Cordova. Urology consultation filled by Dr. Genny Estes. REASON FOR CONSULTATION: Right renal colic. HISTORY OF PRESENT ILLNESS: Patient is a 72-year-old male with right flank pain. Patient has had severe and persistent right flank pain. Patient presented to the emergency room. He was found to have an obstructing ureteral calculus. Patient has had persistent pain. He is admitted for evaluation and therapy. Patient lives alone. He is retired. Patient has history of HIV. Patient has history of hepatitis. See old chart. There has been no fever although, the patient felt warm. Temperature this evening is 99.4 orally. Patient reports that he has had persistent pain. PHYSICAL EXAMINATION GENERAL: Patient is a well-developed, well-nourished male, appearing his stated age. Patient is awake and alert. ABDOMEN: Soft, nontender. Mild right-sided abdominal tenderness. Mild right CVA tenderness. GENITALIA: Without inflammation. LABORATORY DATA: Reviewed. The CT scan is reviewed as well. IMPRESSION: A 72-year-old male with right renal colic. Persistent pain. The stone although small in size has caused persistent pain. Patient is explained regarding options of therapy including observation, straining urine and hydration and medications (medical expulsive therapy). Patient is also explained regarding the options of stent insertion and subsequent lithotripsy. The temporary nature of the stent is also explained to the patient as well. PLAN: For cystoscopy and stent insertion. Genny Esets MD cc: Jazlyn Cordova M.D.
--- NOTE | 2017-08-17 18:41 | OP ---
PROCEDURE DATE: 08/16/2017 PREOPERATIVE DIAGNOSES: 1. Right renal colic. 2. Right renal calculus. POSTOPERATIVE DIAGNOSES: 1. Right renal colic. 2. Right renal calculus. 3. Hydronephrosis. 4. Urolithiasis. 5. Benign prostatic hypertrophy. PROCEDURES: 1. Cystoscopy. 2. Right retrograde pyelogram. 3. Insertion of right ureteral stent. 4. Exam under anesthesia. SURGEON: Genny Estes M.D. DESCRIPTION OF PROCEDURE: The procedure was performed under video endoscopic control as well as under fluoroscopic control. The patient was placed in lithotomy position. Genitalia prepped and draped sterilely. Anesthesia was provided by the anesthesiologist. The procedure was performed under video endoscopic control as well as under fluoroscopic control with C-arm. A 22-Yi cystoscope sheath was introduced under direct vision. The urethra, prostate, and bladder were inspected with 30-degree lens. FINDINGS: There was no stricture of the anterior urethra. There was evidence of prostatic hypertrophy, which was occlusive. Prostatic urethra was 3 to 4 cm in length. The bladder was inspected. There was no bladder tumor. There was no bladder stone. There was [id number] bladder trabeculation. The ureteral orifice is normal in position and shape. A 0.035 inch guidewire was inserted into the right ureteral orifice. The guidewire was passed up to the level of the kidney. There was no definite stone seen on the fluoroscopic views. An open ended catheter was inserted over the guidewire. Iodinated contrast then was instilled. There was noted to be [id number] hydronephrosis. A 0.035 inch guidewire was reinserted. A 6-Yi Multilink stent was inserted over the guidewire. Proper stent position was confirmed by fluoroscopy and endoscopy. The guidewire was removed. The stent was left in place. The bladder was reinspected and confirmed the above findings. The bladder was then drained. Cystoscope and sheath were removed. Rectal examination and exam under anesthesia was performed. There was no abnormal pelvic mass fixation or induration. Prostate was supple and smooth approximately 25 to 30 g in size, without fixation, induration or nodularity. The patient tolerated the procedure without complication. Genny MD Meera cc: Jazlyn Cordova M.D. [facility] # [id number]
--- NOTE | 2017-08-17 21:44 | CON ---
DATE: 08/17/2017 NEUROLOGY CONSULT CHIEF COMPLAINT: Dizziness. HISTORY OF PRESENT ILLNESS: This is a 72-year-old man with past medical history of kidney stones, hypertension, hepatitis B, and HIV positive, presented to the hospital for right flank pain, discomfort radiating to the right abdomen, found to have a right ureteral calculus. Urology was consulted for cystoscopy. A right pyelogram was performed and right ureteral stent was placed by Urology. He had a code because the patient received breathing treatments, which made him slightly lightheaded and lost his balance and fell but did not lose consciousness, did not have spinning sensation of the room. Denied any trauma to the head. Currently, his blood pressure is stable. He is doing much better. No further dizziness. No further acute events. PAST MEDICAL HISTORY: As above. SOCIAL HISTORY: No illicit drug use, smoking, or EtOH abuse at this time. ALLERGIES: PENICILLIN. MEDICATIONS: Reviewed by nurse's reconciliation sheet. FAMILY HISTORY: Noncontributory. PHYSICAL EXAMINATION: VITAL SIGNS: Temperature 98.8, pulse rate 98, blood pressure 156 , and oxygen saturation by room air. Orthostatic changes are negative. GENERAL: The patient is sitting up in bed, in no acute distress. HEENT: Head is atraumatic, normocephalic. PERRLA. Extraocular muscles intact. NECK: Supple. No JVD. No adenopathy noted. LUNGS: Clear to auscultation. No adventitious sounds. HEART: S1 and S2. Normal rate and rhythm. No murmurs, rubs, or gallops. ABDOMEN: Soft, nontender, nondistended. Bowel sounds present. EXTREMITIES: No clubbing. No cyanosis. Peripheral pulses 2+ felt bilaterally. NEUROLOGIC: The patient is alert and oriented to person, place, month, and year. Speech is fluent without any errors. Cranial nerves II through XII intact. Motor: Moves all extremities equally. Toes are downgoing bilaterally. Sensory: Decreased light touch and pinprick up to the calves bilaterally. Decreased vibration at the toes. DTRs are 2+ throughout, 1 at both ankles and knees. Coordination: [id number]-ov-owyb intact. Gait is deferred for now. LABORATORY DATA: A1c 5.3. ASSESSMENT AND PLAN: This is a 72-year-old man with past medical history of kidney stones, hypertension, hepatitis B, human immunodeficiency virus positive, presented to the ER with complaining of right flank pain radiating to the right abdomen, found to have a right ureteral calculus, status post intervention. He was getting breathing treatments today after which he felt lightheaded and just lost his balance and fell but did not lose consciousness, did not have any spinning sensation of the room, or change in sense, vision, taste, or smell. He is currently asymptomatic. He is doing much better. He is moving all extremities, able to walk without any difficulty. At this time, he had a transient dizzy state from likely breathing treatment superimposed underlying mild vasovagal component. At this time, he is clinically stable. We will monitor him overnight and can be discharged home tomorrow. Thank you for this consult. Eldon Sultana MD
[2017-08-17] MEDS: Sodium Chloride 0.9% 1,000 ML IV SCH (21:53)
[2017-08-18] MEDS: Oxycodone/Acetaminophen 5/325 mg Tab PO PRN (00:06)
--- NOTE | 2017-08-18 00:33 | PN ---
DATE: 08/17/2017 PULMONARY PROGRESS NOTE REFERRING PHYSICIAN: Dr. oCrdova. SUBJECTIVE: He is lying in the bed, head at 45 degrees, status post cystoscopy and placement of the ureteral stent. This morning when he got up, he was a little dizzy, had a near syncope episode. Presently awake, alert, follows simple commands. Cough is still there, but improved. No leg pain or leg swelling. OBJECTIVE: GENERAL: No acute distress. VITAL SIGNS: Temp is 98, heart rate is 78, respiratory rate is 20, blood pressure is 156/96. HEENT: Moist mucous membrane. No ulcer or thrush noted. NECK: Supple. No JVD. LUNGS: Have a few scattered rhonchi. HEART: S1 and S2. ABDOMEN: Soft, nontender. No organomegaly. EXTREMITIES: No edema. NEUROLOGIC: Awake, alert. Follows simple command. MEDICATIONS: He is on Claritin 10 mg daily, on antiviral medication, Diovan 320 mg daily, DuoNeb q. 6 hours, Flomax 0.4 mg twice a day, Flonase 1 spray each nostril twice a day, hydrochlorothiazide 25 mg daily, Viramune 400 mg daily, Pepcid 40 mg daily, Percocet 5/325 one tablet q. 4 hours p.r.n., Singulair 10 mg daily, IV fluid normal saline 100 mL/hour, Valtrex 500 mg at bedtime, Zofran p.r.n. basis. LABORATORY DATA: Reviewed. No new lab is available since yesterday. IMPRESSION AND PLAN: Renal stone with hydronephrosis, chronic bronchitis, human immunodeficiency virus positive, hypertension, may have sinusitis. Need to rule out sleep apnea syndrome, status post cystoscopy and ureteral stent placement. Presently, hemodynamically stable. Pulmonary status stable. Continue antihistamine, nasal steroids, Singulair. Gastric prophylaxis. Antibiotics as per Infectious Disease. We will recommend pulmonary function tests and sleep study upon discharge as outpatient. Thank you and we will follow with you. Laura Rice MD
[2017-08-18] MEDS: Albuterol-Ipratrop 3 mg / 0.5 (3 ml) UD IH SCH ×4 (01:16→13:33)
[2017-08-18] MEDS: Sodium Chloride 0.9% 1,000 ML IV SCH (03:02)
--- NOTE | 2017-08-18 08:11 | PN ---
DATE: 08/16/2017 SUBJECTIVE: The patient is a 72-year-old male. Patient was seen and examined on 08/16/2017 on the bedside, looking comfortable. No nausea, vomiting, or diarrhea. Night was unremarkable, still having renal colic pain, but getting better. Coughing and itchiness in the throat. No fever, no chills. No headache, no dizziness. PHYSICAL EXAMINATION: VITAL SIGNS: Temperature 99, heart rate 108, respiratory rate 20, blood pressure 150/82, pulse oxymetry 95% on room air. HEENT: Head: Normocephalic, atraumatic. Eyes: PERRLA. Extraocular muscles intact. Conjunctivae clear. Nose patent. Mucous membranes moist. NECK: Supple. No carotid bruits. No JVD or thyromegaly. CHEST: Bilaterally symmetrical. HEART: S1 and S2 positive. LUNGS: B/L rhonchi. ABDOMEN: Soft, nontender. No organomegaly. Has right flank tenderness. EXTREMITIES: No edema, no cyanosis. NEUROLOGICAL: Patient is awake and alert. Follows simple commands. MEDICATIONS: Diovan, DuoNeb, Flomax, hydrochlorothiazide, morphine, Viramune, Pepcid, NS, Valtrex. LABORATORY DATA: Hemoglobin 15.1, hematocrit 42.2, white blood cell 10.5. Sodium 142, potassium 4.5, BUN NOTED , creatinine 1.4. Hemoglobin A1c 5.3. AST 40, ALT 44, cholesterol 135. ASSESSMENT AND PLAN: a 72-year-old male with multiple medical problems. He has a positive renal stone with hydronephrosis, chronic bronchitis, human immunodeficiency virus syndrome positive, hypertension, sinusitis, postnasal drip, nephrolithiasis. Patient went for cystoscopy. Thus, we added Flonase, added Claritin, and Singulair . Gastric and deep vein thrombosis prophylaxis. We will follow up with urologist. Gastrointestinal and deep vein thrombosis prophylaxis. Repeat labs. Jazlyn Cordova MD [facility]
--- NOTE | 2017-08-18 08:45 | PN ---
DATE: 08/17/2017 SUBJECTIVE: Patient is a 72-year-old male. Patient was seen and examined at the bedside late evening, looking comfortable. No nausea, vomiting, or diarrhea. Headache is better. No chest pain. No palpitation. Daytime event noted. Patient today took treatment with nebulizer breathing treatment, which made him slightly lightheaded and he lost his balance and fell over but did not lose consciousness, did not hit his head, but was having feeling of spinning sensation. Denied trauma to the head. His vitals were stable. Plan was to discharge the patient today, but after this episode, we kept him under observation for 24 hours. No more dizziness. No further acute event noted. Patient today went for cystoscopy by Dr. Kam Estes. No headache, no dizziness, no fever, no chills. No hematuria or hematochezia. No swelling of the legs. PHYSICAL EXAMINATION: VITAL SIGNS: Temperature 98.8, pulse 98, blood pressure 156/80, respiratory rate 18. HEENT: Head: Normocephalic, atraumatic. Eyes: PERRLA. Extraocular muscles intact. Conjunctivae clear. Nose patent. Mucous membranes moist. NECK: Supple. No carotid bruit. No JVD or thyromegaly. CHEST: Bilaterally symmetrical. HEART: S1 and S2 positive. LUNGS: Clear to auscultation. ABDOMEN: Soft. Bowel sounds present. No organomegaly. EXTREMITIES: No edema. No cyanosis. NEUROLOGICAL: The patient is awake and alert. Moving all 4 extremities. No focal deficits. MEDICATIONS: Claritin, Prezcobix, Diovan, DuoNeb, Flomax, hydrochlorothiazide, Pepcid, Percocet, Singulair, MS, Valtrex, Zofran. LABORATORY DATA: White blood cells 10.5, hemoglobin 15.1, hematocrit 42.2, platelets 125. Sodium 142, potassium 4.5, BUN 23, creatinine 1.4, glucose 116, hemoglobin A1c is 5.3. ASSESSMENT AND PLAN: Mr. Andreas Jones is a 72-year-old male with increased BUN, hyperglycemia, abnormal liver function test, hematuria. Patient has a history of kidney stones, hypertension, hepatitis B, HIV positive, came with right flank pain and discomfort radiating to the right abdomen, found to have a right ureteral calculus. Urology was consulted. Patient went for cystoscopy today. Plan was to discharge home, then after nebulizer treatment, patient became slightly lightheaded and almost fell, no loss of consciousness. Patient does not have spinning sensation of the room or change in the sense, vision, taste, or smell. He is currently asymptomatic. When I saw the patient in the evening, he is moving all four extremities without difficulty. We will call it transient ischemic attack or continue followup. Observe him further. Gastric and deep venous thrombosis prophylaxis. Repeat labs. We will follow up. Jazlyn Cordova MD MTDD
[2017-08-18 09:15] VITALS: BP 119/65; PULSE 78; RESP 20; TEMP 98; O2SAT 97
[2017-08-18] MEDS: Fluticasone Nasal 50 mcg/Spray NS SCH (10:41)
[2017-08-18] MEDS: DESCOVY PO SCH (10:42)
[2017-08-18] MEDS: Darunavir/Cobicistat [Prezcobix 800 Mg-150 Mg Tablet] PO SCH (10:42)
[2017-08-18] MEDS: NEVIRAPINE 400 MG PO SCH (10:43)
--- NOTE | 2017-08-18 17:27 | CP.PCM.DIS ---
<Yuliana Saleem - Last Filed: 08/18/17 17:27> Provider - Provider Date of Admission: 08/15/17 20:42 Attending physician: Jazlyn Cordova MD Primary care physician: NO PRIMARY CARE PROVIDER Consults: Pulmo - Dr. Rice Neuro - Dr. [place]at[place] Urology - Dr. Estes Time Spent in preparation of Discharge (in minutes): 40 Hospital Course - Lab Results Lab Results: Most Recent Lab Values WBC 10.5 10^3/ul (4.5-11.0) 08/16/17 07:30 RBC 4.09 10^6/uL (3.5-6.1) 08/16/17 07:30 Hgb 15.1 g/dL (14.0-18.0) 08/16/17 07:30 Hct 42.2 % (42.0-52.0) 08/16/17 07:30 MCV 103.2 fl (80.0-105.0) 08/16/17 07:30 MCH 36.9 pg (25.0-35.0) H 08/16/17 07:30 MCHC 35.8 g/dl (31.0-37.0) 08/16/17 07:30 RDW 13.3 % (11.5-14.5) 08/16/17 07:30 Plt Count 125 10^3/uL (120.0-450.0) 08/16/17 07:30 MPV 10.4 fl (7.0-11.0) 08/16/17 07:30 Sodium 142 mmol/L (132-148) 08/16/17 07:30 Potassium 4.5 mmol/L (3.6-5.0) 08/16/17 07:30 Chloride 105 mmol/L (98-107) 08/16/17 07:30 Carbon Dioxide 26 mmol/L (21-33) 08/16/17 07:30 Anion Gap 15 (10-20) 08/16/17 07:30 BUN 23 mg/dL (7-21) H 08/16/17 07:30 Creatinine 1.4 mg/dl (0.8-1.5) 08/16/17 07:30 Est GFR ( Amer) > 60 08/16/17 07:30 Est GFR (Non-Af Amer) 50 08/16/17 07:30 Random Glucose 116 mg/dL (70-110) H 08/16/17 07:30 Hemoglobin A1c 5.3 % (4.2-6.5) 08/16/17 07:30 Calcium 9.0 mg/dL (8.4-10.5) 08/16/17 07:30 Iron 67 ug/dL (45-180) 08/16/17 07:30 TIBC 283 ug/dL (261-462) 08/16/17 07:30 % Saturation 24 % (20-55) 08/16/17 07:30 Total Bilirubin 1.5 mg/dL (0.2-1.3) H 08/16/17 07:30 AST 40 U/L (17-59) 08/16/17 07:30 ALT 44 U/L (7-56) 08/16/17 07:30 Alkaline Phosphatase 50 U/L (38-126) 08/16/17 07:30 Total Protein 6.6 g/dL (5.8-8.3) 08/16/17 07:30 Albumin 3.4 g/dL (3.0-4.8) 08/16/17 07:30 Globulin 3.2 gm/dL 08/16/17 07:30 Albumin/Globulin Ratio 1.1 (1.1-1.8) 08/16/17 07:30 Triglycerides 95 mg/dL (35-160) 08/16/17 07:30 Cholesterol 135 mg/dL (130-200) 08/16/17 07:30 LDL Cholesterol Direct 89 mg/dL (0-129) 08/16/17 07:30 HDL Cholesterol 33 mg/dL (29-60) 08/16/17 07:30 Lipase 91 U/L (23-300) 08/14/17 21:55 Vitamin B12 597 pg/mL (239-931) 08/16/17 07:30 Folate > 20.0 ng/mL 08/16/17 07:30 TSH 3rd Generation 2.79 mIU/mL (0.46-4.68) 08/16/17 07:30 Urine Color Yellow (YELLOW) 08/15/17 01:45 Urine Appearance Clear (CLEAR) 08/15/17 01:45 Urine pH 6.0 (4.7-8.0) 08/15/17 01:45 Ur Specific [place] 1.015 (1.005-1.035) 08/15/17 01:45 Urine Protein Negative mg/dL (<30 mg/dL) 08/15/17 01:45 Urine Glucose (UA) Negative mg/dL (NEGATIVE) 08/15/17 01:45 Urine Ketones Negative mg/dL (NEGATIVE) 08/15/17 01:45 Urine Blood Moderate (NEGATIVE) H 08/15/17 01:45 Urine Nitrate Negative (NEGATIVE) 08/15/17 01:45 Urine Bilirubin Negative (NEGATIVE) 08/15/17 01:45 Urine Urobilinogen 0.2 E.U./dL (<1 E.U./dL) 08/15/17 01:45 Ur Leukocyte Esterase Negative [place]/uL (NEGATIVE) 08/15/17 01:45 Urine RBC 1 - 3 /hpf (0-2) 08/15/17 01:45 Urine WBC 0 - 2 /hpf (0-6) 08/15/17 01:45 Ur Epithelial Cells 0 - 2 /hpf (0-5) 08/15/17 01:45 - Hospital Course Hospital Course: 72 yr male w/ history of kidney stones, HTN, Hepatitis B, and HIV+. Patient admitted for renal colic on R side. Patient was found to have a R ureteral calculus w/ mild hydronephrosis and bilateral nephrolithsis. On R ureteral stent implanted by Dr. Estes. Pt is cleared for discharge with follow up with urologist and with follow up in our office in 2 days. - Date & Time of H&P Date of H&P: 08/18/17 Time of H&P: 10:45 Discharge Plan - Discharge Medications Prescriptions: Doxycycline Monohydrate 100 mg PO Q12H 7 Days #14 tablet Fluticasone Nasal [Flonase] 1 actuation NS Q12 30 Days spr Loratadine [Claritin] 10 mg PO DAILY 30 Days tab Montelukast [Singulair] 10 mg PO HS #30 tab oxyCODONE/Acetaminophen [Percocet 5/325 mg Tab] 1 ea PO Q4H #20 tab Tamsulosin [Flomax] 0.4 mg PO DAILY 30 Days cap - Follow Up Plan Condition: STABLE Disposition: HOME/ ROUTINE Instructions: Renal Colic (DC), Acute Pain, Adult (DC), Renal Colic (DC), Renal Colic (GEN), Syncope (DC), Syncope (GEN), Human Immunodeficiency Virus and Acquired Immune Deficiency Syndrome (DC), Human Immunodeficiency Virus and Acquired Immune Deficiency Syndrome (GEN) Additional Instructions: You are being discharged to home. Please follow up with Dr. Estes in his office in the next couple of days. Please follow up with Dr. Cordova in her office. You will need to call both physicians to set up appointments with them. You are leaving with prescriptions. Please take them according to the instructions on the bottle. Please keep any and all medications out of the reach of children, teens, and strangers, especially pain medication. Thank you. Referrals: Jazlyn Cordova MD [Staff Provider] - Kam Estes MD [Staff Provider] - <Jazlyn Cordova - Last Filed: 08/19/17 09:44> Provider - Provider Date of Admission: 08/15/17 20:42 Attending physician: Jazlyn Cordova MD Primary care physician: NO PRIMARY CARE PROVIDER Hospital Course - Lab Results Lab Results: Micro Results 08/17/17 10:15 Urine Urine Culture - Final No Growth (<1,000 CFU/ML) Most Recent Lab Values WBC 10.5 10^3/ul (4.5-11.0) 08/16/17 07:30 RBC 4.09 10^6/uL (3.5-6.1) 08/16/17 07:30 Hgb 15.1 g/dL (14.0-18.0) 08/16/17 07:30 Hct 42.2 % (42.0-52.0) 08/16/17 07:30 MCV 103.2 fl (80.0-105.0) 08/16/17 07:30 MCH 36.9 pg (25.0-35.0) H 08/16/17 07:30 MCHC 35.8 g/dl (31.0-37.0) 08/16/17 07:30 RDW 13.3 % (11.5-14.5) 08/16/17 07:30 Plt Count 125 10^3/uL (120.0-450.0) 08/16/17 07:30 MPV 10.4 fl (7.0-11.0) 08/16/17 07:30 Sodium 142 mmol/L (132-148) 08/16/17 07:30 Potassium 4.5 mmol/L (3.6-5.0) 08/16/17 07:30 Chloride 105 mmol/L (98-107) 08/16/17 07:30 Carbon Dioxide 26 mmol/L (21-33) 08/16/17 07:30 Anion Gap 15 (10-20) 08/16/17 07:30 BUN 23 mg/dL (7-21) H 08/16/17 07:30 Creatinine 1.4 mg/dl (0.8-1.5) 08/16/17 07:30 Est GFR ( Amer) > 60 08/16/17 07:30 Est GFR (Non-Af Amer) 50 08/16/17 07:30 Random Glucose 116 mg/dL (70-110) H 08/16/17 07:30 Hemoglobin A1c 5.3 % (4.2-6.5) 08/16/17 07:30 Calcium 9.0 mg/dL (8.4-10.5) 08/16/17 07:30 Iron 67 ug/dL (45-180) 08/16/17 07:30 TIBC 283 ug/dL (261-462) 08/16/17 07:30 % Saturation 24 % (20-55) 08/16/17 07:30 Total Bilirubin 1.5 mg/dL (0.2-1.3) H 08/16/17 07:30 AST 40 U/L (17-59) 08/16/17 07:30 ALT 44 U/L (7-56) 08/16/17 07:30 Alkaline Phosphatase 50 U/L (38-126) 08/16/17 07:30 Total Protein 6.6 g/dL (5.8-8.3) 08/16/17 07:30 Albumin 3.4 g/dL (3.0-4.8) 08/16/17 07:30 Globulin 3.2 gm/dL 08/16/17 07:30 Albumin/Globulin Ratio 1.1 (1.1-1.8) 08/16/17 07:30 Triglycerides 95 mg/dL (35-160) 08/16/17 07:30 Cholesterol 135 mg/dL (130-200) 08/16/17 07:30 LDL Cholesterol Direct 89 mg/dL (0-129) 08/16/17 07:30 HDL Cholesterol 33 mg/dL (29-60) 08/16/17 07:30 Lipase 91 U/L (23-300) 08/14/17 21:55 Vitamin B12 597 pg/mL (239-931) 08/16/17 07:30 Folate > 20.0 ng/mL 08/16/17 07:30 TSH 3rd Generation 2.79 mIU/mL (0.46-4.68) 08/16/17 07:30 Urine Color Yellow (YELLOW) 08/15/17 01:45 Urine Appearance Clear (CLEAR) 08/15/17 01:45 Urine pH 6.0 (4.7-8.0) 08/15/17 01:45 Ur Specific [place] 1.015 (1.005-1.035) 08/15/17 01:45 Urine Protein Negative mg/dL (<30 mg/dL) 08/15/17 01:45 Urine Glucose (UA) Negative mg/dL (NEGATIVE) 08/15/17 01:45 Urine Ketones Negative mg/dL (NEGATIVE) 08/15/17 01:45 Urine Blood Moderate (NEGATIVE) H 08/15/17 01:45 Urine Nitrate Negative (NEGATIVE) 08/15/17 01:45 Urine Bilirubin Negative (NEGATIVE) 08/15/17 01:45 Urine Urobilinogen 0.2 E.U./dL (<1 E.U./dL) 08/15/17 01:45 Ur Leukocyte Esterase Negative [place]/uL (NEGATIVE) 08/15/17 01:45 Urine RBC 1 - 3 /hpf (0-2) 08/15/17 01:45 Urine WBC 0 - 2 /hpf (0-6) 08/15/17 01:45 Ur Epithelial Cells 0 - 2 /hpf (0-5) 08/15/17 01:45 - Hospital Course Hospital Course: pt is seen and examined at bed side , looking comfortable , agreed all above , chart , labs . and meds noted , d/d with pt [employer] . and staff will f/u happy to go home , willf.u with pcp . my office and uro
--- NOTE | 2017-08-18 18:18 | PN ---
DATE: 08/18/2017 PULMONARY PROGRESS NOTE REFERRING PHYSICIAN: Jazlyn Cordova M.D. SUBJECTIVE: He is out of bed to chair, feels okay, ambulating in the room. No headache, no rhinitis, no nausea, no vomiting, no diarrhea. No leg pain or leg swelling. OBJECTIVE GENERAL: In no acute distress. VITAL SIGNS: Temperature is 98, heart rate is 78, respiratory rate is 18, blood pressure 119/65, pulse ox is 97% on room air. HEENT: Moist mucous membrane. Crowded airway. NECK: Supple. No JVD. LUNGS: Have a fair airflow with few rhonchi.. HEART: S1 and S2. ABDOMEN: Soft, nontender. No organomegaly. EXTREMITIES: No edema. NEUROLOGIC: Awake, alert. Follows simple command. MEDICATIONS: Reviewed and noting no new change in medications reported since yesterday. LABORATORY DATA: Reviewed and noted no new lab since yesterday. IMPRESSION AND PLAN: Renal stone with hydronephrosis, chronic bronchitis, human immunodeficiency virus positive, hypertension, history of sinusitis, sleep apnea syndrome, status post cystoscopy with stent placement, has a near syncope episode, seen by Neurology, being discharged home. Pulmonary point of view, doing well. Outpatient pulmonary function test. Also need attended sleep study. Urology followup. Followup kidney function as outpatient. Thank you and we will follow with you. Laura Rice MD
== END 2017-08-18 14:57 | disposition home or self-care (01) | DRG 694 ==
LOC: ED 21:00 → ERH 08-15 00:42 → 5RSO 08-15 02:09 → OBSVTOIN 08-15 20:42
PROVIDERS: ADMIT Internal Medicine; ATTEND Internal Medicine
PROC: BT1D1ZZ Fluoroscopy of Right Kidney, Ureter and Bladder using Low Osmolar Contrast (ICD-10-PCS; 2017-08-16)
PROC: 0T768DZ Dilation of Right Ureter with Intraluminal Device, Via Natural or Artificial Opening Endoscopic (ICD-10-PCS; principal; 2017-08-16 19:00)
DX: N13.2 Hydronephrosis with renal and ureteral calculous obstruction (principal); B19.10 Unspecified viral hepatitis B without hepatic coma; N40.0 Benign prostatic hyperplasia without lower urinary tract symptoms; Z21 Asymptomatic human immunodeficiency virus [HIV] infection status; N32.89 Other specified disorders of bladder; I10 Essential (primary) hypertension; R73.9 Hyperglycemia, unspecified; J42 Unspecified chronic bronchitis; J32.9 Chronic sinusitis, unspecified; R09.82 Postnasal drip; R42 Dizziness and giddiness; Z88.0 Allergy status to penicillin

== ENCOUNTER 2017-08-20 20:19 | Emergency (ER) | payer MEDICARE, BC ==
[2017-08-20 20:33] VITALS: BP 177/90; PULSE 109; RESP 16; TEMP 98; O2SAT 97; BMI 28.8
[2017-08-20] MEDS ORDERED: Tmp-Smz 800 mg-160 mg DS Tab PO ONE (21:02)
--- NOTE | 2017-08-20 21:05 | ED PDOC ---
Arrival/HPI - General Chief Complaint: Upper Extremity Problem/Injury Time Seen by Provider: 08/20/17 20:53 Historian: Patient - History of Present Illness Narrative History of Present Illness (Text): 08/20/17 21:00 Andreas Jones is a 72 year old male, whose past medical history includes HIV, Hepatitis B, and hypertension, who presents to the Emergency department complaining of left forearm redness with associated discomfort today. Patient had an IV previously prior to discharge from hospital on 08/18/17. Patient denies any fever, chills, weakness/numbness/tingling in the extremity, decreased range of motion, chest pain, vomiting, diarrhea, headache, dizziness, or any other complaints. Time/Duration: Other (today) Symptom Onset: Gradual Symptom Course: Unchanged Activities at Onset: Light Context: Home Past Medical History - Provider Review Nursing Documentation Reviewed: Yes - Infectious Disease Hx of Infectious Diseases: None - Cardiac Hx Hypertension: Yes - Pulmonary Hx Respiratory Disorders: No Hx Asthma: No Hx Bronchitis: No Hx Chronic Obstructive Pulmonary Disease (COPD): No Hx Emphysema: No Hx Pneumonia: No Hx Respiratory Aspiration: No Hx Respiratory Tract Infection: No Hx Sleep Apnea: No Hx Tuberculosis: No Other/Comment: Pt has history of HIV - Neurological Hx Neurological Disorder: No Hx Alzheimer's Disease: No HX Cerebrovascular Accident: No Hx Dementia: No Hx Dizziness: No Hx Meningitis: No Hx Migraine: No Hx Parkinson's Disease: No Hx Seizures: No Hx Transient Ischemic Attacks (TIA): No - HEENT Hx HEENT Disorder: No Hx Blind: No Hx Cataracts: No Hx Deafness: No Hx Difficulty Chewing: No Hx Epistaxis: No Hx Glaucoma: No Hx Macular Degeneration: No - Renal Hx Kidney Stones: Yes - Endocrine/Metabolic Hx Endocrine Disorders: No Hx Adrenal Cancer: No Hx Diabetes Insipidus: No Hx Diabetes Mellitus Type 1: No Hx Diabetes Mellitus Type 2: No Hx Hyperthyroidism: No Hx Hypothyroidism: No Hx Systemic Lupus Erythematosus: No - Hematological/Oncological Hx Blood Transfusions: No Hx Blood Transfusion Reaction: No - Integumentary Hx Dermatological Disorder: Yes Hx Basal Cell Carcinoma: No Hx Eczema: No Hx Melanoma: No Hx Psoriasis: No Hx Squamous Cell Carcinoma: No Other/Comment: shingles in the eye, - Musculoskeletal/Rheumatological Hx Falls: Yes - Gastrointestinal Hx Gastrointestinal Disorders: No Hx Colostomy: No Hx Crohn's Disease: No Hx Diverticulitis: No Hx Gall Bladder Disease: No Hx Gastroesophageal Reflux: No Hx Ileostomy: No Hx Liver Failure: No Hx Pancreatitis: No HX Swallowing Problems: No - Genitourinary/Gynecological Hx Genitourinary Disorders: No Hx Hematuria: No Hx Incontinence: No Hx Prostate Problems: No Hx Sexually Transmitted Diseases: No Hx Urinary Tract Infection: No - Psychiatric Hx Psychophysiologic Disorder: No Hx Anxiety: No Hx Bipolar Disorder: No Hx Depression: No Hx Emotional Abuse: No Hx Hallucinations: No Hx Panic Disorder: No Hx Post Traumatic Stress Disorder: No Hx Psychosis: No Hx Physical Abuse: No Hx Schizophrenia: No Hx Sexual Abuse: No Hx Substance Use: No - Surgical History Hx Amputation: No Hx Appendectomy: No Hx Cardiac Catheterization: No Hx Cholecystectomy: No Hx Coronary Stent: No Hx Gastric Bypass Surgery: No Hx Hysterectomy: No Hx Joint Replacement: No Hx Kidney Transplant: No Hx Liver Transplant: No Hx Mastectomy: No Hx Musculoskeletal Surgery: No Hx Open Heart Surgery: No Hx Orthopedic Surgery: No Hx Splenectomy: No Hx Valve Replacement: No - Anesthesia Hx Anesthesia Reactions: No Hx Malignant Hyperthermia: No Family/Social History - Physician Review Nursing Documentation Reviewed: Yes Family/Social History: Unknown Family HX Smoking Status: Never Smoked Hx Alcohol Use: No Hx Substance Use: No Allergies/Home Meds Allergies/Adverse Reactions: Allergies Penicillins Allergy (Intermediate, Verified 07/11/17 16:29) RASH Home Medications: Home Meds Medication Instructions Recorded Confirmed Darunavir/Cobicistat [Prezcobix 1 tab PO DAILY 08/05/16 08/20/17 800 mg-150 mg Tablet] Nevirapine [Viramune] 400 mg PO DAILY 08/06/16 08/20/17 Valsartan/Hydrochlorothiazide 1 tab PO DAILY 08/06/16 08/20/17 [Diovan Hct 320-25 mg Tablet] Valacyclovir HCl [Valacyclovir] 500 mg PO HS 08/14/17 08/20/17 Emtricitabine [Emtriva] 200 mg PO DAILY 08/15/17 08/20/17 Review of Systems - Physician Review All systems were reviewed & negative as marked: Yes - Review of Systems Constitutional: Normal. absent: Fevers Eyes: Normal ENT: Normal Respiratory: Normal. absent: SOB, Cough Cardiovascular: Normal. absent: Chest Pain Gastrointestinal: Normal. absent: Abdominal Pain, Diarrhea, Nausea, Vomiting Genitourinary Male: Normal. absent: Dysuria, Frequency, Hematuria, Urinary Output Changes Musculoskeletal: Normal. absent: Back Pain, Neck Pain Skin: Other (+left forearm redness) Neurological: Normal. absent: Headache, Dizziness Endocrine: Normal Hemo/Lymphatic: Normal Psychiatric: Normal Physical Exam Vital Signs Reviewed: Yes Vital Signs Temp Pulse Resp BP Pulse Ox 08/20/17 20:31 98.0 F 109 H 16 177/90 H 97 Temperature: Afebrile Blood Pressure: Hypertensive Pulse: Regular Respiratory Rate: Normal Appearance: Positive for: Well-Appearing, Non-Toxic, Comfortable Pain Distress: None Mental Status: Positive for: Alert and Oriented X 3 - Systems Exam Head: Present: Atraumatic, Normocephalic Pupils: Present: PERRL Extroacular Muscles: Present: EOMI Conjunctiva: Present: Normal Mouth: Present: Moist Mucous Membranes Respiratory/Chest: Present: Clear to Auscultation, Good Air Exchange. No: Respiratory Distress, Accessory Muscle Use Cardiovascular: Present: Regular Rate and Rhythm, Normal S1, S2. No: Murmurs Upper Extremity: Present: Normal ROM, NORMAL PULSES, Erythema (Superficial phlebitis of left forearm), Neurovascularly Intact, Capillary Refill < 2s. No: Cyanosis, Edema, Deformity Neurological: Present: GCS=15, CN II-XII Intact, Speech Normal Skin: Present: Warm, Dry, Normal Color. No: Rashes Psychiatric: Present: Alert, Oriented x 3, Normal Insight, Normal Concentration Medical Decision Making ED Course and Treatment: 08/20/17 21:00 Impression: 72 year old male complaining of left forearm redness/discomfort. Differential Diagnosis included but are not limited to: phlebitis Plan: -- Bactrim -- Reassess and disposition Prior Visits: Notes and results from previous visits were reviewed. Patient was last seen in the emergency department on On 08/14/2017, pt was seen in the Emergency department for right flank pain radiating to abdomen. Pt was admitted to the hospital for further evaluation. Pt had a right ureteral stent placed and was discharged home on 08/18/2017. Progress Notes: 08/20/17 21:25 Patient is well-appearing, in no acute distress. I have discussed the results and plan with the patient, who expresses understanding. Patient in agreement with plan to discharge the patient home with prescription for Bactrim. Patient is stable for discharge. Patient was instructed to follow up with physician/ clinic in 1-2 days or return if symptoms persist. - Medication Orders Current Medication Orders: Discontinued Medications Trimethoprim/Sulfamethoxazole (Bactrim Ds Tab) 1 tab PO ONCE ONE PRN Reason: Protocol Stop: 08/20/17 21:03 Last Admin: 08/20/17 21:19 Dose: 1 tab - Scribe Statement The provider has reviewed the documentation as recorded by the Scribjuan Huber All medical record entries made by the Scribe were at my direction and personally dictated by me. I have reviewed the chart and agree that the record accurately reflects my personal performance of the history, physical exam, medical decision making, and the department course for this patient. I have also personally directed, reviewed, and agree with the discharge instructions and disposition. Disposition/Present on Arrival - Present on Arrival Any Indicators Present on Arrival: No History of DVT/PE: No History of Uncontrolled Diabetes: No Urinary Catheter: No History of Decub. Ulcer: No History Surgical Site Infection Following: None - Disposition Have Diagnosis and Disposition been Completed?: Yes Diagnosis: Superficial phlebitis of arm Disposition: HOME/ ROUTINE Disposition Time: 21:25 Condition: GOOD Discharge Instructions (ExitCare): Superficial Phlebitis Prescriptions: Sulfamethoxazole/Trimethoprim [Bactrim DS 800 mg-160 mg] 1 tab PO BID #14 tab Referrals: Nidla Gardner, [Primary Care Provider] - Follow up with primary Forms: [facility] (Burmese)
== END 2017-08-20 21:25 | disposition home or self-care (01) ==
LOC: ED 20:19
DX: I80.8 Phlebitis and thrombophlebitis of other sites (principal)

== ENCOUNTER 2018-05-16 08:53 | Inpatient (IN) | payer MEDICARE, BC ==
[2018-05-16 09:41] VITALS: BMI 33.4
[2018-05-16] MEDS ORDERED: Sodium Chloride 0.9% 1,000 ML IV STA (09:43)
[2018-05-16 10:05] LABS: ALB/GLOB RATIO 1.2 (1.1-1.8); ALBUMIN 4.4 g/dL (3.0-4.8); ALT/SGPT 53 U/L (7-56); AST/SGOT 56 U/L (17-59); BLOOD UREA NITROGEN 33 mg/dL (7-21); CALCIUM 9.5 mg/dL (8.4-10.5); GFR NON-AFRICAN AMERICAN 43
[2018-05-16 10:09] LABS: BASO # 0.02 K/mm3 (0.0-2.0); BASO % 0.2 % (0.0-3.0); EOS # 0.1 (0.0-0.7); EOS % 0.6 % (1.5-5.0); GRAN # 11.18 (1.4-6.5); GRAN % 88.2 % (50.0-68.0); LYMPH # 0.5 (1.2-3.4); LYMPH % 3.8 % (22.0-35.0); MEAN CELL VOLUME 102.4 fl (80.0-105.0); MEAN CORPUSCULAR HGB CONC 36.1 g/dl (31.0-37.0); MEAN PLATELET VOLUME 11.1 fl (7.0-11.0); MONO # 0.9 (0.1-0.6); MONO % 7.2 % (1.0-6.0); PLATELET COUNT 168 10^3/uL (120.0-450.0); RBC 4.95 10^6/uL (3.5-6.1); RED CELL DISTRIBUTION WIDTH 13.1 % (11.5-14.5); WHITE BLOOD COUNT 12.7 10^3/uL (4.5-11.0)
[2018-05-16 10:16] LABS: TROPONIN I < 0.01 ng/mL
--- NOTE | 2018-05-16 10:16 | ED PDOC ---
Arrival/HPI - General Chief Complaint: Syncope Time Seen by Provider: 05/16/18 09:09 Historian: Patient - History of Present Illness Narrative History of Present Illness (Text): 05/16/18 10:14 73-year-old male with past medical history of hypertension, HIV - is undetectable and is on antiviral medication, reports multiple episodes of vomiting and diarrhea since last night, he adds that he had a syncopal episode last night and a near syncopal episode this morning prompting ER visit. Patient states that he felt "funny" in his head and developed a cold sweat and then passed out last night and had similar symptoms this morning however did not syncopized. He states that his godson has vomiting as well yesterday and believes that his symptoms are related to something he had eaten. Otherwise: (-) lightheadedness, (-) trauma, (-) headache, (-) tinnitus, (-) hearing loss, (-) chest pain, (-) dyspnea, (-) fever, (-) abdominal pain, (-) recent travel, (-) GI bleeding. PMD in [place] Past Medical History - Infectious Disease Hx of Infectious Diseases: None - Cardiac Hx Angina: Yes (1979 CARDIAC R/O) Hx Hypertension: Yes - Pulmonary Hx Respiratory Disorders: Yes Hx Respiratory Tract Infection: Yes (JUN 2017) Other/Comment: Pt has history of HIV - Neurological Hx Neurological Disorder: No - HEENT Hx HEENT Disorder: Yes (SEASONAL ALLERGIES) Other/Comment: SHINGLES EYE - Renal Hx Renal Disorder: No Hx Kidney Stones: Yes - Endocrine/Metabolic Hx Endocrine Disorders: No - Hematological/Oncological Hx Blood Disorders: Yes Hx Hepatitis B: Yes Hx Shingles: Yes - Integumentary Hx Dermatological Disorder: Yes Other/Comment: RED DARKENED AREAS ARMS LEGS FACE HEAD - Musculoskeletal/Rheumatological Hx Musculoskeletal Disorders: Yes Hx Arthritis: Yes - Gastrointestinal Hx Gastrointestinal Disorders: Yes (BOUTS OF DIARRHEA) - Genitourinary/Gynecological Hx Genitourinary Disorders: Yes Other/Comment: removal ureteral stent - Psychiatric Hx Psychophysiologic Disorder: No Hx Substance Use: No - Surgical History Hx Cardiac Catheterization: Yes () Hx Orthopedic Surgery: No Other/Comment: CYSTOSCOPY STENT INSERTION - Anesthesia Hx Anesthesia: Yes Hx Anesthesia Reactions: No Hx Malignant Hyperthermia: No Family/Social History Family/Social History: No Known Family HX Smoking Status: Never Smoked Hx Alcohol Use: No Hx Substance Use: No Allergies/Home Meds Allergies/Adverse Reactions: Allergies Penicillins Allergy (Intermediate, Verified 07/11/17 16:29) RASH Home Medications: Home Meds Medication Instructions Recorded Confirmed Darunavir/Cobicistat [Prezcobix 1 tab PO DAILY 08/05/16 05/16/18 800 mg-150 mg Tablet] Valacyclovir HCl [Valacyclovir] 500 mg PO HS 08/14/17 05/16/18 Emtricitabine [Emtriva] 200 mg PO DAILY 08/15/17 05/16/18 Emtricitabine/Tenofov Alafenam 1 tab PO DAILY 10/08/17 05/16/18 [Descovy 200-25 mg Tablet] Entecavir 0.5 mg PO DAILY 10/08/17 05/16/18 Losartan/Hydrochlorothiazide 1 each PO DAILY 05/16/18 05/16/18 [Losartan-Hctz 50-12.5 mg Tab] Review of Systems - Review of Systems Constitutional: Fatigue. absent: Fevers Respiratory: absent: SOB, Cough Cardiovascular: absent: Chest Pain, Palpitations, Edema Gastrointestinal: Diarrhea, Nausea, Vomiting. absent: Abdominal Pain Genitourinary Male: absent: Dysuria, Frequency Musculoskeletal: absent: Arthralgias, Back Pain, Neck Pain Skin: absent: Rash, Pruritis, Skin Lesions Neurological: absent: Headache, Dizziness, Focal Weakness Physical Exam Vital Signs Temp Pulse Resp BP Pulse Ox 05/16/18 08:54 98 F 101 H 19 142/81 100 Temperature: Afebrile Blood Pressure: Hypertensive Pulse: Regular Respiratory Rate: Normal Appearance: Positive for: Well-Appearing, Non-Toxic, Comfortable Pain Distress: None Mental Status: Positive for: Alert and Oriented X 3 - Systems Exam Head: Present: Atraumatic, Normocephalic Pupils: Present: PERRL Extroacular Muscles: Present: EOMI Conjunctiva: Present: Normal Mouth: Present: Dry Neck: Present: Normal Range of Motion Respiratory/Chest: Present: Clear to Auscultation, Good Air Exchange. No: Respiratory Distress, Accessory Muscle Use Cardiovascular: Present: Regular Rate and Rhythm, Normal S1, S2. No: Murmurs Abdomen: No: Tenderness, Distention, Peritoneal Signs Back: Present: Normal Inspection Upper Extremity: Present: Normal Inspection. No: Cyanosis, Edema Lower Extremity: Present: Normal Inspection, Neurovascularly Intact. No: Edema Neurological: Present: GCS=15, CN II-XII Intact, Speech Normal, Motor Func Grossly Intact, Normal Sensory Function Skin: Present: Warm, Dry, Normal Color. No: Rashes Psychiatric: Present: Alert, Oriented x 3, Normal Insight, Normal Concentration Medical Decision Making ED Course and Treatment: 05/16/18 10:15 Plan: -- Labs -- IV fluids -- Urinalysis -- EKG -- CXR -- Zofran IV -- Reassess and disposition -- CT head without contrast Labs reviewed : hgb 18 (previous lab 08/15/18 hgb 15), bun 33 /creat 1.6 (previous labs 08/16/17 bun 23 / creat 1.4), trop (-). EKG : ST at 112 bpm, (-) acute ST changes. CXR : NAD. CT head : no acute intracranial abnormality. On reevaluation, patient reports no headache, dizziness, CP or shortness of breath at this time. On exam, patient remains awake alert and oriented 3 in no acute distress. Diagnostic results d/w the patient. Based on history, exam and diagnostic results plan will be for observation for syncope and dehydration. Patient notified of plan for observation which he agrees to. Case d/w Dr. Gaines, agrees with plan for observation to remote tele, request d- dimer, coags and VQ scan to be ordered to r/o PE. D-dimer : (+). VQ scan : (-) for PE. - Lab Interpretations Lab Results: 05/16/18 09:25 Lab Results 05/16/18 09:25: Sodium 141, Potassium 4.8, Chloride 106, Carbon Dioxide 22, Anion Gap 19, BUN 33 H, Creatinine 1.6 H, Est GFR ( Amer) 52, Est GFR (Non-Af Amer) 43, Random Glucose 159 H, Calcium 9.5, Magnesium 1.5 L, Total Bilirubin 1.4 H, AST 56, ALT 53, Alkaline Phosphatase 67, Lactate Dehydrogenase 561, Total Creatine Kinase 408 H, CK-MB (CK-2) Pending, CK-MB (CK-2) % Pending, Troponin I Pending, Total Protein 7.9, Albumin 4.4, Globulin 3.5, Albumin/Globulin Ratio 1.2 05/16/18 09:25: APTT 27.9 - RAD Interpretation Radiology Orders: 05/16/18 09:42 CHEST PORTABLE [RAD] Stat 05/16/18 09:43 HEAD W/O CONTRAST [CT] Stat - Medication Orders Current Medication Orders: Sodium Chloride (Sodium Chloride 0.9%) 1,000 mls @ 1,000 mls/hr IV .Q1H STA Stop: 05/16/18 10:42 Last Admin: 05/16/18 10:00 Dose: 1,000 mls/hr eMAR Start Stop Document 05/16/18 10:00 EB (Rec: 05/16/18 10:01 [id number]) Intravenous Solution Start Date 05/16/18 Start Time 10:01 End Date 05/16/18 End time 11:01 Total Infusion Time 60 Discontinued Medications Ondansetron HCl (Zofran Inj) 4 mg IVP STAT STA Stop: 05/16/18 09:44 Last Admin: 05/16/18 10:00 Dose: 4 mg IVP Administration Document 05/16/18 10:00 EB (Rec: 05/16/18 10:00 [id number]) Charges for Administration # of IVP Administrations 1 - PA / DECATIZER / Resident Statement MD/DO has reviewed & agrees with the documentation as recorded. Disposition/Present on Arrival - Present on Arrival Any Indicators Present on Arrival: No History of DVT/PE: No History of Uncontrolled Diabetes: No Urinary Catheter: No History of Decub. Ulcer: No History Surgical Site Infection Following: None - Disposition Have Diagnosis and Disposition been Completed?: Yes Diagnosis: Syncope, Dehydration Disposition: HOSPITALIZED Disposition Time: 11:30 Patient Plan: Observation (to remote tele) Patient Problems: Current Active Problems Problem Status Onset Syncope Acute Dehydration Acute Condition: STABLE
[2018-05-16 10:18] LABS: HEMOGLOBIN 18.3 g/dL (14.0-18.0)
[2018-05-16 10:31] LABS: CK MB% 1.5 % (2.5-3.0)
--- NOTE | 2018-05-16 10:42 | CT ---
Date of service: 05/16/2018 PROCEDURE: CT HEAD WITHOUT CONTRAST. HISTORY: syncope COMPARISON: None available. TECHNIQUE: Axial computed tomography images were obtained through the head/brain without intravenous contrast. Radiation dose: Total exam DLP = 983.58 mGy-cm. This CT exam was performed using one or more of the following dose reduction techniques: Automated exposure control, adjustment of the mA and/or kV according to patient size, and/or use of iterative reconstruction technique. FINDINGS: HEMORRHAGE: No intracranial hemorrhage. BRAIN: No mass effect or edema. No atrophy or chronic microvascular ischemic changes. VENTRICLES: Unremarkable. No hydrocephalus. CALVARIUM: Unremarkable. PARANASAL SINUSES: Unremarkable as visualized. No significant inflammatory changes. MASTOID AIR CELLS: Unremarkable as visualized. No inflammatory changes. OTHER FINDINGS: None. IMPRESSION: No acute findings
--- NOTE | 2018-05-16 10:45 | RAD ---
Date of service: 05/16/2018 HISTORY: syncope COMPARISON: 07/11/2017 FINDINGS: LUNGS: No active pulmonary disease. PLEURA: No significant pleural effusion identified, no pneumothorax apparent. CARDIOVASCULAR: No aortic atherosclerotic calcification present. Normal cardiac size. No pulmonary vascular congestion. OSSEOUS STRUCTURES: No significant abnormalities. VISUALIZED UPPER ABDOMEN: Normal. OTHER FINDINGS: None. IMPRESSION: No active disease.
[2018-05-16] MEDS ORDERED: Fluticasone Nasal 50 mcg/Spray NS PRN (11:50)
[2018-05-16 12:04] LABS: ANISOCYTOSIS 1+; LYMPHOCYTE 6 % (22.0-35.0); MONOCYTE 4 % (1.0-6.0); NEUTROPHIL 90 % (50.0-70.0); PLATELET ESTIMATE NORMAL (NORMAL)
[2018-05-16] MEDS: POLYETHYLENE GLYCOL 3350 17 GM/Dose PACKET PO SCH ×2 (12:30→18:40)
[2018-05-16] MEDS: Ergocalciferol 50,000 Intl Units Cap PO SCH (12:40)
--- NOTE | 2018-05-16 13:20 | MRI ---
Date of service: 05/16/2018 PROCEDURE: MRI BRAIN WITHOUT CONTRAST HISTORY: SYNCOPE COMPARISON: None available. TECHNIQUE: Multiplanar, multisequence MR images of the brain were obtained without intravenous contrast enhancement. FINDINGS: HEMORRHAGE: None DWI: No evidence of an acute or early subacute infarction. BRAIN PARENCHYMA: No mass effect or edema. Minimal microvascular changes. VENTRICLES: Unremarkable. No hydrocephalus. CRANIUM: Unremarkable. ORBITS: Grossly unremarkable. PARANASAL SINUSES/MASTOIDS: Clear VASCULAR SYSTEM: Skull base flow voids intact. OTHER FINDINGS: None. IMPRESSION: Unremarkable non contrast enhanced MRI of the brain.
--- NOTE | 2018-05-16 13:23 | MRI ---
Date of service: 05/16/2018 PROCEDURE: Magnetic Resonance Angiography Brain HISTORY: SYNCOPE COMPARISON: None available. TECHNIQUE: 3D time of flight MR angiography of the intracranial arteries was performed. Rotating maximum intensity projection images were generated. FINDINGS: INTERNAL CAROTID ARTERIES: Unremarkable. The skull base, petrous, cavernous and supraclinoid segments are bilaterally widely patient. ANTERIOR CEREBRAL ARTERIES: Unremarkable. A1 and A2 segments are widely patent. Smaller distal branches unremarkable, as visualized. MIDDLE CEREBRAL ARTERIES: Unremarkable. M1 and M2 segments are widely patent. Perisylvian branches grossly symmetric. POSTERIOR CIRCULATION: Basilar Artery: Unremarkable. Distal Vertebral Arteries: Unremarkable. Posterior Cerebral Arteries: Unremarkable. Posterior Inferior Cerebellar Arteries: Unremarkable. ANEURYSM/ VASCULAR MALFORMATIONS: None. OTHER FINDINGS: None. IMPRESSION: Unremarkable MR angiography of the brain.
--- NOTE | 2018-05-16 14:09 | CARD ---
APPROVED REPORT Date of service: 05/16/2018 EKG Measurement Heart [id number] <Conclusion> Sinus tachycardia RSR' or QR pattern in V1 suggests right ventricular conduction delay NSSTW changes
--- NOTE | 2018-05-16 14:19 | CON ---
DATE: 05/16/2018 CHIEF COMPLAINT: Sick. HISTORY OF PRESENT ILLNESS: This is a 73-year-old man with history of hypertension, HIV, on medications, reports multiple episodes of vomiting and diarrhea since last night and he said he had like a funny-like sensation in the head and developed a cold sweat and then passed out last night and then similar symptoms. He had a near syncope episode this morning. No history of seizures. No history of trauma or brain injury. His CAT scan of the head showed no acute intracranial abnormalities. He has history of hepatitis B as well. ALLERGIES: PENICILLIN. FAMILY HISTORY: Noncontributory. MEDICATIONS: Reviewed by nurses' reconciliation sheet. REVIEW OF SYSTEMS: A 14-point review of systems is negative except as per the HPI. PHYSICAL EXAMINATION: VITAL SIGNS: Temperature 98, pulse of 101, blood pressure 142/81, respiratory rate 19, and oxygen saturation 100% on room air. GENERAL: The patient is sitting up in bed, in no acute distress. HEENT: Atraumatic, normocephalic. PERRLA. Extraocular muscles intact. NECK: Supple. No JVD. No adenopathy noted. LUNGS: Clear to auscultation. No adventitious sounds. HEART: S1 and S2. Normal rate and rhythm. No murmurs, rubs or gallops. ABDOMEN: Soft, nontender and nondistended. Bowel sounds are present. EXTREMITIES: No clubbing. No cyanosis. Peripheral pulses 2+ felt bilaterally. NEUROLOGIC: The patient is alert and oriented to person, place, month, and year. Recall after 5 minutes is 1/2. Poor attention span and slow thought process. Cranial nerves II through XII are intact. Motor: Moves all extremities equally. No pronator drift seen. Sensory: Decreased light touch and pinprick up to the calves bilaterally. Decreased vibration of the toes. DTRs are 2+ throughout, 1 at both knees and ankles. Coordination: [id number] intact. Gait is deferred for now. LABORATORY DATA: Sodium is 141, potassium 4.8, chloride 106, carbon dioxide 25, BUN of 32, creatinine of 1.6, random glucose 159, 5.3 in the past. ASSESSMENT: This is a 73-year-old man with a history of kidney stones, hypertension, hepatitis B, human immunodeficiency virus positive, on highly active antiretroviral therapy medication, came in with multiple episodes of diarrhea and vomiting, had a near syncopal as well as a near syncopal event, unlikely any seizures. No poor sleep hygiene. No history of seizures in the past. The syncope is most likely vasovagal in nature rather than seizure. His CAT scan of the head showed no acute intracranial abnormalities. RECOMMENDATIONS: At this time, we recommend: 1. Evaluate for his underlying reason for his vomiting and diarrhea. 2. Aspirin 81 and Lipitor 40 for stroke prevention. 3. Monitor electrolytes and correct accordingly. 4. Adequate hydration throughout the day. 5. Multivitamins. 6. No need for an EEG since this is clearly not a seizure at all. He will follow up with us as an outpatient. Thank you for this consult. Eldon Sultana MD
[2018-05-16] MEDS: Sodium Chloride 0.9% 1,000 ML IV SCH (14:27)
[2018-05-16] MEDS ORDERED: Pneumococcal 23-Valent Vaccine IM ONE (15:34)
[2018-05-16] MEDS ORDERED: Influenza Vaccine 60 mcg/0.5 mL SYR (4YR UP) IM ONE (15:34)
[2018-05-16 16:30] LABS: TROPONIN I < 0.01 ng/mL
[2018-05-16 16:39] LABS: CK MB% 1.4 % (2.5-3.0); CK-MB 5.8 ng/mL (0.0-3.6)
--- NOTE | 2018-05-16 17:08 | CP.PCM.CON ---
History of Present Illness - History of Present Illness History of Present Illness: 73 year old male with PMH of chronic HIV infection since the with current virus load undetectable, compliant with his antiretroviral therapy, chronic active Hepatitis B, dyslipidemia, obesity with BMI 34, history of herpes zoster came in to [facility] complaining of nausea and cold sweats for 1-2 days, assoicated with abdominal discomfort but not abdominal pain. He denies fevers, no headache or dizziness, no chest pain or palpitations, no diarrhea, no dysuria, no cough or colds, no dysphagia. Infectious Diseases consult is requested to further evaluate and manage. Review of Systems - Review of Systems All systems: reviewed and no additional remarkable complaints except (as per HPI) Past Patient History - Infectious Disease Hx of Infectious Diseases: None - Past Medical History & Family History Past Medical History?: Yes - Past Social History Smoking Status: Never Smoked - CARDIAC Hx Angina: Yes (1979 CARDIAC R/O) Hx Hypertension: Yes - PULMONARY Hx Respiratory Disorders: Yes Hx Respiratory Tract Infection: Yes (JUN 2017) Other/Comment: Pt has history of HIV - NEUROLOGICAL Hx Neurological Disorder: No - HEENT Hx HEENT Problems: Yes (SEASONAL ALLERGIES) Other/Comment: SHINGLES EYE - RENAL Hx Chronic Kidney Disease: No Hx Kidney Stones: Yes - ENDOCRINE/METABOLIC Hx Endocrine Disorders: No - HEMATOLOGICAL/ONCOLOGICAL Hx Blood Disorders: Yes Hx Hepatitis B: Yes Hx Shingles: Yes - INTEGUMENTARY Hx Dermatological Problems: Yes Other/Comment: RED DARKENED AREAS ARMS LEGS FACE HEAD - MUSCULOSKELETAL/RHEUMATOLOGICAL Hx Musculoskeletal Disorders: Yes Hx Arthritis: Yes - GASTROINTESTINAL Hx Gastrointestinal Disorders: Yes (BOUTS OF DIARRHEA) - GENITOURINARY/GYNECOLOGICAL Hx Genitourinary Disorders: Yes Other/Comment: removal ureteral stent - PSYCHIATRIC Hx Psychophysiologic Disorder: No Hx Substance Use: No - SURGICAL HISTORY Hx Cardiac Catheterization: Yes () Hx Orthopedic Surgery: No Other/Comment: CYSTOSCOPY STENT INSERTION - ANESTHESIA Hx Anesthesia: Yes Hx Anesthesia Reactions: No Hx Malignant Hyperthermia: No Meds Allergies/Adverse Reactions: Allergies Allergy/AdvReac Type Severity Reaction Status Date / Time Penicillins Allergy Intermediate RASH Verified 07/11/17 16:29 - Medications Medications: Current Medications Acetaminophen (Tylenol 325mg Tab) 650 mg PO Q6 PRN PRN Reason: TEMP>=99.5F Acetaminophen (Tylenol 650 Mg Supp) 650 mg RC Q6H PRN PRN Reason: TEMP>=99.5F Aspirin (Ecotrin) 81 mg PO DAILY [facility] Atorvastatin Calcium (Lipitor) 40 mg PO DIN [facility] Docusate Sodium (Colace) 100 mg PO TID [facility] Ergocalciferol (Drisdol 50,000 Intl Units Cap) 1 cap PO Q7D [facility] Fluticasone Propionate (Flonase) 1 actuation NS Q12 PRN PRN Reason: Allergy symptoms Heparin Sodium (Porcine) (Heparin) 5,000 units SC Q8 KAMRYN; Protocol Sodium Chloride (Sodium Chloride 0.9%) 1,000 mls @ 100 mls/hr IV .Q10H [facility] Non-Formulary Medication (Darunavir/Cobicistat [Prezcobix 800 Mg-150 Mg Tablet]) 1 tab PO DAILY [facility] Non-Formulary Medication (Emtricitabine [Emtriva]) 200 mg PO DAILY [facility] Non-Formulary Medication (Emtricitabine/Tenofov Alafenam [Descovy 200-25 Mg Tablet]) 1 tab PO DAILY [facility] Non-Formulary Medication (Entecavir [Entecavir]) 0.5 mg PO DAILY [facility] Ondansetron HCl (Zofran Inj) 4 mg IVP Q4H PRN PRN Reason: Nausea/Vomiting Pantoprazole Sodium (Protonix Ec Tab) 40 mg PO 0600 [facility] Polyethylene Glycol (Miralax) 17 gm PO BID [facility] Tamsulosin HCl (Flomax) 0.4 mg PO DAILY [facility] Physical Exam - Constitutional Appears: No Acute Distress, Chronically Ill - Head Exam Head Exam: NORMAL INSPECTION - Neck Exam Neck exam: Negative for: Meningismus - Respiratory Exam Respiratory Exam: Decreased Breath Sounds - Cardiovascular Exam Cardiovascular Exam: +S1, +S2 - GI/Abdominal Exam GI & Abdominal Exam: Soft. absent: Tenderness Results - Vital Signs Recent Vital Signs: Last Vital Signs Temp 98 F 05/16/18 08:54 Pulse 101 H 05/16/18 08:54 Resp 19 05/16/18 08:54 BP 142/81 05/16/18 08:54 Pulse Ox 100 05/16/18 08:54 - Labs Result Diagrams: 05/16/18 09:25 05/16/18 09:25 Labs: Laboratory Results - last 24 hr 05/16/18 05/16/18 05/16/18 09:25 09:25 09:25 WBC 12.7 H RBC 4.95 Hgb 18.3 H* D Hct 50.7 MCV 102.4 MCH 37.0 H MCHC 36.1 RDW 13.1 Plt Count 168 MPV 11.1 H Gran % 88.2 H Lymph % (Auto) 3.8 L [place] % (Auto) 7.2 H Eos % (Auto) 0.6 L Baso % (Auto) 0.2 Gran # 11.18 H Lymph # (Auto) 0.5 L [place] # (Auto) 0.9 H Eos # (Auto) 0.1 Baso # (Auto) 0.02 Neutrophils % (Manual) 90 H Lymphocytes % (Manual) 6 L Monocytes % (Manual) 4 Platelet Evaluation Normal Anisocytosis (manual) 1+ Macrocytosis (manual) 1+ APTT 27.9 Sodium 141 Potassium 4.8 Chloride 106 Carbon Dioxide 22 Anion Gap 19 BUN 33 H Creatinine 1.6 H Est GFR ( Amer) 52 Est GFR (Non-Af Amer) 43 POC Glucose (mg/dL) Random Glucose 159 H Uric Acid Calcium 9.5 Magnesium 1.5 L Total Bilirubin 1.4 H AST 56 ALT 53 Alkaline Phosphatase 67 Lactate Dehydrogenase 561 Total Creatine Kinase 408 H CK-MB (CK-2) 6.0 H CK-MB (CK-2) % 1.5 L Troponin I < 0.01 Total Protein 7.9 Albumin 4.4 Globulin 3.5 Albumin/Globulin Ratio 1.2 05/16/18 05/16/18 09:30 10:17 WBC RBC Hgb Hct MCV MCH MCHC RDW Plt Count MPV Gran % Lymph % (Auto) [place] % (Auto) Eos % (Auto) Baso % (Auto) Gran # Lymph # (Auto) [place] # (Auto) Eos # (Auto) Baso # (Auto) Neutrophils % (Manual) Lymphocytes % (Manual) Monocytes % (Manual) Platelet Evaluation Anisocytosis (manual) Macrocytosis (manual) APTT Sodium Potassium Chloride Carbon Dioxide Anion Gap BUN Creatinine Est GFR ( Amer) Est GFR (Non-Af Amer) POC Glucose (mg/dL) 143 H Random Glucose Uric Acid 10.3 H Calcium Magnesium Total Bilirubin AST ALT Alkaline Phosphatase Lactate Dehydrogenase Total Creatine Kinase CK-MB (CK-2) CK-MB (CK-2) % Troponin I Total Protein Albumin Globulin Albumin/Globulin Ratio Assessment & Plan - Assessment and Plan (Free Text) Plan: Assessment chronic HIV infection consider SIRS due to acute gastroenteritis chronic active Hepatitis B dyslipidemia obesity with BMI 34 history of herpes zoster Plan continue cART (Descovy plus Prexcobix) continue Entecavir for Chronic active hepatitis B reviewed MRI and MRA of brain which are unremarkable would monitor patient's GI symptoms and if persistent, will get ultrasound of abdomen; will trend WBC count will monitor clinically
--- NOTE | 2018-05-16 17:58 | NM ---
Date of service: 05/16/2018 COMPARISON: May 16, 2018 single-view chest TECHNIQUE: 30.2 mCi technetium 99-m DTPA aerosol. 3.8 mCI technetium 99-m MAA administered intravenously. FINDINGS: VENTILATION COMPONENT: Normal.Retention of radionuclide in the tracheobronchial tree and ingestion of radionuclide in the stomach, incidental findings PERFUSION COMPONENT: Normal. IMPRESSION: Negative ventilation perfusion scan for pulmonary embolism.
--- NOTE | 2018-05-16 19:58 | US ---
PROCEDURE: Bilateral carotid artery duplex ultrasound HISTORY: Carotid stenosis PHYSICIAN(S): Wilfredo Scherer MD. TECHNIQUE: Duplex sonography and color-flow Doppler were used to evaluate the carotid bifurcations and limited segments of the vertebral arteries bilaterally. FINDINGS: There is mild smooth hypoechoic plaque noted at the carotid bifurcations bilaterally. The peak systolic velocity in the proximal right internal carotid artery is 80 cm/sec. This corresponds to a 20 to 39% proximal right ICA stenosis. Normal systolic velocities are noted in the proximal right external carotid artery. There is antegrade flow in the right vertebral artery. The peak systolic velocity in the proximal left internal carotid artery is 76 cm/sec. This corresponds to a 20 to 39% proximal left ICA stenosis. Normal systolic velocities are noted in the proximal left external carotid artery. There is antegrade flow in the left vertebral artery. IMPRESSION: 1. Bilateral 20-39% proximal ICA stenoses. 2. Antegrade flow in both vertebral arteries.
[2018-05-16 20:46] LABS: TROPONIN I < 0.01 ng/mL
[2018-05-16] MEDS: Magnesium Sulfate 2 gm/50 ml 2 GM/50 ML BAG IVPB SCH ×2 (20:49→23:54)
[2018-05-16 21:23] LABS: RAPID PLASMA REAGIN WEAKLY REACTIVE (NONREACTIVE)
[2018-05-16 22:06] LABS: CK-MB 7.3 ng/mL (0.0-3.6)
--- NOTE | 2018-05-17 00:37 | HP ---
DATE OF EXAM: 05/16/2018 HISTORY OF PRESENT ILLNESS: Patient is a 73-year-old male who was brought to the [facility] Emergency Room by [facility]. Patient presented to the emergency room complaining of syncopal episode versus near syncope. Patient also stated that he had episode of nausea and vomiting since yesterday. A 14-system review was done. Pertinent positive, negative dictated above. According to the ER physician, ER staff evaluation, patient presented with multiple episodes of vomiting and diarrhea and a syncopal episode last night and a near-syncopal episode this morning prompting to the ER visit. CODE STATUS: Full code. LIVING WILL ADVANCE DIRECTIVE: None. ALLERGIES: PENICILLIN. HEIGHT: 5 feet 8 inches. WEIGHT: 220. BMI: 33. Patient was seen and examined in stretcher #8 in the emergency room. HOME MEDICATIONS: Valacyclovir 500 mg at bedtime, Flomax 0.4 mg daily, losartan/hydrochlorothiazide 50/12.5 daily, Entecavir 0.5 mg daily, Descovy 25/200 mg daily, Emtriva 200 mg daily, Prezcobix 800 mg/150 daily. SOCIAL HISTORY: Denies substance abuse. Denies alcohol. Denies smoking. 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 Patient's past medical history is significant for near syncope, history of renal colic, history of leukopenia, history of relative erythrocytosis, history of transient thrombocytopenia, history of transaminitis in the past, history of acute kidney injury in the past, history of microscopic hematuria, history of CD4 lymphopenia. 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 Patient's past medical history is significant for hepatitis B with positive hepatitis B antigen and positive hepatitis B RNA, history of nephrolithiasis with mild right hydronephrosis and right ureteral calculus, history of bilateral nephrolithiasis. Past medical history is also significant for ureteral stent placement and removal for nephrolithiasis, history of grade 1 abnormal relaxation pattern, history of borderline concentric left ventricular hypertrophy, history of mild aortic valve thickening, history of mild mitral valve thickening, mild mitral regurgitation, history of cystoscopy, history of urolithiasis, history of syncope and near syncope, history of cystitis. PHYSICAL EXAMINATION VITAL SIGNS: T-max is 98. Telemetry shows sinus rhythm, heart rate 101, blood pressure 142/81 up to 157/74, respirations 18 to 19, O2 sat is 96% to 100%. GENERAL: Patient is seen lying in the bed. Patient is alert, awake, responsive. HEENT: Head . HEENT examination shows pinkish conjunctivae. Dry oral mucosa. NECK: No neck rigidity. CHEST: Kyphosis. LUNGS: Show no audible crackle, rales, or wheezing. CARDIOVASCULAR: S1, S2, regular rhythm. No appreciable audible murmur, gallop, or rub. ABDOMEN: Soft. Positive bowel sound. No palpable hepatosplenomegaly. No guarding. No rigidity. No rebound tenderness. GENITALIA: Male. RECTAL: Deferred. EXTREMITIES: Show no pitting edema. No calf tenderness. No Homans sign. NEUROLOGICAL: Patient is totally alert, awake, oriented x3. He is able to move upper and lower extremities without assistance. Gait examination is not tested. Motor strength is 5/5 in upper and lower extremity. Plantars are downward. DTRs are 2+. Cranial nerves II-XII grossly intact. VASCULAR: Palpable pulses. GAIT: Not tested. DIAGNOSTICS: WBC 12.7, hemoglobin 18.3, hematocrit 51, platelets 168,000. Granulocytes 88. ESR is 4. PTT is 27.9. D-dimer is 388. Sodium 141, potassium 4.8, chloride 106, CO2 of 22, anion gap 19, BUN 33, creatinine 1.6. GFR 43. Glucose 143, 159. Uric acid 10.3. Magnesium 1.5. CPK is 408 and 418. Troponin is negative at 0.01. MB is high. LFTs are normal. Patient had [id number] done, which were negative for any active disease. Patient had a CT of the head done, which was negative. CT of the was done, which was negative. EKG shows sinus rhythm with questionable incomplete right bundle-branch block pattern. Patient was seen and evaluated in the emergency room by the ER physician and physician assistant branch operations manager. Patient was evaluated. Patient was sent for a stat V/Q scan because of the elevated creatinine for elevation of syncope and elevated D-dimer, which was negative. IMPRESSION: 1. Syncopal episode x1 to 2 with near-syncope episode this morning. 2. Questionable and possible gastroenteritis with nausea and vomiting. 3. Hypertension. 4. Sinus tachycardia. 5. Questionable systemic inflammatory response syndrome. 6. Leukocytosis with granulocytosis. 7. Erythrocytosis. 8. Acute kidney injury with underlying chronic kidney disease, stage III. 9. Hyperglycemia. 10. Hyperuricemia. 11. Hypomagnesemia. 12. Questionable mild rhabdomyolysis with elevated creatine phosphokinase. 13. Incomplete right bundle-branch block and sinus tachycardia. 14. 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 15. History of herpes zoster. 16. Questionable and possible vasovagal syncope. PLAN: At this time, patient is to be admitted to [facility], Telemetry. Urine drug screen ordered. Serial labs, serial cardiac enzymes, lipid panel, hemoglobin A1c, fructosamine, stool cultures ordered. Lyme titers ordered. Repeat CBC, PT/PTT ordered. C. diff toxin stool cultures ordered. Next, consultation with Cardiology, Neurology, Infectious Disease ordered. Patient is resumed on most of his HIV medication. Patient has been ordered vitamin D 25 hydroxy. Patient has been ordered thyroid panel. Patient has been ordered RPR. Patient has been ordered vitamin B12. Folate level has been ordered. At present, patient is seen and evaluated in the emergency room. Patient is awaiting for telemetry bed in the morning. Patient will be given magnesium sulphate rider. Patient was started on beta-ever, statins, DVT prophylaxis. Patient was started on GI prophylaxis. Patient was started on IV fluid at 100 mL an hour. Allopurinol ordered. Echo with Doppler ordered. MRI, MRA of the brain, EEG, carotid Doppler ordered. Patient has been ordered both GI, DVT prophylaxes. Physical therapy, occupational therapy ordered. Patient has been ordered carotid ultrasound. Echocardiogram ordered. At present, patient's further therapeutic intervention and diagnostic testing will be as per further management and other details. At present, patient was updated about his condition. Need for further diagnostic therapeutic intervention was discussed and explained to the patient at length and all questions concerned answered. Dictated and electronically signed, not read. Andrés MD [facility] # [id number]
[2018-05-17] MEDS: Sodium Chloride 0.9% 1,000 ML IV SCH ×3 (03:48→12:25)
[2018-05-17] MEDS: Pantoprazole 40 mg EC Tab PO SCH (05:11)
[2018-05-17 05:39] LABS: URINE BILIRUBIN NEGATIVE (NEGATIVE); URINE BLOOD NEGATIVE (NEGATIVE); URINE GLUCOSE (UA) NEGATIVE (NEGATIVE); URINE LEUKOCYTE ESTERASE NEGATIVE Leu/uL (NEGATIVE); URINE PROTEIN NEGATIVE mg/dL (<30 mg/dL); URINE UROBILINOGEN 0.2 E.U./dL (<1 E.U./dL)
[2018-05-17 05:44] LABS: URINE APPEARANCE CLEAR (CLEAR); URINE COLOR YELLOW (YELLOW)
[2018-05-17 06:20] LABS: BASO # 0.01 K/mm3 (0.0-2.0); BASO % 0.1 % (0.0-3.0); EOS # 0.2 (0.0-0.7); EOS % 2.7 % (1.5-5.0); GRAN % 68.7 % (50.0-68.0); LYMPH # 1.6 (1.2-3.4); LYMPH % 17.8 % (22.0-35.0); MEAN CELL VOLUME 102.8 fl (80.0-105.0); MEAN CORPUSCULAR HEMOGLOBIN 35.7 pg (25.0-35.0); MEAN CORPUSCULAR HGB CONC 34.7 g/dl (31.0-37.0); MEAN PLATELET VOLUME 10.3 fl (7.0-11.0); MONO # 0.9 (0.1-0.6); MONO % 10.7 % (1.0-6.0); RBC 4.29 10^6/uL (3.5-6.1); RED CELL DISTRIBUTION WIDTH 13.3 % (11.5-14.5); WHITE BLOOD COUNT 8.7 10^3/uL (4.5-11.0)
[2018-05-17 06:24] LABS: HEMOGLOBIN 15.3 g/dL (14.0-18.0); INR 1.09; PARTIAL THROMBOPLASTIN TIME 29.5 Seconds (25.1-36.5); PROTHROMBIN TIME 12.6 SECONDS (9.4-12.5)
[2018-05-17 06:50] LABS: LDL CHOLESTEROL 60 mg/dL (0-129)
[2018-05-17 06:54] LABS: FREE T4 0.73 ng/dL (0.78-2.19); T4 5.1 ug/dL (5.5-11.0)
[2018-05-17 07:20] LABS: ALB/GLOB RATIO 1.1 (1.1-1.8); ALBUMIN 3.4 g/dL (3.0-4.8); ALT/SGPT 51 U/L (7-56); AST/SGOT 63 U/L (17-59); BILIRUBIN,DIRECT 0.2 mg/dL (0.0-0.4); BLOOD UREA NITROGEN 29 mg/dL (7-21); CALCIUM 7.8 mg/dL (8.4-10.5); GFR NON-AFRICAN AMERICAN 60; HDL CHOLESTEROL 26 mg/dL (29-60)
[2018-05-17 08:47] LABS: CK MB% 0.9 % (2.5-3.0); CK-MB 10.2 ng/mL (0.0-3.6)
[2018-05-17] MEDS ORDERED: COBICISTAT PO SCH ×2 (10:00→10:08)
[2018-05-17] MEDS ORDERED: DARUNAVIR PO SCH ×2 (10:00→10:08)
[2018-05-17] MEDS ORDERED: ENTECAVIR 0.5 MG PO SCH ×2 (10:00→10:07)
[2018-05-17] MEDS ORDERED: [UNRECOGNIZED DRUG - OTHER] PO SCH ×2 (10:00→10:10)
[2018-05-17] MEDS: Potassium & Sodium Phosphate PO SCH ×4 (10:05→21:21)
[2018-05-17] MEDS: DARUNAVIR PO SCH (10:58)
[2018-05-17] MEDS: COBICISTAT PO SCH (10:58)
[2018-05-17] MEDS: [UNRECOGNIZED DRUG - OTHER] PO SCH (11:00)
[2018-05-17] MEDS: ENTECAVIR 0.5 MG PO SCH (11:00)
[2018-05-17] MEDS: EMTRICITABINE 200 MG PO SCH (11:01)
[2018-05-17 11:17] LABS: FRUCTOSAMINE 211 umol/L (190-270)
--- NOTE | 2018-05-17 11:28 | PN ---
DATE: 05/17/2018 LOCATION: The patient is in room 370, bed 1. SUBJECTIVE: The patient is admitted to telemetry for syncopal episode. Overnight nurse's notes were reviewed. The patient refused BLAISE stockings, SCDs. The patient refused some medications. The patient refuses head of the bed. The patient refused neuro checks. Despite explanation given by the nurses for indication of nursing care and further orders, but the patient refused. No known syncopal episode was documented. The patient states that his diarrhea has significantly improved. PHYSICAL EXAMINATION: VITAL SIGNS: T-max 98. Telemetry shows normal sinus rhythm. Heart rate 71 to 93 to 101. Blood pressure 121/74, 157/74. O2 sat 96-100%. Head examination is normocephalic and atraumatic. HEENT examination shows pinkish pale conjunctivae. Dry oral mucosa. NECK: No neck rigidity. Questionable soft carotid bruit. CHEST: Kyphosis. LUNGS: Showed no audible crackles, rales or wheezing. CARDIOVASCULAR: S1 and S2, regular rhythm. Unable to appreciate any murmur, gallop or rub. ABDOMEN: Soft. Positive bowel sounds. No palpable tenderness noted. No palpable hepatosplenomegaly noted. No guarding. No rigidity. No costovertebral angle tenderness. Genitalia: Male. Rectal examination is deferred. EXTREMITIES: Extremity shows no pitting edema, no calf tenderness, no Homans sign. Motor strength is 5/5 in upper and lower extremities. NEUROLOGIC: Gait examination is not tested. VASCULAR: Palpable pulses. Cranial nerves II-XII intact and limited. LABORATORY DATA: On 05/17/2018, WBC 8.7, hemoglobin/hematocrit 15.3/44.1 which is down from hemoglobin of 18, platelets 144,000; 69 segs. Sodium 138, potassium 4.1, chloride 107, CO2 of 23, BUN 29, creatinine 1.2. Both BUN creatinine have improved since yesterday. Glucose 109. Calcium 7.9, phosphorus 1.9, magnesium 2.6. AST 63. CPK has gone up to 1169. CRP is greater than 15. Uric acid is 10.3. RPR is 1:1 weakly positive. Carotid ultrasound shows 20-39% internal carotid artery stenosis. LFTs are within normal limits except for AST of 63, cholesterol is 95, LDL 60, HDL is 26. TSH is 1.18. T4 total is 5.1. MRI, MRA of the brain does not reveal any acute stroke. IMPRESSION AND PLAN: 1. Syncope with history of recurrent syncope, etiology undetermined, versus questionable vasovagal syncope. 2. Thrombocytosis. 3. Relative thrombocytopenia. 4. Acute kidney injury (resolving). 5. Hypocalcemia. 6. Hypophosphatemia. 7. Rhabdomyolysis. 8. Elevated C-reactive protein. 9. Hyperuricemia. 10. Decreased HDL of 26. 11. Weakly positive RPR of 1:1. 12. Mild granulocytosis. 13. History of human immunodeficiency virus, acquired immune deficiency syndrome. 14. History of chronic active hepatitis B. 15. Questionable dehydration with acute kidney injury (resolving). 1. Syncopal episode x1 to 2 with near-syncope episode this morning. 2. Questionable and possible gastroenteritis with nausea and vomiting. 3. Hypertension. 4. Sinus tachycardia. 5. Questionable systemic inflammatory response syndrome. 6. Leukocytosis with granulocytosis. 7. Erythrocytosis. 8. Acute kidney injury with underlying chronic kidney disease, stage III. 9. Hyperglycemia. 10. Hyperuricemia. 11. Hypomagnesemia. 12. Questionable mild rhabdomyolysis with elevated creatine phosphokinase. 13. Incomplete right bundle-branch block and sinus tachycardia. 14. 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 15. History of herpes zoster. 16. Questionable and possible vasovagal syncope. PLAN: At this time, the patient is awaiting for further recommendations by Cardiology, Neurology, Infectious Disease. antibody has been ordered. Echo with Doppler results are pending. The patient is to be continued on GI, DVT prophylaxis. The patient has been continued on IV fluids for rhabdomyolysis. The patient's serial daily labs have been ordered for evaluation of the patient's objective and subjective data. The patient has been updated about his condition, diagnosis, treatment plan, management plan at length and all questions concerned answered. If the patient's rhabdomyolysis shows significant improvement with decrease in CPK and if the patient is cleared by Neurology and Cardiology in addition, the patient would be considered for discharge soon. The patient has been updated about all above. Dictated and electronically signed, not read. Andrés Gaines MD [facility] # [id number] YVES
[2018-05-17] MEDS: Vancomycin 25 MG/ML PO SCH ×4 (12:31→22:23)
[2018-05-17 13:33] LABS: FOLATE 15.7 ng/mL
[2018-05-17] MEDS: Lactobacillus Acidophilus 500 MU Cap PO SCH ×2 (15:06→17:59)
--- NOTE | 2018-05-17 16:02 | CARD ---
APPROVED REPORT Date of service: 05/17/2018 EXAM: Two-dimensional and M-mode echocardiogram with Doppler and color Doppler. INDICATION Syncope 2D DIMENSIONS Left Atrium (2D)4.0 (1.6-4.0cm)IVSd1.1 (0.7-1.1cm) LVDd4.3 (3.9-5.9cm)PWd1.1 (0.7-1.1cm) LVDs3.1 (2.5-4.0cm)FS (%) 29.3 % LVEF (%)56.5 (>50%) M-Mode DIMENSIONS Aortic Root3.00 (2.2-3.7cm)Aortic Cusp Exc.1.70 (1.5-2.0cm) Aortic Valve AoV Peak Hmvdgsoe309.0cm/Abbi Peak GR.9mmHg Mitral Valve E/A ratio0.0 TDI E/Lateral E'0.0E/Medial E'0.0 Tricuspid Valve TR Peak [id number] [id number] Peak Gr.13mmHg [id number] LEFT VENTRICLE The left ventricular function is normal. The left ventricular ejection fraction is within the normal range. RIGHT VENTRICLE The right ventricle is normal size. ATRIA The left atrium is mildly dilated. The right atrium size is normal. AORTIC VALVE The aortic valve is thickened but opens well. MITRAL VALVE The mitral valve is thickened but opens well. Mitral regurgitation is trace to mild. TRICUSPID VALVE The tricuspid valve leaflets are thickened , but open well. There is trace to mild tricuspid regurgitation. There is no pulmonary hypertension. PULMONIC VALVE The pulmonic valve is not well visualized. PERICARDIAL EFFUSION There is no pericardial effusion. <Conclusion> Good LV function No LV outflow obstruction Mildly dilated LA Mild TR and MR No pulmonary hypertension
[2018-05-17 17:12] LABS: LYME IGG NEGATIVE (NEGATIVE)
[2018-05-17 17:14] LABS: LYME IGM NEGATIVE (NEGATIVE)
--- NOTE | 2018-05-17 19:42 | CON ---
DATE OF CONSULTATION: 05/17/2018 HISTORY: The patient is a 73-year-old male who presents with repeated episodes of near syncope once he has his diarrhea episodes. The patient has had multiple diarrhea episodes, which have not been worked up by his primary care doctor in [facility]. He denies cardiac history. No angina, no shortness of breath. These episodes of near syncope are only after he has diarrhea episodes. PAST MEDICAL HISTORY: History of HIV treated with immunosuppressives in which his viral load is now undetectable. SOCIAL HISTORY: Denies smoking. REVIEW OF SYSTEMS: No previous cardiac history. No angina, no shortness of breath, no edema in the lower extremities. PHYSICAL EXAMINATION: VITAL SIGNS: Stable. NECK: Negative JVD. LUNGS: Without rales. HEART: S1, S2. EXTREMITIES: Without edema. DIAGNOSTIC DATA: EKG shows no acute changes. Troponin is negative x1. Echocardiogram reveals good LV function with no LV outflow obstruction. His neurologic workup has been negative so far. IMPRESSION: 1. Repeated episodes of near syncope associated with diarrhea. 2. Etiology is likely due to dehydration. 3. Etiology of his diarrhea is unclear. 4. History of HIV, which is well controlled. 5. Obesity. PLAN: Given these findings, IV hydration is the way to go. I have discussed with the patient about the need for more intensive followup with the new primary care doctor in the area. In addition, workup of his diarrhea would be more appropriate. No further cardiac workup is necessary for his near syncope. We will arrange for an outpatient stress test next week. Wilfredo Stewart MD
--- NOTE | 2018-05-17 23:37 | PN ---
DATE: 05/17/2018 SUBJECTIVE: The patient is seen earlier today in room 370, bed 1. No fevers or chills. PHYSICAL EXAMINATION: VITAL SIGNS: Temperature is 98, blood pressure is 126/70, respiratory rate of 18, heart rate of 78. HEENT: Unremarkable. NECK: Supple. LUNGS: Decreased breath sounds. HEART: Normal S1 and S2. ABDOMEN: Soft and nontender. LABORATORY DATA: Laboratory examination reveals a white count of 8.7, hemoglobin of 15. Chemistries are noted. Serologies noted. RPR is weakly positive and titers are 1:1. Microbiology is noted. Stool for C. difficile antigen and toxin is negative. Review of orders reveals the patient to be on p.o. vancomycin and p.o. Valtrex. ASSESSMENT AND PLAN: This is a 73-year-old male, seen earlier today with a positive history of human immunodeficiency virus with systemic inflammatory response syndrome and gastroenteritis. The patient is on Prezcobix and Descovy and entecavir for chronic hepatitis B. The patient was started on oral vancomycin today. The stool Clostridium difficile toxin and antigen negative, very unlikely to be pseudomembranous colitis. We recommended continue to be on vancomycin. I reviewed the laboratories. In view of the patient's human immunodeficiency virus, it was undetectable in 06/2017 and the patient's CD4 count was 181 in 06/2017 but 13% for stool cultures and stool workup. We will follow with you. Kenny Gonzalez MD
[2018-05-18] MEDS: Sodium Chloride 0.9% 1,000 ML IV SCH ×2 (01:31→17:45)
[2018-05-18] MEDS: Pantoprazole 40 mg EC Tab PO SCH (05:17)
[2018-05-18 06:47] LABS: BASO # 0.01 K/mm3 (0.0-2.0); BASO % 0.1 % (0.0-3.0); EOS # 0.2 (0.0-0.7); EOS % 3.2 % (1.5-5.0); GRAN # 4.11 (1.4-6.5); GRAN % 54.4 % (50.0-68.0); HEMOGLOBIN 14.8 g/dL (14.0-18.0); LYMPH # 2.2 (1.2-3.4); LYMPH % 29.7 % (22.0-35.0); MEAN CELL VOLUME 102.4 fl (80.0-105.0); MEAN CORPUSCULAR HEMOGLOBIN 35.7 pg (25.0-35.0); MEAN CORPUSCULAR HGB CONC 34.8 g/dl (31.0-37.0); MEAN PLATELET VOLUME 10.3 fl (7.0-11.0); MONO % 12.6 % (1.0-6.0); RBC 4.15 10^6/uL (3.5-6.1); RED CELL DISTRIBUTION WIDTH 13.1 % (11.5-14.5); WHITE BLOOD COUNT 7.6 10^3/uL (4.5-11.0)
[2018-05-18 07:51] LABS: ALB/GLOB RATIO 1.1 (1.1-1.8); ALBUMIN 3.3 g/dL (3.0-4.8); ALT/SGPT 62 U/L (7-56); AST/SGOT 80 U/L (17-59); BILIRUBIN,DIRECT 0.2 mg/dL (0.0-0.4); BLOOD UREA NITROGEN 22 mg/dL (7-21); CALCIUM 7.4 mg/dL (8.4-10.5); GFR NON-AFRICAN AMERICAN 60
[2018-05-18 08:31] LABS: CK MB% 0.7 % (2.5-3.0); CK-MB 9.4 ng/mL (0.0-3.6)
[2018-05-18] MEDS ORDERED: Potassium Phosphate 15 MMOLE in Sodium Chloride 0.9% 250 ML IVPB ONE (09:37)
--- NOTE | 2018-05-18 09:49 | PN ---
DATE: 05/18/2018 CARDIOLOGY FOLLOWUP SUBJECTIVE: The patient is feeling well. He still continues to diarrhea. PHYSICAL EXAMINATION: VITAL SIGNS: Blood pressure is 116/75, the heart rate is in the 70s. NECK: Negative JVD. LUNGS: Without rales. HEART: Reveals S1, S2. EXTREMITIES: Without edema. LABORATORY DATA: Hemoglobin is 14.8, BUN and creatinine are 22 and 1.2. LFTs are elevated. IMPRESSION: 1. Status post syncope after diarrhea episode. 2. Likely dehydration as the cause. 3. Echocardiogram reveals good LV function with no LV outflow obstruction. 4. Status post electrolyte abnormalities. PLAN: Given these findings, there is no cardiac cause of his syncope. Attention needs to be directed at the cause of his diarrhea. We will continue IV fluids. Wilfredo Stewart MD
[2018-05-18] MEDS: Lactobacillus Acidophilus 500 MU Cap PO SCH ×3 (09:59→17:42)
[2018-05-18] MEDS: Potassium & Sodium Phosphate PO SCH ×4 (09:59→21:30)
[2018-05-18] MEDS: ENTECAVIR 0.5 MG PO SCH (10:03)
[2018-05-18] MEDS: COBICISTAT PO SCH (10:03)
[2018-05-18] MEDS: DARUNAVIR PO SCH (10:03)
[2018-05-18] MEDS: [UNRECOGNIZED DRUG - OTHER] PO SCH (10:05)
[2018-05-18] MEDS: Vancomycin 25 MG/ML PO SCH ×3 (10:06→17:42)
[2018-05-18] MEDS: EMTRICITABINE 200 MG PO SCH (10:06)
--- NOTE | 2018-05-18 12:53 | CP.PCM.PN ---
Subjective - Date & Time of Evaluation Date of Evaluation: 05/18/18 Time of Evaluation: 12:46 - Subjective Subjective: Sravan Garcia PGY2 - Progress Note for Dr. Gaines's Service Patient seen and examined this AM. No acute events reported overnight. Patient indicates he continues to have diarrhea with multiple of loose stool through out the day. He indicates that he thought his symptoms improved after starting the vancomycin. He reports 3-4 loose stool movements over a 12 hour period. He denies pain with defecation. Objective - Vital Signs/Intake and Output Vital Signs (last 24 hours): Temp Pulse Resp BP Pulse Ox 99.8 F H 74 20 116/75 95 05/18/18 06:00 05/18/18 09:59 05/18/18 06:00 05/18/18 09:59 05/18/18 06:00 Intake and Output: 05/18/18 05/18/18 06:59 18:59 Intake Total 1380 Balance 1380 - Medications Medications: Current Medications Acetaminophen (Tylenol 325mg Tab) 650 mg PO Q6 PRN PRN Reason: TEMP>=99.5F Acetaminophen (Tylenol 650 Mg Supp) 650 mg RC Q6H PRN PRN Reason: TEMP>=99.5F Aspirin (Ecotrin) 81 mg PO DAILY [facility] Last Admin: 05/18/18 09:59 Dose: 81 mg Atorvastatin Calcium (Lipitor) 40 mg PO DIN [facility] Last Admin: 05/17/18 18:00 Dose: 40 mg Ergocalciferol (Drisdol 50,000 Intl Units Cap) 1 cap PO Q7D [facility] Last Admin: 05/16/18 12:40 Dose: 1 cap Fluticasone Propionate (Flonase) 1 actuation NS Q12 PRN PRN Reason: Allergy symptoms Heparin Sodium (Porcine) (Heparin) 5,000 units SC Q8 KAMRYN; Protocol Last Admin: 05/18/18 05:14 Dose: 5,000 units Sodium Chloride (Sodium Chloride 0.9%) 1,000 mls @ 125 mls/hr IV .Q8H [facility] Last Admin: 05/18/18 01:31 Dose: 125 mls/hr Potassium Phosphate 15 mmole/ (Sodium Chloride) 255 mls @ 42.5 mls/hr IVPB ONCE ONE Stop: 05/18/18 15:36 Last Admin: 05/18/18 10:23 Dose: 42.5 mls/hr Lactobacillus Acidophilus (Bacid Acidophilus) 1 cap PO TID [facility] Stop: 05/19/18 10:01 Last Admin: 05/18/18 09:59 Dose: 1 cap Loratadine (Claritin) 10 mg PO DAILY [facility] Last Admin: 05/18/18 10:09 Dose: 10 mg Metoprolol Tartrate (Lopressor) 25 mg PO BID [facility] Last Admin: 05/18/18 09:59 Dose: 25 mg Non-Formulary Medication (Emtricitabine [Emtriva]) 200 mg PO DAILY [facility] Last Admin: 05/18/18 10:06 Dose: Not Given Non-Formulary Medication (Entecavir [Entecavir]) 0.5 mg PO DAILY [facility] Last Admin: 05/18/18 10:03 Dose: 0.5 mg Non-Formulary Medication (Darunavir/Cobicistat [Prezcobix 800 Mg-150 Mg Tablet]) 1 tab PO DAILY [facility] Last Admin: 05/18/18 10:03 Dose: 1 tab Non-Formulary Medication (Emtricitabine/Tenofov Alafenam [Descovy 200-25 Mg Tablet]) 1 tab PO DAILY [facility] Last Admin: 05/18/18 10:05 Dose: 1 tab Ondansetron HCl (Zofran Inj) 4 mg IVP Q4H PRN PRN Reason: Nausea/Vomiting Pantoprazole Sodium (Protonix Ec Tab) 40 mg PO 0600 [facility] Last Admin: 05/18/18 05:17 Dose: 40 mg Potassium Phos/Sodium Phos (Neutra-Phos) 1 pkt PO QID [facility] Stop: 05/18/18 22:01 Last Admin: 05/18/18 09:59 Dose: 1 pkt Tamsulosin HCl (Flomax) 0.4 mg PO DAILY [facility] Last Admin: 05/18/18 09:59 Dose: 0.4 mg Valacyclovir HCl (Valtrex) 500 mg PO HS [facility]; Protocol Last Admin: 05/17/18 21:21 Dose: 500 mg Vancomycin HCl (Vancocin 25 Mg/Ml (Oral Use)) 250 mg PO QID [facility]; Protocol Last Admin: 05/18/18 10:06 Dose: 250 mg - Labs Labs: 05/18/18 05:45 05/18/18 05:45 PT 12.6 SECONDS (9.4-12.5) H 05/17/18 06:00 INR 1.09 05/17/18 06:00 APTT 29.5 Seconds (25.1-36.5) 05/17/18 06:00 - Constitutional Appears: No Acute Distress - Head Exam Head Exam: ATRAUMATIC, NORMAL INSPECTION, NORMOCEPHALIC - Eye Exam Eye Exam: EOMI, PERRL - ENT Exam ENT Exam: Mucous Membranes Moist - Neck Exam Neck Exam: Full ROM - Respiratory Exam Respiratory Exam: Clear to Ausculation Bilateral, NORMAL BREATHING PATTERN. absent: Rhonchi, Wheezes - Cardiovascular Exam Cardiovascular Exam: REGULAR RHYTHM, +S1, +S2 - GI/Abdominal Exam GI & Abdominal Exam: Distended, Soft, Tenderness, Normal Bowel Sounds. absent: Guarding, Mass, Rebound - Extremities Exam Extremities Exam: Full ROM, Normal Inspection. absent: Pedal Edema - Neurological Exam Neurological Exam: Alert, Awake, Normal Gait, Oriented x3 Neuro motor strength exam: Left Upper Extremity: 5, Right Upper Extremity: 5, Left Lower Extremity: 5, Right Lower Extremity: 5 - Psychiatric Exam Psychiatric exam: Normal Affect, Normal Mood - Skin Skin Exam: Dry, Intact Assessment and Plan - Assessment and Plan (Free Text) Assessment: - Syncope - Gastroenteritis - HTN - Tachycardia - BINU in setting of CKD stage III - Hyperuricemia - Rhabdomyolysis with elevated CK - Incomplete RBBB - Mild transaminitis - Hx of HIV 2/2 sexual contact, last known CD4 count 181 in 06/2017 - Hx of chronic active hepatitis - Hx of Herpes Zoster - Hx of cystitis - Hx of mild AV and MV thickening - Syncope etiology workup pending, negatiev D-Dimer, imaging at this point benign - Cardiology consulted and following with recommendations of syncope being less likely cardiac in origin - Neurology consutled and following with recommendations of syncope being likely due to vasovagal - Continual diarrhea throughout hospital stay, patient placed on PO Vancomyocin without significant improvement in symptoms - Stool workup pending - Continue with IVF - C. Diff negative - ID consulted and following with recommendations of continue prezcobix and descovy and entecavir for chronic hepatitis B, recommend continuing vancomycin - Continue diet, DVT and GI prophylaxis of lovenox and protonix Echocardiogram: Good LV function, mildly dilated LA, mild TR and MR, no pulmonary HTN, EF >50% Head CT: Negative for acute intracranial abdnormalities Brain MRI: negative for acute abnormalities D-Dimer wnl
--- NOTE | 2018-05-18 15:08 | US ---
Date of service: 05/18/2018 HISTORY: HBV/HIV/TRANSAMINITIS COMPARISON: 08/07/2016 TECHNIQUE: Sonographic evaluation of the abdomen. FINDINGS: LIVER: Measures 17.4 x 16.7 cm. Hepatopedal blood flow. Fatty infiltration manifest ultrasonographically as increased echogenicity of the liver parenchyma. No mass. No intrahepatic bile duct dilatation. GALLBLADDER: Unremarkable. No gallstones. COMMON BILE DUCT: Measures 3.6 mm. No stones. No dilatation. PANCREAS: Unremarkable as visualized. No mass. No ductal dilatation. RIGHT KIDNEY: Measures 6.2 x 11.5cm. Normal echogenicity. No calculus, mass, or hydronephrosis. LEFT KIDNEY: Measures 5.4 x 11.6cm. Normal echogenicity. No calculus, mass, or hydronephrosis. SPLEEN: Top normal in size and normal contour. No mass. AORTA: No aneurysmal dilatation. IVC: Unremarkable. OTHER FINDINGS: None. IMPRESSION: Hepatomegaly, hepatic steatosis without focal abnormality. Top-normal spleen. No acute findings
[2018-05-18 15:26] LABS: PH,URINE 5.5 (4.7-8.0); URINE BILIRUBIN NEGATIVE (NEGATIVE); URINE BLOOD SMALL (NEGATIVE); URINE GLUCOSE (UA) NEGATIVE (NEGATIVE); URINE LEUKOCYTE ESTERASE NEGATIVE Leu/uL (NEGATIVE); URINE PROTEIN NEGATIVE mg/dL (<30 mg/dL); URINE UROBILINOGEN 0.2 E.U./dL (<1 E.U./dL)
[2018-05-18 15:27] LABS: URINE APPEARANCE CLEAR (CLEAR); URINE COLOR YELLOW (YELLOW)
[2018-05-18 15:39] LABS: URINE RBC 0 - 2 /hpf (0-2); URINE WBC NEGATIVE /hpf (0-6)
[2018-05-18 16:40] LABS: HEPATITIS A IGM NEGATIVE (NEGATIVE)
[2018-05-18] MEDS ORDERED: Iohexol 240 (50 ml) ONE (16:45)
[2018-05-18 16:52] LABS: HEPATITIS C ANTIBODY NEGATIVE (NEGATIVE)
[2018-05-18 17:35] LABS: HEPATITIS B CORE AB REACTIVE (NEGATIVE)
[2018-05-18 17:44] LABS: HEPATITIS B SURFACE AG Reactive (NEGATIVE)
--- NOTE | 2018-05-18 22:47 | PN ---
DATE: 05/18/2018 SUBJECTIVE: The patient is seen in room 370, bed #1 with the patient's nurse at bedside. The patient is complaining of diarrhea and complaining of small amount of watery stool, which has not improved despite the patient being put on Bacid and p.o. Vancocin. The patient denies any syncopal episode. Denies any loss of consciousness. PHYSICAL EXAMINATION: VITAL SIGNS: T-max is 99.8 today. Heart rate 74-78, blood pressure 116/75, 114/84. Respirations 20, O2 saturation 95%-96%. The patient's telemetry was discontinued. Yesterday's telemetry shows sinus rhythm. HEENT: Head examination: Normocephalic, atraumatic. HEENT examination shows pinkish conjunctivae, anicteric sclerae. No oropharyngeal lesion. NECK: No neck rigidity. CHEST: Kyphosis. LUNGS: Show no audible rales, crackles, or wheezing. ABDOMEN: Distended, protuberant. No palpable hepatosplenomegaly. GENITALIA: Male. RECTAL: Examination is deferred. EXTREMITIES: Show no pitting edema, no calf tenderness, no Homans' sign. MUSCULOSKELETAL: Examination shows elevated body mass index of 33.5. NEUROLOGIC: The patient is alert, awake, and oriented x3. Cranial nerves II through XII intact. Gait examination is independent. VASCULAR: Palpable pulses. DIAGNOSTICS: On 05/18/2018: WBC 7.6, hemoglobin/hematocrit 14.8/42.5, platelets 141. Sodium 138, potassium 4.1, chloride 110, CO2 of 22, anion gap 11, BUN 22, creatinine down to 1.2, GFR greater than 60, glucose 98, calcium 7.4, phosphorus 1.8, magnesium 2.2. AST is 80, ALT 62. CPK has gone up to 1291. Rest of the LFTs are normal. PSA is 2.3. Vitamin D 25-hydroxy 21. HDL is 26, LDL is 60. Urinalysis shows pH of 5.5, specific gravity 1.220, small blood, stool occult blood is positive x1. RPR is weakly reactive 1:1. FTA is reactive. Lyme titers are negative. Giardia undetected. Hepatitis serologies are pending. Hepatitis C antibody is negative. Hepatitis A IgM is negative. Clostridium difficile antigen and toxins are negative. Stool culture, no growth. Abdominal ultrasound was noted. V/Q scan was negative for pulmonary embolism. MRA of the brain, carotid ultrasound, MRI of the brain, chest x-ray, CAT scan of the head, all reviewed. ECHOCARDIOGRAM: EKG results were also reviewed. All above was explained to the patient in layman's language. IMPRESSION AND PLAN: 1. Recurrent syncope with near-syncope, etiology undetermined. 2. Questionable gastroenteritis with diarrhea. 3. Questionable systemic inflammatory response syndrome. 4. Sinus tachycardia with questionable incomplete right bundle-branch block versus right ventricular conduction delay. 5. Acute kidney injury (resolved). 6. Rhabdomyolysis with elevated CPK. 7. Transaminitis. 8. 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 9. Chronic active hepatitis B. 10. Systemic inflammatory response syndrome. 11. Chronic human immunodeficiency virus infection. 12. Obesity with elevated body mass index. 13. History of nephrolithiasis. 14. Questionable vasovagal syncope. 15. Leukocytosis, erythrocytosis, and granulocytosis. 16. Elevated D-dimer. 17. Status post acute kidney injury. 18. Hyperuricemia. 19. Rhabdomyolysis with elevated CPK. 20. Elevated C-reactive protein. 21. Hypophosphatemia, hypocalcemia. 22. Hypovitaminosis D. 23. Decreased HDL of 26. 24. Microscopic hematuria. 25. Fecal occult blood positive 26. Reactive fluorescent treponemal antibodies and weakly reactive RPR 1:1. 27. Hepatomegaly with hepatic steatosis and mild borderline splenomegaly. 28. 20% to 39% proximal internal carotid artery stenosis. 29. Left ventricular ejection fraction of 56% with mildly dilated left atrium. 30. Mild mitral regurgitation. 31. Mild tricuspid regurgitation. 32. Hypomagnesemia. 33. Sinus tachycardia with questionable incomplete right bundle-branch block versus right ventricular conduction delay. 36. History of herpes zoster. 34. Abdominal distention, etiology undetermined. 35. Persistent refractory diarrhea, etiology undetermined. 1. Syncope with history of recurrent syncope, etiology undetermined, versus questionable vasovagal syncope. 2. Thrombocytosis. 3. Relative thrombocytopenia. 4. Acute kidney injury (resolving). 5. Hypocalcemia. 6. Hypophosphatemia. 7. Rhabdomyolysis. 8. Elevated C-reactive protein. 9. Hyperuricemia. 10. Decreased HDL of 26. 11. Weakly positive RPR of 1:1. 12. Mild granulocytosis. 13. History of human immunodeficiency virus, acquired immune deficiency syndrome. 14. History of chronic active hepatitis B. 15. Questionable dehydration with acute kidney injury (resolving). 1. Syncopal episode x1 to 2 with near-syncope episode this morning. 2. Questionable and possible gastroenteritis with nausea and vomiting. 3. Hypertension. 4. Sinus tachycardia. 5. Questionable systemic inflammatory response syndrome. 6. Leukocytosis with granulocytosis. 7. Erythrocytosis. 8. Acute kidney injury with underlying chronic kidney disease, stage III. 9. Hyperglycemia. 10. Hyperuricemia. 11. Hypomagnesemia. 12. Questionable mild rhabdomyolysis with elevated creatine phosphokinase. 13. Incomplete right bundle-branch block and sinus tachycardia. 14. 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 15. History of herpes zoster. 16. Questionable and possible vasovagal syncope. PLAN: At this time, the patient has been ordered serial labs. The patient's Lyme titers are pending. Repeat CBT orders. CURRENT CONSULTATIONS: Cardiology, Neurology, Gastroenterology, Infectious Disease. The patient has been ordered for evaluation in his TCU (Transitional Care Unit). The case was referred to TCU. CURRENT MEDICATIONS: Lactobacillus 1 capsule three times a day, Claritin 10 mg daily, the patient is on Prezcobix 800/150 daily, Drisdol 50,000 weekly, Ecotrin 81 mg daily, Emtriva 200 mg daily, Descovy 200/25 mg daily, entecavir 0.5 mg daily, Flomax 0.4 mg daily, Flonase nasal spray p.r.n., heparin 5000 subcu every 8 hours, Lipitor 40 mg daily, Lopressor 25 mg twice a day, Neutra-Phos 1 packet 4 times a day. The patient is also given one K-Phos rider x1, Protonix 40 mg daily, IV fluid 0.9, normal saline at 125 mL an hour, Tylenol p.r.n., Valtrex 500 mg at bedtime. The patient is on empiric p.o. vancomycin 250 four times a day, Zofran 4 mg IV every 4 hours p.r.n. CAT scan of the abdomen and pelvis has been ordered for evaluation of the fecal occult blood positive and abdominal distention with GI consultation ordered. The patient is on incentive spirometry, out of bed ad colette. The patient has been updated about his condition, diagnosis, test results at length, and all questions concerned answered. The patient is awaiting for further neurological and Infectious Disease evaluation regarding positive FTA and positive RPR. I have requested a reevaluation with Infectious Disease and Neurology for further recommendation. At present, the patient will be continued on the above therapeutic intervention. The patient updated about his condition, diagnosis, test results. Need for further inpatient management was discussed and explained to the patient at length and all questions concerned answered. Dictated and electronically signed, not read. Andrés Gaines MD MTDD
--- NOTE | 2018-05-18 23:19 | CP.PCM.PCO ---
Additional Comments - Additional Comments Additional Comments: Pt was said to have hallucinations as per ninichole, who claims to be an RN and requested evaluation of the pt. Pt reports hearing voice and laughter of aunt, and feeling scared and "crazy" which prompted him to call niece and tell her about it. He denies previous psych history of any hallucinations or delusions. He denies any SI/HI. Pt did not have any further episodes of hallucinations. He said he preferred to try to sleep it off, as he has not been sleeping well the past few nights. Pt did not want to take any medication to help sleep.
--- NOTE | 2018-05-18 23:37 | PN ---
DATE: 05/18/2018 SUBJECTIVE: The patient is in bed, in no acute distress. PHYSICAL EXAMINATION: VITAL SIGNS: Temperature is 99, blood pressure is 120/80, and respiratory rate 20. HEENT: Unremarkable. NECK: Supple. LUNGS: Have decreased breath sounds. HEART: Normal S1 and S2. ABDOMEN: Soft. LABORATORY EXAMINATION: Reveals a white count of 7.6, hemoglobin of 14, and platelets of 141,000. Chemistries are noted. BUN of 22 and creatinine of 1.2. Urinalysis is noted and serology is noted that the patient has a weakly RPR positive and FTA is positive. ASSESSMENT AND PLAN: This is a 73-year-old male who was seen earlier today with a positive human immunodeficiency virus with systemic inflammatory response syndrome, gastroenteritis, on Prezcobix and Descovy and entecavir for chronic hepatitis B the patient has had a history of treatment for syphilis. Then, he would not need any further treatment. We will obtain further history for syphilis. Currently, on vancomycin. The patient's Clostridium difficile antigen and toxin are both negative. We will discontinue p.o. vancomycin. Kenny Gonzalez MD
[2018-05-19] MEDS: Sodium Chloride 0.9% 1,000 ML IV SCH ×3 (02:51→21:16)
[2018-05-19] MEDS: Pantoprazole 40 mg EC Tab PO SCH (05:33)
[2018-05-19 07:02] LABS: BASO # 0.01 K/mm3 (0.0-2.0); BASO % 0.1 % (0.0-3.0); EOS # 0.3 (0.0-0.7); GRAN # 3.18 (1.4-6.5); GRAN % 46.6 % (50.0-68.0); HEMOGLOBIN 14.5 g/dL (14.0-18.0); LYMPH # 2.4 (1.2-3.4); LYMPH % 34.8 % (22.0-35.0); MEAN CELL VOLUME 101.9 fl (80.0-105.0); MEAN CORPUSCULAR HEMOGLOBIN 35.3 pg (25.0-35.0); MEAN CORPUSCULAR HGB CONC 34.6 g/dl (31.0-37.0); MEAN PLATELET VOLUME 10.4 fl (7.0-11.0); MONO % 14.5 % (1.0-6.0); RBC 4.11 10^6/uL (3.5-6.1); RED CELL DISTRIBUTION WIDTH 12.9 % (11.5-14.5); WHITE BLOOD COUNT 6.8 10^3/uL (4.5-11.0)
[2018-05-19 07:30] LABS: ALB/GLOB RATIO 1.1 (1.1-1.8); ALBUMIN 3.5 g/dL (3.0-4.8); ALT/SGPT 66 U/L (7-56); AST/SGOT 76 U/L (17-59); BILIRUBIN,DIRECT 0.2 mg/dL (0.0-0.4); BLOOD UREA NITROGEN 16 mg/dL (7-21); CALCIUM 7.9 mg/dL (8.4-10.5); GFR NON-AFRICAN AMERICAN > 60
[2018-05-19 08:33] LABS: CK MB% 0.7 % (2.5-3.0); CK-MB 5.9 ng/mL (0.0-3.6)
[2018-05-19] MEDS: Lactobacillus Acidophilus 500 MU Cap PO SCH (09:14)
[2018-05-19] MEDS: DARUNAVIR PO SCH (09:15)
[2018-05-19] MEDS: [UNRECOGNIZED DRUG - OTHER] PO SCH (09:15)
[2018-05-19] MEDS: COBICISTAT PO SCH (09:15)
[2018-05-19] MEDS: ENTECAVIR 0.5 MG PO SCH (09:16)
[2018-05-19] MEDS: EMTRICITABINE 200 MG PO SCH (09:17)
--- NOTE | 2018-05-19 10:28 | CP.PCM.PN ---
Subjective - Date & Time of Evaluation Date of Evaluation: 05/19/18 Time of Evaluation: 10:18 - Subjective Subjective: Sravan Garcia PGY2 - Progress Note for Dr. Gaines's Service Patient seen and examined this AM. Overnight resident reported events of p otential auditory hallucinations. When discussed with patient regarding event he indicated he was dreaming and talking in his sleep. He denied hx of auditory or visual hallucinations. He denied responding to outside stimuli last evening. He does report continued diarrhea thought he is aware that this is a side effect of his ART therapy. Objective - Vital Signs/Intake and Output Vital Signs (last 24 hours): Temp Pulse Resp BP Pulse Ox 98.1 F 75 20 121/75 95 05/19/18 07:54 05/19/18 09:16 05/19/18 07:54 05/19/18 09:16 05/19/18 07:54 Intake and Output: 05/19/18 05/19/18 06:59 18:59 Intake Total 1350 Balance 1350 - Medications Medications: Current Medications Acetaminophen (Tylenol 325mg Tab) 650 mg PO Q6 PRN PRN Reason: TEMP>=99.5F Acetaminophen (Tylenol 650 Mg Supp) 650 mg RC Q6H PRN PRN Reason: TEMP>=99.5F Aspirin (Ecotrin) 81 mg PO DAILY [facility] Last Admin: 05/19/18 09:15 Dose: 81 mg Atorvastatin Calcium (Lipitor) 40 mg PO DIN [facility] Last Admin: 05/18/18 17:42 Dose: 40 mg Ergocalciferol (Drisdol 50,000 Intl Units Cap) 1 cap PO Q7D [facility] Last Admin: 05/16/18 12:40 Dose: 1 cap Fluticasone Propionate (Flonase) 1 actuation NS Q12 PRN PRN Reason: Allergy symptoms Heparin Sodium (Porcine) (Heparin) 5,000 units SC Q8 [facility]; Protocol Last Admin: 05/19/18 05:31 Dose: 5,000 units Sodium Chloride (Sodium Chloride 0.9%) 1,000 mls @ 125 mls/hr IV .Q8H [facility] Last Admin: 05/19/18 02:51 Dose: 125 mls/hr Loratadine (Claritin) 10 mg PO DAILY [facility] Last Admin: 05/19/18 09:14 Dose: 10 mg Metoprolol Tartrate (Lopressor) 25 mg PO BID [facility] Last Admin: 05/19/18 09:16 Dose: 25 mg Non-Formulary Medication (Emtricitabine [Emtriva]) 200 mg PO DAILY [facility] Last Admin: 05/19/18 09:17 Dose: Not Given Non-Formulary Medication (Entecavir [Entecavir]) 0.5 mg PO DAILY [facility] Last Admin: 05/19/18 09:16 Dose: 0.5 mg Non-Formulary Medication (Darunavir/Cobicistat [Prezcobix 800 Mg-150 Mg Tablet]) 1 tab PO DAILY [facility] Last Admin: 05/19/18 09:15 Dose: 1 tab Non-Formulary Medication (Emtricitabine/Tenofov Alafenam [Descovy 200-25 Mg Tablet]) 1 tab PO DAILY [facility] Last Admin: 05/19/18 09:15 Dose: 1 tab Ondansetron HCl (Zofran Inj) 4 mg IVP Q4H PRN PRN Reason: Nausea/Vomiting Pantoprazole Sodium (Protonix Ec Tab) 40 mg PO 0600 [facility] Last Admin: 05/19/18 05:33 Dose: 40 mg Tamsulosin HCl (Flomax) 0.4 mg PO DAILY [facility] Last Admin: 05/19/18 09:16 Dose: 0.4 mg Valacyclovir HCl (Valtrex) 500 mg PO [facility]; Protocol Last Admin: 05/18/18 21:30 Dose: 500 mg - Labs Labs: 05/19/18 06:00 05/19/18 06:00 PT 12.6 SECONDS (9.4-12.5) H 05/17/18 06:00 INR 1.09 05/17/18 06:00 APTT 29.5 Seconds (25.1-36.5) 05/17/18 06:00 - Constitutional Appears: Non-toxic, No Acute Distress - Head Exam Head Exam: ATRAUMATIC, NORMOCEPHALIC - Eye Exam Eye Exam: EOMI, PERRL - ENT Exam ENT Exam: Mucous Membranes Moist - Neck Exam Neck Exam: Full ROM - Cardiovascular Exam Cardiovascular Exam: REGULAR RHYTHM, +S1, +S2 - GI/Abdominal Exam GI & Abdominal Exam: Distended, Soft, Normal Bowel Sounds. absent: Firm, Rigid - Extremities Exam Extremities Exam: Full ROM. absent: Pedal Edema - Neurological Exam Neurological Exam: Alert, Awake, CN II-XII Intact, Normal Gait, Oriented x3 Neuro motor strength exam: Left Upper Extremity: 5, Right Upper Extremity: 5, Left Lower Extremity: 5, Right Lower Extremity: 5 - Psychiatric Exam Psychiatric exam: Normal Affect, Normal Mood. absent: Agitated, Anxious, Homicidal Ideation, Suicidal Ideation - Skin Skin Exam: Dry, Intact Assessment and Plan - Assessment and Plan (Free Text) Assessment: - Syncope - Gastroenteritis - HTN - Tachycardia - BINU in setting of CKD stage III - improved - Hyperuricemia - Rhabdomyolysis with elevated CK - improving - Transaminitis - Incomplete RBBB - Mild transaminitis - Hx of HIV 2/2 sexual contact, last known CD4 count 181 in 06/2017 - Hx of syphilis with previous treatment - Hx of chronic active hepatitis - Hx of Herpes Zoster - Hx of cystitis - Hx of mild AV and MV thickening - Syncope etiology workup pending, negative D-Dimer, imaging at this point bryan gn - Cardiology consulted and following with recommendations of syncope being less likely cardiac in origin - Neurology consulted and following with recommendations of syncope being likely due to vasovagal - ID consulted and following with recommendations of continue prezcobix and descovy and entecavir for chronic hepatitis B, recommend continuing vancomycin - Continue diet, DVT and GI prophylaxis of lovenox and protonix - C Echocardiogram: Good LV function, mildly dilated LA, mild TR and MR, no pulmonary HTN, EF >50% Head CT: Negative for acute intracranial abnormalities Brain MRI: negative for acute abnormalities Abd US: GI/DVT ppx - Protonix - Heparin Patient case and plan discussed with attending, Dr. Gaines
[2018-05-19] MEDS: metroNIDAZOLE IV 500 mg/100 ml 500 MG/100 ML BAG IVPB SCH ×2 (11:38→22:17)
--- NOTE | 2018-05-19 12:35 | CT ---
Date of service: 05/18/2018 PROCEDURE: CT Abdomen and Pelvis without intravenous contrast HISTORY: FOB+/ABD. DISTENTION COMPARISON: 08/14/2017 TECHNIQUE: Without contrast.. Contrast dose: Radiation dose: Total exam DLP = 1029.99 mGy-cm. This CT exam was performed using one or more of the following dose reduction techniques: Automated exposure control, adjustment of the mA and/or kV according to patient size, and/or use of iterative reconstruction technique. FINDINGS: LOWER THORAX: Unremarkable. LIVER: Unremarkable. No gross lesion or ductal dilatation. GALLBLADDER AND BILE DUCTS: Unremarkable. PANCREAS: Unremarkable. No gross lesion or ductal dilatation. SPLEEN: Unremarkable. ADRENALS: Unremarkable. No mass. KIDNEYS AND URETERS: Unremarkable. No hydronephrosis. No solid mass. 3 mm nonobstructing stone in the lower pole of the right kidney VASCULATURE: Unremarkable. No aortic aneurysm. No aortic atherosclerotic calcification or mural plaque present. BOWEL: Unremarkable. No obstruction. No gross mural thickening. APPENDIX: Unremarkable. Normal appendix. PERITONEUM: Unremarkable. No free fluid. No free air. LYMPH NODES: Unremarkable. No enlarged lymph nodes. BLADDER: Unremarkable. REPRODUCTIVE: Unremarkable. BONES: No acute fracture. OTHER FINDINGS: The report concurs with the preliminary [facility] report IMPRESSION: No acute intra-abdominal findings
[2018-05-19] MEDS: Aztreonam 1 Gm in NS 100mL 100 ML IVPB SCH ×2 (13:38→21:16)
--- NOTE | 2018-05-19 15:17 | PN ---
DATE: 05/19/2018 SUBJECTIVE: The patient is in bed, in no acute distress, nontoxic. PHYSICAL EXAMINATION VITAL SIGNS: Temperature is 98, blood pressure is 120/70, respiratory rate 20, and heart rate of 78. HEENT: Unremarkable. NECK: Supple. LUNGS: Have decreased breath sounds. HEART: Normal S1 and S2. ABDOMEN: Soft, nontender. LABORATORY EXAMINATION: Reveals a white count of 6.8, hemoglobin of 14 and platelets of 145,000. Chemistries are noted. Urinalysis is noted. RPR is weakly positive with 1:1 titer. FTA is positive. ASSESSMENT AND PLAN: A 73-year-old patient, who was awake and alert and gives a positive history of positive human immunodeficiency virus, on Prezcobix and Descovy, and on entecavir for chronic hepatitis B, who states that he has never had a history of syphilis. He is followed by Dr. Jamil Montes in [facility], located in [facility]. Upon discussion with his human immunodeficiency virus doctor, the patient has been tested for syphilis in the past intermittently and he has been negative in the past and he states that he has not been sexually active in the past 20 years, although he does not consider oral sex as sexually active and sexual activity. He states probably no sexual activity within the last year; although, his history is vague. With review of the patient's T cells, there was 181 T cells in June at 13%, I agree with Dr. Gaines in recommending a spinal tap to rule out neurosyphilis with current recommendations of human immunodeficiency virus patients and acquired immunodeficiency syndrome patients and this patient has acquired immunodeficiency syndrome by definition of less than 200 CD-4 count in June and 13% with questionable memory loss and would need a spinal tap and would sent for WBCs in the CSF VDRL. We will make further recommendation upon the duration of therapy based on protein, WBCs and the CSF VDRL. Currently, the etiology of the diarrhea is not clear with patient's stool culture with no growth and stool Clostridium difficile is negative antigen and negative toxin and we will also order blood cultures x2. We will discuss with primary medical doctor regarding gastrointestinal workup. Kenny Gonzalez MD
--- NOTE | 2018-05-19 20:58 | PN ---
DATE: 05/19/2018 SUBJECTIVE: The patient was seen in room 370, bed one. The patient is out of bed to chair. The patient is alert, awake, responsive. The patient states that his diarrhea has improved, but not resolved, and the patient only had two bowel movements in the last 24 hours. According to the patient, overnight nurses' notes were reviewed. The patient had a questionable auditory hallucination about the patient's aunt, for which, the patient was evaluated by the medical lab technologist and those symptoms resolved spontaneously and the patient does not have any auditory or visual hallucination. PHYSICAL EXAMINATION GENERAL: The patient, at present, is sitting in the chair, alert, awake, responsive. VITAL SIGNS: T-max 98.1, pulse 75, blood pressure 121/75, respirations 20, O2 saturation 95% to 100%. HEENT: Head examination normocephalic and atraumatic. HEENT examination shows pink conjunctivae. Anicteric sclerae. No oropharyngeal lesion. NECK: No neck rigidity. CHEST: Kyphosis. CARDIOVASCULAR: S1 and S2, regular rhythm. LUNGS: Examination shows no crackles, rales, or wheezing. ABDOMEN: Abdomen is protuberant. Positive bowel sounds. No palpable hepatosplenomegaly. GENITOURINARY: Male. RECTAL: Deferred. EXTREMITIES: No pitting edema. No calf numbness. No Homans' sign. NEUROLOGIC: The patient is alert, awake, oriented x3, is able to move upper and lower extremity without assistance. No auditory or visual hallucination or stigmata noted. MUSCULOSKELETAL: Examination shows a body mass index of 34. LABORATORY AND DIAGNOSTIC DATA: Diagnostic data on 05/19/2018 are as follows: WBC 6.8, hemoglobin and hematocrit 14.5/42, platelet 145. Sodium 140, potassium 4.2, chloride 109, CO2 24, anion gap 11, BUN 16, creatinine 1.1, GFR greater than 60, glucose 91, calcium 7.9, phosphorus 2.6, AST 76, ALT 66. CPK is down to 895 from a peak CPK of 1291. Rest of the LFTs are normal.. Stool for occult blood is positive. Hepatitis B surface antigen is reactive. Hepatitis B core IgM is reactive. The patient's CAT scan of the abdomen and pelvis was reviewed, which was done for the patient's diarrhea. CAT scan of the abdomen and pelvis shows 3 mm non-obstructing stone in the lower pole of the right kidney. The patient's CAT scan of the abdomen and pelvis from the night hawk reading was reviewed, which shows a thick-walled fluid for duodenum and jejunum and ileum compatible with enteritis and thick-walled filled colon with involvement of all segment compatible with diffuse pancolitis, small hiatal hernia noted. Impression on the CAT scan was enteritis and pancolitis, right middle lobe and right lower lobe atelectasis or scarring. IMPRESSION AND PLAN: 1. Pancolitis and enteritis involving duodenum, jejunum, and ileum with thick-walled fluid-filled duodenum and jejunum and ileum. 2. Thick-walled fluid-filled colon, involvement of all segment compatible with diffuse pancolitis. 3. Small hiatal hernia. 4. Right middle lobe and right lower lobe atelectasis versus scarring. 5. Right renal 3 mm non-obstructing nephrolithiasis. 6. Questionable transient auditory hallucination (resolved). 7. Leukocytosis with granulocytosis. 8. Erythrocytosis. 9. Elevated D-dimer of 388. 10. Acute kidney injury (resolved). 11. Hyperuricemia. 12. Hypomagnesemia. 13. Rhabdomyolysis with elevated creatine phosphokinase. 14. Elevated C-reactive protein. 15. Questionable prediabetes. 16. Decreased HDL of 26. 17. Hypovitaminosis D. 18. Microscopic hematuria. 19. Fecal occult blood positive, probably secondary to pancolitis. 20. Positive RPR of 1:1 with weakly reactive RPR with reactive FTA antibody. 21. Hepatitis B surface antigen reactive and hepatitis B core IgM antibody reactive. 22. 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 23. History of hepatitis B. 24. Hepatomegaly with hepatic steatosis and fatty infiltration of the liver with increased hepatic echogenicity. 25. Borderline splenomegaly. 26. Bilateral 20% to 39% proximal internal carotid artery stenosis. 27. Left ventricular ejection fraction of 56%. 28. Mildly dilated left atrium. 29. [id number] mitral regurgitation and [id number] tricuspid regurgitation. 30. Systemic inflammatory response syndrome. 31. History of prostatic hypertrophy and nephrolithiasis. 32. Hyperlipidemia. 33. Hypophosphatemia. 1. Recurrent syncope with near-syncope, etiology undetermined. 2. Questionable gastroenteritis with diarrhea. 3. Questionable systemic inflammatory response syndrome. 4. Sinus tachycardia with questionable incomplete right bundle-branch block versus right ventricular conduction delay. 5. Acute kidney injury (resolved). 6. Rhabdomyolysis with elevated CPK. 7. Transaminitis. 8. 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 9. Chronic active hepatitis B. 10. Systemic inflammatory response syndrome. 11. Chronic human immunodeficiency virus infection. 12. Obesity with elevated body mass index. 13. History of nephrolithiasis. 14. Questionable vasovagal syncope. 15. Leukocytosis, erythrocytosis, and granulocytosis. 16. Elevated D-dimer. 17. Status post acute kidney injury. 18. Hyperuricemia. 19. Rhabdomyolysis with elevated CPK. 20. Elevated C-reactive protein. 21. Hypophosphatemia, hypocalcemia. 22. Hypovitaminosis D. 23. Decreased HDL of 26. 24. Microscopic hematuria. 25. Fecal occult blood positive 26. Reactive fluorescent treponemal antibodies and weakly reactive RPR 1:1. 27. Hepatomegaly with hepatic steatosis and mild borderline splenomegaly. 28. 20% to 39% proximal internal carotid artery stenosis. 29. Left ventricular ejection fraction of 56% with mildly dilated left atrium. 30. Mild mitral regurgitation. 31. Mild tricuspid regurgitation. 32. Hypomagnesemia. 33. Sinus tachycardia with questionable incomplete right bundle-branch block versus right ventricular conduction delay. 36. History of herpes zoster. 34. Abdominal distention, etiology undetermined. 35. Persistent refractory diarrhea, etiology undetermined. 1. Syncope with history of recurrent syncope, etiology undetermined, versus questionable vasovagal syncope. 2. Thrombocytosis. 3. Relative thrombocytopenia. 4. Acute kidney injury (resolving). 5. Hypocalcemia. 6. Hypophosphatemia. 7. Rhabdomyolysis. 8. Elevated C-reactive protein. 9. Hyperuricemia. 10. Decreased HDL of 26. 11. Weakly positive RPR of 1:1. 12. Mild granulocytosis. 13. History of human immunodeficiency virus, acquired immune deficiency syndrome. 14. History of chronic active hepatitis B. 15. Questionable dehydration with acute kidney injury (resolving). 1. Syncopal episode x1 to 2 with near-syncope episode this morning. 2. Questionable and possible gastroenteritis with nausea and vomiting. 3. Hypertension. 4. Sinus tachycardia. 5. Questionable systemic inflammatory response syndrome. 6. Leukocytosis with granulocytosis. 7. Erythrocytosis. 8. Acute kidney injury with underlying chronic kidney disease, stage III. 9. Hyperglycemia. 10. Hyperuricemia. 11. Hypomagnesemia. 12. Questionable mild rhabdomyolysis with elevated creatine phosphokinase. 13. Incomplete right bundle-branch block and sinus tachycardia. 14. 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 15. History of herpes zoster. 16. Questionable and possible vasovagal syncope. PLAN: At this time, the patient has been ordered to repeat labs. GI consultation has been ordered. CURRENT CONSULTATION: 1. Cardiology. 2. Neurology. 3. Gastroenterology. 4. Infectious Disease. CURRENT MEDICATIONS: The patient is started on Azactam 1 g IV every 8 hours, Claritin 10 mg daily. The patient is on Prezcobix 800/150 mg daily, Drisdol 50,000 weekly, Ecotrin 81 mg daily, Emtriva 200 mg daily, Descovy 200/25 mg daily, Entecavir 0.5 mg daily, Flagyl 500 mg IV every 8 hours, Flomax 0.4 mg daily, Flonase 1 puff twice a day each nostril p.r.n., heparin 5000 subcu every 8 hours, Lipitor 40 mg daily, Lopressor 25 mg twice a day, Protonix 40 mg daily, IV fluid 0.9 normal saline at 125 mL an hour, Tylenol p.o. suppository every 6 hours p.r.n., Valtrex 500 mg h.s., Zofran 4 mg IV every 4 hours p.r.n. The patient has been ordered heart-healthy diet, out of bed, ad-colette, SCDs, BLAISE stocking. Repeat stool blood ordered. We are awaiting for further recommendation and evaluation by Infectious Disease, Neurology, and Gastroenterology. The patient updated about his condition, diagnosis, test results, recommendation. Need for further inpatient hospital treatment was explained to the patient at length and all questions concerned answered, which he acknowledged and understand. Dictated and electronically signed, not read. Andrés Gaines MD [facility]
[2018-05-20] MEDS: Aztreonam 1 Gm in NS 100mL 100 ML IVPB SCH ×3 (05:00→21:33)
[2018-05-20] MEDS: Pantoprazole 40 mg EC Tab PO SCH (05:01)
[2018-05-20] MEDS: metroNIDAZOLE IV 500 mg/100 ml 500 MG/100 ML BAG IVPB SCH ×3 (05:36→21:33)
[2018-05-20] MEDS: Sodium Chloride 0.9% 1,000 ML IV SCH ×3 (05:36→15:23)
[2018-05-20 06:42] LABS: ALB/GLOB RATIO 1.1 (1.1-1.8); ALBUMIN 3.1 g/dL (3.0-4.8); ALT/SGPT 71 U/L (7-56); AST/SGOT 68 U/L (17-59); BILIRUBIN,DIRECT 0.1 mg/dL (0.0-0.4); BLOOD UREA NITROGEN 15 mg/dL (7-21); CALCIUM 8.1 mg/dL (8.4-10.5); GFR NON-AFRICAN AMERICAN 54
[2018-05-20 07:27] LABS: CK MB% 0.9 % (2.5-3.0); CK-MB 5.5 ng/mL (0.0-3.6)
[2018-05-20] MEDS: DARUNAVIR PO SCH (10:17)
[2018-05-20] MEDS: COBICISTAT PO SCH (10:17)
[2018-05-20] MEDS: EMTRICITABINE 200 MG PO SCH (10:19)
[2018-05-20] MEDS: [UNRECOGNIZED DRUG - OTHER] PO SCH (10:19)
[2018-05-20] MEDS: ENTECAVIR 0.5 MG PO SCH (10:20)
--- NOTE | 2018-05-20 12:06 | PN ---
DATE: 05/20/2018 SUBJECTIVE: The patient is in bed, in no acute distress, nontoxic. PHYSICAL EXAMINATION: VITAL SIGNS: On exam, temperature is 98, blood pressure is 130/80, respiratory rate 20 and heart rate of 88. HEENT: Unremarkable. NECK: Supple. LUNGS: Have decreased breath sounds. HEART: Normal, S1 and S2. ABDOMEN: Soft. LABORATORY DATA: Reveals a white count of 6.8 and hemoglobin of 14. Chemistries reveals a BUN of 15, and creatinine of 1.3. Urinalysis is noted. Microbiology, C. diff antigen and toxin. ASSESSMENT AND PLAN: This is a 73-year-old patient who is awake and alert with positive human immunodeficiency virus and positive chronic hepatitis B and the patient has never had a history of syphilis and he too is followed by Dr. Jamil Montes, in [facility] and he is going to followup with his doctor. Sexual history, however he states he does have oral sex and at this time, I would recommend to do a spinal tap. I agree with Dr. Gaines to do a spinal tap, look for the number of WBCs in the spinal fluid and look for protein in the spinal fluid in addition to CSF VDRL and we will determinate if the patient needs treatment or not at least for neurosyphilis and if not, we will still treat the patient with once weekly therapy if neurosyphilis is ruled out; however, first I would recommend workup for neurosyphilis as per Dr. Gaines. We will follow with you. Kenny Gonzalez MD
--- NOTE | 2018-05-20 13:33 | CON ---
DATE: 05/20/2018 GASTROENTEROLOGY CONSULTATION REQUESTING PHYSICIAN: Dr. Gaines. REASON FOR CONSULTATION: I am asked to see this 73-year-old male with history of HIV disease, on antivirals with undetectable HIV viral load, who comes to the hospital with 1 day of nausea, vomiting and diarrhea. The patient states that he had a syncopal episode the night prior to admission and a near syncopal episode on the morning of admission. A god son who lives with him was ill with nausea, vomiting and diarrhea. His symptoms have resolved without any further nausea or vomiting. His diarrhea has become less watery. He had two loose bowel movements this morning. He denies any recent travel or use of any recent antibiotics. He did admit to some blood on the tissue paper after wiping [address] scan of the abdomen and pelvis performed in the emergency room revealed diffuse mural thickening of the small bowel and colon. He did have a colonoscopy over 20 years ago. PAST MEDICAL HISTORY: Notable for hypertension, HIV positivity, shingles, hepatitis B, DJD, kidney stones. PAST SURGICAL HISTORY: Notable for ureteral stent placement. SOCIAL HISTORY: He denies cigarette smoking or alcohol use. FAMILY HISTORY: Noncontributory. REVIEW OF SYSTEMS: A 14-point review of systems is notable for nausea, vomiting, diarrhea. MEDICATIONS AT HOME: Include darunavir/cobicistat, valacyclovir, Emtriva, Descovy, Entecavir, losartan, and hydrochlorothiazide. PHYSICAL EXAMINATION: GENERAL: Well-developed male, lying in bed, in no acute distress. VITAL SIGNS: Reveal temperature of 98.2, blood pressure 139/87, heart rate of 67. HEENT: Reveal sclerae to be white. Conjunctivae pink. NECK: Supple. CHEST/LUNGS: Clear. CARDIOVASCULAR: Heart exam reveals regular rate and rhythm. ABDOMEN: Soft, nontender. EXTREMITIES: Show no edema. GENITOURINARY: Rectal exam shows presence of external hemorrhoids. No mass or blood in the rectal wall. LABORATORY DATA: Reveal white blood cell count 6.8, hemoglobin 14.5, platelet count 145,000. Chemistries reveal chloride of 108, bicarbonate 26, AST 68, ALT 71, alkaline phosphatase 61, total bilirubin of 0.8. IMPRESSION: A 73-year-old male with history of human immunodeficiency virus positivity with undetectable viral load, on antiviral therapy, history of hepatitis B with 1 day of nausea, vomiting, diarrhea associated with syncope. I have been asked to see the patient for heme-positive stool. He has no overt rectal bleeding. He does have hemorrhoids. His nausea, vomiting and diarrhea are related to a gastroenteritis. He has a god son at home, ill with a similar illness. RECOMMENDATIONS: The patient is stable from a GI standpoint. I have instructed him to call my office for followup outpatient appointment for an elective colonoscopy. NOTE: Stool for C and S is negative. Stool for C. diff antigen and toxin are negative. Alessandro Wills MD
[2018-05-20] MEDS ORDERED: Lidocaine 1% Inj (20ml) IJ STA (15:10)
--- NOTE | 2018-05-20 15:52 | PCM.PROC ---
Procedures Attestation:: I certify that I have explained the specified Operation(s) or Procedure(s), risks, benefits and reasonable alternatives to the Patient and/or other person responsible. The opportunity was given to ask questions and all questions answered - Lumbar Puncture Consent Obtained: Written Consent Time Out Performed: Yes Patient Position: Upright Skin Prep: Povidone-Iodine 1% Local Anesthetic Used: Lidocaine 1% Spinal Needle Gauge: 24G Interspace Used: L4-L5 Fluid Initially Obtained: Clear Complications: None
[2018-05-20 19:02] LABS: FLUID TYPE SPINAL FLUID
[2018-05-20 19:44] LABS: CSF APPEARANCE CLEAR/COLORLESS (CLEAR); CSF VOLUME 1 mL (0-1)
--- NOTE | 2018-05-20 19:44 | PN ---
DATE: 05/20/2018 SUBJECTIVE: The patient is seen in Room 370, Bed 1. The patient is out of bed to chair.. The patient is ambulating. The patient states that his diarrhea has almost resolved since the patient was started on IV antibiotics. The patient denies any constipation. Denies any further syncope. Denies any further auditory hallucinations, which were reported on the night of 05/18/2018. PHYSICAL EXAMINATION: VITAL SIGNS: T-max is 98.2, pulse 67, blood pressure 152/98 to 139/87, respiration 20, O2 sat 96%. HEENT: Head normocephalic, atraumatic. [place] conjunctivae. Anicteric sclerae. No oropharyngeal lesion. NECK: No neck rigidity. CHEST: Kyphosis. LUNGS: No audible crackles, rales or wheezing. CARDIOVASCULAR: S1, S2, regular rhythm. ABDOMEN: Soft, protuberant. Positive bowel sounds. No palpable hepatosplenomegaly noted. GENITALIA: Male. RECTAL: Deferred. EXTREMITIES: No pitting edema, no calf tenderness, no Homans sign. NEUROLOGIC: The patient is alert, awake, oriented x3, is able to move upper and lower extremities without assistance. Gait examination is independent. VASCULAR: Palpable pulses. Plantars are downward. DTRs at 2+. MUSCULOSKELETAL: Body mass index of 35. DIAGNOSTICS: On 05/20/2018, sodium 138, potassium 4.1, chloride 108, CO2 of 26, anion gap 8, BUN 15, creatinine 1.3, GFR greater than 60, glucose 98, calcium 8.1, phosphorus 2.7, magnesium 1.9, AST 68, ALT 71. CPK is down to 591 from 1291. LFTs are normal. CSF total protein 52. The patient underwent a spinal tap today. Hepatitis B surface antigen neutralization is confirmed positive. Stool cultures are negative. Blood cultures are negative. IMPRESSION: 1. Syncope, etiology undetermined. 2. Episodic auditory hallucination. 3. 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 4. Human immunodeficiency virus and acquired immunodeficiency syndrome. 5. Hepatitis B surface antigen positive and hepatitis B core IgM antibody positive. 6. Chronic active hepatitis B. 7. Leukocytosis. 8. Granulocytosis. 9. Erythrocytosis. 10. Elevated D-dimer. 11. Acute kidney injury (resolved). 12. Hyperuricemia. 13. Hypocalcemia. 14. Hypophosphatemia. 15. Transaminitis. 16. Rhabdomyolysis with elevated CPK. 17. Prediabetes with hemoglobin A1c of 5.3. 18. Hypovitaminosis D. 19. Elevated C-reactive protein of greater than 15. 20. Hypovitaminosis D. 21. Obesity with elevated body mass index of 34. 22. Microscopic hematuria. 23. Stool occult blood positive. 24. Right middle lobe and right lower lobe atelectasis and scarring. 25. Right kidney lower pole 3 mm non-obstructing nephrolithiasis. 26. Possible enteritis with thick-walled fluid-filled duodenum and jejunum and ileum. 27. Diffuse pancolitis with thick-walled fluid-filled all the segments of colon. 28. Small hiatal hernia. 29. Fatty infiltration of the liver and hepatic steatosis. 30. Borderline splenomegaly. 31. Hepatic steatosis. 32. Left ventricular ejection fraction of 56%. 33. Aortic valve thickening, mitral valve thickening with mild mitral regurgitation and mild to trace tricuspid regurgitation. 34. Status post lumbar puncture and spinal tap. 35. Enteritis and colitis. 36. Obesity with elevated body mass index. 37. Episode of auditory hallucination. 38. Rhabdomyolysis. 1. Pancolitis and enteritis involving duodenum, jejunum, and ileum with thick-walled fluid-filled duodenum and jejunum and ileum. 2. Thick-walled fluid-filled colon, involvement of all segment compatible with diffuse pancolitis. 3. Small hiatal hernia. 4. Right middle lobe and right lower lobe atelectasis versus scarring. 5. Right renal 3 mm non-obstructing nephrolithiasis. 6. Questionable transient auditory hallucination (resolved). 7. Leukocytosis with granulocytosis. 8. Erythrocytosis. 9. Elevated D-dimer of 388. 10. Acute kidney injury (resolved). 11. Hyperuricemia. 12. Hypomagnesemia. 13. Rhabdomyolysis with elevated creatine phosphokinase. 14. Elevated C-reactive protein. 15. Questionable prediabetes. 16. Decreased HDL of 26. 17. Hypovitaminosis D. 18. Microscopic hematuria. 19. Fecal occult blood positive, probably secondary to pancolitis. 20. Positive RPR of 1:1 with weakly reactive RPR with reactive FTA antibody. 21. Hepatitis B surface antigen reactive and hepatitis B core IgM antibody reactive. 22. 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 23. History of hepatitis B. 24. Hepatomegaly with hepatic steatosis and fatty infiltration of the liver with increased hepatic echogenicity. 25. Borderline splenomegaly. 26. Bilateral 20% to 39% proximal internal carotid artery stenosis. 27. Left ventricular ejection fraction of 56%. 28. Mildly dilated left atrium. 29. Ixxx-ek-vaecd mitral regurgitation and ubxy-aj-ulyve tricuspid regurgitation. 30. Systemic inflammatory response syndrome. 31. History of prostatic hypertrophy and nephrolithiasis. 32. Hyperlipidemia. 33. Hypophosphatemia. 1. Recurrent syncope with near-syncope, etiology undetermined. 2. Questionable gastroenteritis with diarrhea. 3. Questionable systemic inflammatory response syndrome. 4. Sinus tachycardia with questionable incomplete right bundle-branch block versus right ventricular conduction delay. 5. Acute kidney injury (resolved). 6. Rhabdomyolysis with elevated CPK. 7. Transaminitis. 8. 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 9. Chronic active hepatitis B. 10. Systemic inflammatory response syndrome. 11. Chronic human immunodeficiency virus infection. 12. Obesity with elevated body mass index. 13. History of nephrolithiasis. 14. Questionable vasovagal syncope. 15. Leukocytosis, erythrocytosis, and granulocytosis. 16. Elevated D-dimer. 17. Status post acute kidney injury. 18. Hyperuricemia. 19. Rhabdomyolysis with elevated CPK. 20. Elevated C-reactive protein. 21. Hypophosphatemia, hypocalcemia. 22. Hypovitaminosis D. 23. Decreased HDL of 26. 24. Microscopic hematuria. 25. Fecal occult blood positive 26. Reactive fluorescent treponemal antibodies and weakly reactive RPR 1:1. 27. Hepatomegaly with hepatic steatosis and mild borderline splenomegaly. 28. 20% to 39% proximal internal carotid artery stenosis. 29. Left ventricular ejection fraction of 56% with mildly dilated left atrium. 30. Mild mitral regurgitation. 31. Mild tricuspid regurgitation. 32. Hypomagnesemia. 33. Sinus tachycardia with questionable incomplete right bundle-branch block versus right ventricular conduction delay. 36. History of herpes zoster. 34. Abdominal distention, etiology undetermined. 35. Persistent refractory diarrhea, etiology undetermined. 1. Syncope with history of recurrent syncope, etiology undetermined, versus questionable vasovagal syncope. 2. Thrombocytosis. 3. Relative thrombocytopenia. 4. Acute kidney injury (resolving). 5. Hypocalcemia. 6. Hypophosphatemia. 7. Rhabdomyolysis. 8. Elevated C-reactive protein. 9. Hyperuricemia. 10. Decreased HDL of 26. 11. Weakly positive RPR of 1:1. 12. Mild granulocytosis. 13. History of human immunodeficiency virus, acquired immune deficiency syndrome. 14. History of chronic active hepatitis B. 15. Questionable dehydration with acute kidney injury (resolving). 1. Syncopal episode x1 to 2 with near-syncope episode this morning. 2. Questionable and possible gastroenteritis with nausea and vomiting. 3. Hypertension. 4. Sinus tachycardia. 5. Questionable systemic inflammatory response syndrome. 6. Leukocytosis with granulocytosis. 7. Erythrocytosis. 8. Acute kidney injury with underlying chronic kidney disease, stage III. 9. Hyperglycemia. 10. Hyperuricemia. 11. Hypomagnesemia. 12. Questionable mild rhabdomyolysis with elevated creatine phosphokinase. 13. Incomplete right bundle-branch block and sinus tachycardia. 14. 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 15. History of herpes zoster. 16. Questionable and possible vasovagal syncope. PLAN: At this time, the patient underwent a spinal tap with Dr. Monahan. The patient has been ordered repeat CMP, CPK, LFTs, magnesium phosphorus. The patient has been ordered CSF arbovirus, CSF herpes titers, CSF lactic acid, CSF LDH, CSF Lyme, CSF toxoplasma, CSF VDRL, CSF West Nile, CSF cell count. CSF HIV RNA has been ordered. Mycoplasma CSF has been ordered. CSF cultures have been ordered by Neurology. CURRENT MEDICATIONS: 1. Azactam 1 g IV every 8 hours. 2. Claritin 10 mg daily. 3. Prezcobix 800/150 one tablet daily. 4. Drisdol 50,000 units weekly. 6. Ecotrin 81 mg daily. 7. Emtriva 200 mg daily. 8. Descovy 200/25 one tablet daily. 9. Entecavir 0.5 mg daily. 10. Flagyl 500 mg IV every 8 hours. 11. Flomax 0.4 mg daily. 12. Flonase 1 puff twice a day p.r.n. 13. Heparin 5000 subcu every 8 hours. 14. Lipitor 40 mg daily. 15. Lopressor 25 mg twice a day. 16. Protonix 40 mg daily. 17. IV fluid 0.9 normal saline at 125 mL/hour. 18. Tylenol 650 mg p.o. suppository every 6 hours p.r.n. 19. Valtrex 500 mg h.s. 20. Zofran 4 mg IV every 4 hours p.r.n. At present, the patient will be continued on the above therapeutic intervention. We will await further decisions and recommendations by Infectious Disease regarding initiation of the treatment for possible neurosyphilis. The patient has been extensively updated about his condition, diagnosis, and test results. Recommendation by all the physicians involved in the care of the patient has been extensively explained to the patient at length and all questions and concerns answered. Dictated and electronically signed, not read. Andrés Gaines MD [id number]
--- NOTE | 2018-05-20 22:31 | PN ---
DATE: 05/20/2018 SUBJECTIVE: This is a 73-year-old white male with HIV, chronic hepatitis B, and has a history of syphilis. Spinal tap this morning was done. The patient tolerated the procedure. OBJECTIVE: NEUROLOGIC: The patient is awake, alert, and oriented to x3. No aphasia. Cranial nerves II through XII are tested. Pupils reactive. EOM intact. Visual field full. No facial asymmetry. Tongue midline. Motor Examination: Moves all the extremities equally. Tone normal. Deep tendon reflexes are 1+. Both plantars are downgoing. Sensory appears intact. Cerebellar gait deferred. IMPRESSION AND PLAN: Spinal tap was done. Waiting for the results. Continue present management. We will follow up. Erik Sultana MD
[2018-05-21] MEDS: metroNIDAZOLE IV 500 mg/100 ml 500 MG/100 ML BAG IVPB SCH (06:09)
[2018-05-21] MEDS: Aztreonam 1 Gm in NS 100mL 100 ML IVPB SCH (06:09)
[2018-05-21] MEDS: Pantoprazole 40 mg EC Tab PO SCH (06:09)
[2018-05-21] MEDS: Sodium Chloride 0.9% 1,000 ML IV SCH ×3 (06:10→22:44)
[2018-05-21 07:32] LABS: ALB/GLOB RATIO 1.2 (1.1-1.8); ALBUMIN 3.6 g/dL (3.0-4.8); ALT/SGPT 76 U/L (7-56); AST/SGOT 70 U/L (17-59); BILIRUBIN,DIRECT 0.2 mg/dL (0.0-0.4); BLOOD UREA NITROGEN 15 mg/dL (7-21); CALCIUM 8.9 mg/dL (8.4-10.5); GFR NON-AFRICAN AMERICAN 60
[2018-05-21 07:59] LABS: CK MB% 1.4 % (2.5-3.0); CK-MB 6.9 ng/mL (0.0-3.6)
--- NOTE | 2018-05-21 09:10 | PN ---
DATE: 05/21/2018 SUBJECTIVE: The patient is in bed, in no acute distress, nontoxic. OBJECTIVE: VITAL SIGNS: Temperature is 98, blood pressure is 130/80, respiratory rate 20. HEENT: Unremarkable. NECK: Supple. LUNGS: Have decreased breath sounds. HEART: Normal S1, S2. ABDOMEN: Soft. LABORATORY EXAMINATION: Reveals a white count of 6.8, hemoglobin of 14, platelets of 145,000 and chemistries reveals a BUN of 15, creatinine of 1.5. The patient had a spinal fluid has 1 WBC, the protein in the spinal fluid is not available at this time. The blood cultures are no growth. Stool cultures are no growth. Dr. Sultana's note is reviewed, rather Dr. Dennis Monahan's note is reviewed. ASSESSMENT AND PLAN: A 73-year-old male who has positive human immunodeficiency virus and acquired immunodeficiency deficiency syndrome, has chronic hepatitis B who gives a history of no history of syphilis in the past, is followed by Dr. Jamli Montes in [facility] and called him and Dr. the patient has never had a positive syphilis test in the past. He has had intermittent testing, now has a low titer 1:1 titer positive positive FTA and because of extensive sexual history in this patient, the patient had a spinal tap. Right now, the WBC in the spinal fluid is one. We will check on protein and cerebrospinal fluid [facility]ene[facility] disease research laboratory. The patient's diarrhea is resolved and the patient developed a new rash around his nose. HE IS ALLERGIC TO PENICILLIN, TYPE OF ALLERGY IS DESCRIBED TYPE 1. We will discontinue the Flagyl and the Azactam, the patient is no longer having diarrhea. Awaiting for cerebrospinal fluid findings. Kenny Gonzalez MD
[2018-05-21] MEDS: EMTRICITABINE 200 MG PO SCH (09:40)
[2018-05-21] MEDS: [UNRECOGNIZED DRUG - OTHER] PO SCH (09:49)
[2018-05-21] MEDS: ENTECAVIR 0.5 MG PO SCH (09:49)
[2018-05-21] MEDS: DARUNAVIR PO SCH (10:50)
[2018-05-21] MEDS: COBICISTAT PO SCH (10:50)
[2018-05-21] MEDS: Hydrocortisone 1% Cream (30 GM) TOP SCH ×3 (11:54→21:11)
[2018-05-21 12:04] LABS: BASO # 0.02 K/mm3 (0.0-2.0); BASO % 0.3 % (0.0-3.0); EOS # 0.3 (0.0-0.7); EOS % 3.9 % (1.5-5.0); GRAN # 3.78 (1.4-6.5); GRAN % 52.4 % (50.0-68.0); HEMOGLOBIN 15.3 g/dL (14.0-18.0); LYMPH # 2.3 (1.2-3.4); LYMPH % 31.5 % (22.0-35.0); MEAN CELL VOLUME 101.7 fl (80.0-105.0); MEAN CORPUSCULAR HEMOGLOBIN 36.3 pg (25.0-35.0); MEAN CORPUSCULAR HGB CONC 35.7 g/dl (31.0-37.0); MEAN PLATELET VOLUME 10.6 fl (7.0-11.0); MONO # 0.9 (0.1-0.6); MONO % 11.9 % (1.0-6.0); RBC 4.21 10^6/uL (3.5-6.1); RED CELL DISTRIBUTION WIDTH 12.8 % (11.5-14.5); WHITE BLOOD COUNT 7.2 10^3/uL (4.5-11.0)
--- NOTE | 2018-05-21 13:37 | PN ---
DATE: 05/21/2018 LOCATION: The patient is seen in room 370, bed 1. SUBJECTIVE: The patient is sitting up in the bed, complaining of rash around the nasolabial fold. The patient denies any itching. The patient had a spinal tap yesterday which he tolerated well. The patient also reports that the diarrhea has subsided significantly. PHYSICAL EXAMINATION VITAL SIGNS: T-max 98.4, pulse 76, blood pressure 152/96, respirations 20, O2 sat 96%. HEENT: Head examination; normocephalic, atraumatic. Marlette conjunctivae. Anicteric sclerae. No oropharyngeal lesion. Dry oral mucosa. NECK: No neck rigidity. CHEST: Kyphosis. LUNGS: Shows no audible crackles, rales or wheezing. CARDIOVASCULAR: S1, S2. Regular rhythm. ABDOMEN: Soft, protuberant. Positive bowel sounds. GENITALIA: Male. RECTAL: Deferred. EXTREMITIES: Shows no pitting edema, no calf tenderness, no Homans sign. NEUROLOGIC: The patient is alert, awake, oriented x3. Motor strength 5/5. Cranial nerves II-XII intact. Gait examination is independent. VASCULAR: Palpable pulses. SKIN: Positive erythematous rash noted around the nasolabial fold . DIAGNOSTIC DATA: CBC pending from today. Chemistry; sodium 139, potassium 4.3, chloride 108, CO2 of 22, anion gap 13, BUN 15, creatinine 1.2, GFR greater than 60, glucose 93. Calcium 8.9, phosphorus 2.6, magnesium 1.7. AST is 70, ALT is 76. CPK is down to 476. Rest of the LFTs are normal. IMPRESSION AND PLAN: 1. Syncope, etiology undetermined versus vasovagal syncope, etiology undetermined. 2. Right middle lobe, right lower lobe atelectasis and scarring. 3. Right kidney 3 mm non-obstructing nephrolithiasis. 4. Enteritis with thick-walled fluid-filled duodenum, jejunum, and ileum. 5. Diffuse pancolitis with thick-walled fluid-filled colon with involvement of all segments of the colon. 6. Small hiatal hernia. 7. Hepatic steatosis with fatty liver and hepatomegaly. 8. Splenomegaly. 9. Hypertension. 10. Morbid obesity with elevated body mass index of 33.5. 11. Leukocytosis with granulocytosis. 12. Status post erythrocytosis. 13. Elevated D-dimer. 14. Acute kidney injury (resolved). 15. Rhabdomyolysis with elevated CPK. 16. Hypophosphatemia. 17. Transaminitis. 18. Hypovitaminosis D. 19. History of human immunodeficiency virus, acquired immunodeficiency syndrome. 20. History of chronic active hepatitis B. 21. Elevated C-reactive protein. 22. Hyperuricemia. 23. Prediabetes with hemoglobin A1c of 5.3. 24. Microscopic hematuria. 25. Stool-occult blood positive. 26. Reactive FTA antibody and reactive RPR with a titer of 1:1. 27. Reactive hepatitis B surface antigen, reactive hepatitis B surface antigen neutralization, and reactive hepatitis B core IgM antibody. 28. Status post lumbar puncture and spinal tap. 29. Allergic rash of the nasolabial fold and facial allergic rash, etiology undetermined. Plan at this time, the patient has been ordered serial labs. The patient has been ordered allergy panel. The patient has been ordered IgE. We are awaiting for CSF cultures. Current medication. 30. Insomnia. 31. Contact allergic dermatitis of the face, etiology undetermined. 1. Syncope, etiology undetermined. 2. Episodic auditory hallucination. 3. 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 4. Human immunodeficiency virus and acquired immunodeficiency syndrome. 5. Hepatitis B surface antigen positive and hepatitis B core IgM antibody positive. 6. Chronic active hepatitis B. 7. Leukocytosis. 8. Granulocytosis. 9. Erythrocytosis. 10. Elevated D-dimer. 11. Acute kidney injury (resolved). 12. Hyperuricemia. 13. Hypocalcemia. 14. Hypophosphatemia. 15. Transaminitis. 16. Rhabdomyolysis with elevated CPK. 17. Prediabetes with hemoglobin A1c of 5.3. 18. Hypovitaminosis D. 19. Elevated C-reactive protein of greater than 15. 20. Hypovitaminosis D. 21. Obesity with elevated body mass index of 34. 22. Microscopic hematuria. 23. Stool occult blood positive. 24. Right middle lobe and right lower lobe atelectasis and scarring. 25. Right kidney lower pole 3 mm non-obstructing nephrolithiasis. 26. Possible enteritis with thick-walled fluid-filled duodenum and jejunum and ileum. 27. Diffuse pancolitis with thick-walled fluid-filled all the segments of colon. 28. Small hiatal hernia. 29. Fatty infiltration of the liver and hepatic steatosis. 30. Borderline splenomegaly. 31. Hepatic steatosis. 32. Left ventricular ejection fraction of 56%. 33. Aortic valve thickening, mitral valve thickening with mild mitral regurgitation and mild to trace tricuspid regurgitation. 34. Status post lumbar puncture and spinal tap. 35. Enteritis and colitis. 36. Obesity with elevated body mass index. 37. Episode of auditory hallucination. 38. Rhabdomyolysis. 1. Pancolitis and enteritis involving duodenum, jejunum, and ileum with thick-walled fluid-filled duodenum and jejunum and ileum. 2. Thick-walled fluid-filled colon, involvement of all segment compatible with diffuse pancolitis. 3. Small hiatal hernia. 4. Right middle lobe and right lower lobe atelectasis versus scarring. 5. Right renal 3 mm non-obstructing nephrolithiasis. 6. Questionable transient auditory hallucination (resolved). 7. Leukocytosis with granulocytosis. 8. Erythrocytosis. 9. Elevated D-dimer of 388. 10. Acute kidney injury (resolved). 11. Hyperuricemia. 12. Hypomagnesemia. 13. Rhabdomyolysis with elevated creatine phosphokinase. 14. Elevated C-reactive protein. 15. Questionable prediabetes. 16. Decreased HDL of 26. 17. Hypovitaminosis D. 18. Microscopic hematuria. 19. Fecal occult blood positive, probably secondary to pancolitis. 20. Positive RPR of 1:1 with weakly reactive RPR with reactive FTA antibody. 21. Hepatitis B surface antigen reactive and hepatitis B core IgM antibody reactive. 22. 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 23. History of hepatitis B. 24. Hepatomegaly with hepatic steatosis and fatty infiltration of the liver with increased hepatic echogenicity. 25. Borderline splenomegaly. 26. Bilateral 20% to 39% proximal internal carotid artery stenosis. 27. Left ventricular ejection fraction of 56%. 28. Mildly dilated left atrium. 29. [id number] mitral regurgitation and [id number] tricuspid regurgitation. 30. Systemic inflammatory response syndrome. 31. History of prostatic hypertrophy and nephrolithiasis. 32. Hyperlipidemia. 33. Hypophosphatemia. 1. Recurrent syncope with near-syncope, etiology undetermined. 2. Questionable gastroenteritis with diarrhea. 3. Questionable systemic inflammatory response syndrome. 4. Sinus tachycardia with questionable incomplete right bundle-branch block versus right ventricular conduction delay. 5. Acute kidney injury (resolved). 6. Rhabdomyolysis with elevated CPK. 7. Transaminitis. 8. 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 9. Chronic active hepatitis B. 10. Systemic inflammatory response syndrome. 11. Chronic human immunodeficiency virus infection. 12. Obesity with elevated body mass index. 13. History of nephrolithiasis. 14. Questionable vasovagal syncope. 15. Leukocytosis, erythrocytosis, and granulocytosis. 16. Elevated D-dimer. 17. Status post acute kidney injury. 18. Hyperuricemia. 19. Rhabdomyolysis with elevated CPK. 20. Elevated C-reactive protein. 21. Hypophosphatemia, hypocalcemia. 22. Hypovitaminosis D. 23. Decreased HDL of 26. 24. Microscopic hematuria. 25. Fecal occult blood positive 26. Reactive fluorescent treponemal antibodies and weakly reactive RPR 1:1. 27. Hepatomegaly with hepatic steatosis and mild borderline splenomegaly. 28. 20% to 39% proximal internal carotid artery stenosis. 29. Left ventricular ejection fraction of 56% with mildly dilated left atrium. 30. Mild mitral regurgitation. 31. Mild tricuspid regurgitation. 32. Hypomagnesemia. 33. Sinus tachycardia with questionable incomplete right bundle-branch block versus right ventricular conduction delay. 36. History of herpes zoster. 34. Abdominal distention, etiology undetermined. 35. Persistent refractory diarrhea, etiology undetermined. 1. Syncope with history of recurrent syncope, etiology undetermined, versus questionable vasovagal syncope. 2. Thrombocytosis. 3. Relative thrombocytopenia. 4. Acute kidney injury (resolving). 5. Hypocalcemia. 6. Hypophosphatemia. 7. Rhabdomyolysis. 8. Elevated C-reactive protein. 9. Hyperuricemia. 10. Decreased HDL of 26. 11. Weakly positive RPR of 1:1. 12. Mild granulocytosis. 13. History of human immunodeficiency virus, acquired immune deficiency syndrome. 14. History of chronic active hepatitis B. 15. Questionable dehydration with acute kidney injury (resolving). 1. Syncopal episode x1 to 2 with near-syncope episode this morning. 2. Questionable and possible gastroenteritis with nausea and vomiting. 3. Hypertension. 4. Sinus tachycardia. 5. Questionable systemic inflammatory response syndrome. 6. Leukocytosis with granulocytosis. 7. Erythrocytosis. 8. Acute kidney injury with underlying chronic kidney disease, stage III. 9. Hyperglycemia. 10. Hyperuricemia. 11. Hypomagnesemia. 12. Questionable mild rhabdomyolysis with elevated creatine phosphokinase. 13. Incomplete right bundle-branch block and sinus tachycardia. 14. 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 15. History of herpes zoster. 16. Questionable and possible vasovagal syncope. Plan at this time, the patient is also complaining of insomnia. The patient has been ordered Ambien 5 mg at bedtime as needed. . The patient is on Claritin 10 mg daily. The patient has been ordered hydrocortisone 1% cream to the facial area every eight hours. The patient is on Prezcobix one tablet daily, Drisdol 50,000 units weekly, Ecotrin 81 mg daily, Emtriva 200 mg daily, Descovy 200/25 tablet daily, entecavir 0.5 mg daily, Flomax 0.4 mg daily, Flonase nasal spray every 12 hours as needed, heparin 5000 subcutaneously every eight hours, Lipitor 40 mg daily, Lopressor 25 mg twice a day, Pepcid 20 mg twice a day for 10 doses, Protonix 40 mg daily, IV fluid normal saline at 125 mL an hour. The patient is given a dose of Solu-Medrol 125 once, Tylenol 650 every six hours as needed, Valtrex 500 mg at bedtime, Zofran 4 mg IV every four hours as needed. At present, we are awaiting for final CSF cultures and since the patient has type 1 PENICILLIN allergy, if the CSF cultures are positive for syphilis, the patient will require desensitization in ICU which has been explained to the patient at length and all questions concerned answered. Dictated and electronically signed, not read. Andrés Gaines MD MTDD
[2018-05-21 13:49] LABS: BARBITURATES, UR NEGATIVE (NEGATIVE); BENZODIAZEPINES, UR NEGATIVE (NEGATIVE); OPIATES, UR NEGATIVE (NEGATIVE); PHENCYCLIDINE, UR NEGATIVE (NEGATIVE)
[2018-05-22] MEDS: Pantoprazole 40 mg EC Tab PO SCH (05:48)
[2018-05-22] MEDS: Hydrocortisone 1% Cream (30 GM) TOP SCH ×3 (05:50→22:00)
[2018-05-22] MEDS: Sodium Chloride 0.9% 1,000 ML IV SCH (07:02)
[2018-05-22 07:06] LABS: ALB/GLOB RATIO 1.2 (1.1-1.8); ALBUMIN 3.8 g/dL (3.0-4.8); ALT/SGPT 77 U/L (7-56); AST/SGOT 60 U/L (17-59); BILIRUBIN,DIRECT 0.2 mg/dL (0.0-0.4); BLOOD UREA NITROGEN 19 mg/dL (7-21); CALCIUM 8.7 mg/dL (8.4-10.5); GFR NON-AFRICAN AMERICAN > 60
[2018-05-22] MEDS: EMTRICITABINE 200 MG PO SCH (09:22)
[2018-05-22] MEDS: [UNRECOGNIZED DRUG - OTHER] PO SCH (09:22)
[2018-05-22] MEDS: DARUNAVIR PO SCH (09:23)
[2018-05-22] MEDS: ENTECAVIR 0.5 MG PO SCH (09:23)
[2018-05-22] MEDS: COBICISTAT PO SCH (09:23)
--- NOTE | 2018-05-22 11:43 | PN ---
DATE: 05/22/2018 LOCATION: Patient is in room 370, bed 1, [facility] in [place]. SUBJECTIVE: The patient is admitted with a history of syncope. Patient has blackouts, he says a couple of times. Patient has significant medical history. He is being treated for hypertension, hyperlipidemia. Patient has history of herpes zoster infection in the past. Patient has history of NASAL ALLERGY, benign prostatic hyperplasia, renal calculi. Patient has lung examination, atelectasis of the lung. Patient has history of HIV. Patient has history of AIDS infection. RPR was found to be trace positive. Patient has positive chronic hepatitis B. PHYSICAL EXAMINATION GENERAL: He presents lying down in bed. Answers all questions. He is aware of his medical condition and need for test. VITAL SIGNS: Pulse is 73, blood pressure 129/74, patient's respirations are 20, O2 saturation 96% on room air. HEENT: The patient's head is normocephalic. NECK: The thyroid is not enlarged. No lymphadenopathy. LUNGS: Trachea central. Breath sounds are vesicular, diminished bilateral. HEART: Normal sinus rhythm. Patient has no murmurs, no rubs. ABDOMEN: Soft. Liver and spleen is not palpable. Clinically, no ascites. CENTRAL NERVOUS SYSTEM: Patient is conscious, rational, and oriented, and answers all questions. Seem to be very jovial and pleasant. LABORATORY DATA: Patient's blood work; while in the hospital, recent blood work shows a hemoglobin of 15.3. His chemistry; patient has a blood sugar of 126. Renal functions are in the normal range. His liver functions are mildly abnormal, this could be due to the hepatitis B chronic infection, and patient had a spinal tap, test results are not available, especially to confirm the diagnosis of syphilis, luetic infection. MEDICATIONS: At this time; patient is on Ambien 5 mg for sleep, he gets Claritin 10 mg daily, patient gets hydrocortisone cream for allergy on the skin, patient gets aspirin 81 mg daily, patient gets Flomax 0.4 mg for benign prostatic hyperplasia, heparin prophylaxis, Lipitor 40 mg daily, metoprolol 25 mg twice a day, Pepcid 20 mg oral daily for reflux esophagitis, gastritis. ASSESSMENT AND PLAN: Patient's overall prognosis is guarded, condition is clinically improving. We need confirmation of his serology regarding RPR. Max Kahn MD [facility] # [id number]
--- NOTE | 2018-05-22 13:20 | PN ---
DATE: 05/22/2018 SUBJECTIVE: The patient is in bed in no acute distress. Nontoxic. PHYSICAL EXAMINATION: VITAL SIGNS: Temperature is 97, blood pressure is 147/80, respiratory rate of 18, heart rate of 76. HEENT: Unremarkable. NECK: Supple. LUNGS: Decreased breath sounds. HEART: Normal S1, S2. LABORATORY DATA: Examination reveals a white count of 7.2, hemoglobin of 16, platelets of 164. Chemistries reveals BUN 19, creatinine of 1.1, white count of CSF is 1, protein is 52 and CSF protein is 52. The CSF-VDRL is pending. ASSESSMENT AND PLAN: This is a 73-year-old male with positive human immunodeficiency virus and acquired immunodeficiency syndrome with chronic hepatitis B surface antigen positive who gives no history of syphilis in the past. He is followed by Dr. Jamil Montes in [facility] which who I am familiar with. The patient had never been tested positive for syphilis in the past. His titer is only 1:1 positive titer with a positive FDA. He has had extensive sexual histories in [facility], multiple sexual partners in the past in various nightclubs and so he is at high risk for both syphilis and neurosyphilis because of his age and currently at this time, his diarrhea is resolved. Etiology of his colitis is unknown. Cultures are negative. He is off of antibiotics and CSF WBC is only 1 with a normal protein of 52. 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 b.i.d. x28 days since he is allergic to penicillin. If, however, his VDRL-CSF is positive, which I highly doubt, since the WBC in the CSF is only 1 and the protein is 52. He will need to be desensitized and treated with penicillin as neurosyphilis. We will follow with you at this time. Case discussed with . Kenny Gonzalez MD
[2018-05-22] MEDS: Magnesium Sulfate 2 gm/50 ml 2 GM/50 ML BAG IVPB SCH ×2 (14:47→16:29)
[2018-05-22 14:54] LABS: CK MB% 1.8 % (2.5-3.0); CK-MB 5.7 ng/mL (0.0-3.6)
[2018-05-22] MEDS ORDERED: Aztreonam 1 Gm in NS 100mL 100 ML IVPB STA (16:57)
[2018-05-22] MEDS: Aztreonam 1 Gm in NS 100mL 100 ML IVPB SCH (21:40)
[2018-05-23] MEDS: Aztreonam 1 Gm in NS 100mL 100 ML IVPB SCH (05:26)
[2018-05-23] MEDS: Pantoprazole 40 mg EC Tab PO SCH (05:27)
[2018-05-23] MEDS: Sodium Chloride 0.9% 1,000 ML IV SCH ×4 (05:28→05:35)
[2018-05-23] MEDS: Hydrocortisone 1% Cream (30 GM) TOP SCH ×2 (05:29→14:31)
[2018-05-23 06:47] LABS: ALB/GLOB RATIO 1.1 (1.1-1.8); ALBUMIN 3.6 g/dL (3.0-4.8); ALT/SGPT 88 U/L (7-56); AST/SGOT 70 U/L (17-59); BILIRUBIN,DIRECT 0.3 mg/dL (0.0-0.4); BLOOD UREA NITROGEN 24 mg/dL (7-21); CALCIUM 8.6 mg/dL (8.4-10.5); GFR NON-AFRICAN AMERICAN 60
[2018-05-23 07:04] LABS: CK MB% 1.5 % (2.5-3.0); CK-MB 7.1 ng/mL (0.0-3.6)
[2018-05-23 08:47] VITALS: RESP 18; TEMP 98.4; O2SAT 98
--- NOTE | 2018-05-23 09:29 | PN ---
DATE: 05/23/2018 SUBJECTIVE: The patient is asymptomatic. PHYSICAL EXAMINATION: VITAL SIGNS: Stable. NECK: Negative JVD. LUNGS: Without rales. HEART: S1 and S2. EXTREMITIES: Without edema. LABORATORY DATA: Hemoglobin is 15.3. BUN and creatinine are unremarkable. IMPRESSION: 1. Syncope secondary to dehydration. 2. History of human immunodeficiency virus. 3. Coronary artery disease. PLAN: Given these findings, the patient is hemodynamically stable from a cardiac perspective. Wilfredo Stewart MD
[2018-05-23 09:31] LABS: 23 KD (IGG) BAND Nonreactive
[2018-05-23] MEDS: COBICISTAT PO SCH (09:59)
[2018-05-23] MEDS: DARUNAVIR PO SCH (09:59)
[2018-05-23] MEDS: [UNRECOGNIZED DRUG - OTHER] PO SCH (10:00)
[2018-05-23] MEDS: ENTECAVIR 0.5 MG PO SCH ×2 (10:01→10:09)
[2018-05-23] MEDS: EMTRICITABINE 200 MG PO SCH (10:02)
[2018-05-23 10:06] VITALS: BP 140/76; PULSE 70
[2018-05-23] MEDS: Ergocalciferol 50,000 Intl Units Cap PO SCH (12:24)
--- NOTE | 2018-05-23 13:51 | CP.PCM.PN ---
Subjective - Date & Time of Evaluation Date of Evaluation: 05/23/18 Time of Evaluation: 09:25 - Subjective Subjective: No fevers, not in distress, no headache, apparently no diarrhea this morning. Objective - Vital Signs/Intake and Output Vital Signs (last 24 hours): Temp Pulse Resp BP Pulse Ox 98.4 F 68 18 139/76 98 05/23/18 08:47 05/23/18 08:47 05/23/18 08:47 05/23/18 08:47 05/23/18 08:47 - Medications Medications: Current Medications Acetaminophen (Tylenol 325mg Tab) 650 mg PO Q6 PRN PRN Reason: TEMP>=99.5F Last Admin: 05/22/18 17:14 Dose: 650 mg Acetaminophen (Tylenol 650 Mg Supp) 650 mg RC Q6H PRN PRN Reason: TEMP>=99.5F Aspirin (Ecotrin) 81 mg PO DAILY [facility] Last Admin: 05/22/18 09:20 Dose: 81 mg Ergocalciferol (Drisdol 50,000 Intl Units Cap) 1 cap PO Q7D [facility] Last Admin: 05/16/18 12:40 Dose: 1 cap Famotidine (Pepcid) 20 mg PO 1000,2200 [facility] Stop: 05/25/18 22:01 Last Admin: 05/22/18 21:42 Dose: 20 mg Fluticasone Propionate (Flonase) 1 actuation NS Q12 PRN PRN Reason: Allergy symptoms Heparin Sodium (Porcine) (Heparin) 5,000 units SC Q8 [facility]; Protocol Last Admin: 05/23/18 05:26 Dose: 5,000 units Hydrocortisone (Cortizone 1% Cream) 0 gm TOP Q8 [facility] Last Admin: 05/23/18 05:29 Dose: 1 applic Sodium Chloride (Sodium Chloride 0.9%) 1,000 mls @ 125 mls/hr IV .Q8H [facility] Last Admin: 05/23/18 05:35 Dose: 125 mls/hr Loratadine (Claritin) 10 mg PO DAILY [facility] Last Admin: 05/22/18 09:20 Dose: 10 mg Metoprolol Tartrate (Lopressor) 25 mg PO BID [facility] Last Admin: 05/22/18 17:13 Dose: 25 mg Non-Formulary Medication (Emtricitabine [Emtriva]) 200 mg PO DAILY [facility] Last Admin: 05/22/18 09:22 Dose: Not Given Non-Formulary Medication (Entecavir [Entecavir]) 0.5 mg PO DAILY [facility] Last Admin: 05/22/18 09:23 Dose: Not Given Non-Formulary Medication (Darunavir/Cobicistat [Prezcobix 800 Mg-150 Mg Tablet]) 1 tab PO DAILY [facility] Last Admin: 05/22/18 09:23 Dose: 1 tab Non-Formulary Medication (Emtricitabine/Tenofov Alafenam [Descovy 200-25 Mg Tablet]) 1 tab PO DAILY [facility] Last Admin: 05/22/18 09:22 Dose: 1 tab Ondansetron HCl (Zofran Inj) 4 mg IVP Q4H PRN PRN Reason: Nausea/Vomiting Pantoprazole Sodium (Protonix Ec Tab) 40 mg PO 0600 [facility] Last Admin: 05/23/18 05:27 Dose: 40 mg Tamsulosin HCl (Flomax) 0.4 mg PO DAILY [facility] Last Admin: 05/22/18 09:20 Dose: 0.4 mg Valacyclovir HCl (Valtrex) 500 mg PO HS [facility]; Protocol Last Admin: 05/22/18 21:42 Dose: 500 mg Zolpidem Tartrate (Ambien) 5 mg PO HS PRN; Protocol PRN Reason: Insomnia Last Admin: 05/21/18 21:56 Dose: 5 mg - Labs Labs: 05/21/18 09:00 05/23/18 05:15 PT 12.6 SECONDS (9.4-12.5) H 05/17/18 06:00 INR 1.09 05/17/18 06:00 APTT 29.5 Seconds (25.1-36.5) 05/17/18 06:00 - Constitutional Appears: Non-toxic, Chronically Ill - Head Exam Head Exam: NORMAL INSPECTION - ENT Exam ENT Exam: Mucous Membranes Moist - Neck Exam Neck Exam: absent: Meningismus - Respiratory Exam Respiratory Exam: Decreased Breath Sounds - Cardiovascular Exam Cardiovascular Exam: +S1, +S2 - GI/Abdominal Exam GI & Abdominal Exam: Soft. absent: Tenderness Assessment and Plan - Assessment and Plan (Free Text) Plan: Assessment chronic HIV infection RPR 1:1 titer, unlikely neurosyphilis but awaiting CSF VDRL consider SIRS due to acute gastroenteritis chronic active Hepatitis B dyslipidemia obesity with BMI 34 history of herpes zoster Plan continue cART (Descovy plus Prezcobix) continue Entecavir for Chronic active hepatitis B (which is also covered by Descov[employer]) - patient to follow up with his PMD who treats both his HIV and CAHB reviewed MRI and MRA of brain which are unremarkable patient to follow up with GI as outpatient for the GI symptoms discussed with his PMD Dr. Montes, and patient is to follow up with PMD as outpatient - discussed LP results and that the RPR titer is only 1:1 - october c onsider Doxycycline for 28 days (as recommended by Dr. Gonzalez) if the CSF VDRL is negative - asked patient's current nurse Brandon to ask Dr. Gaines to also follow up CSF VDRL for this patient to see what to do next
[2018-05-23 14:34] LABS: D.FARINAE (D2) IGE 0.12 kU/L (<0.10); OAK (T7) IGE <0.10 kU/L (<0.10)
--- NOTE | 2018-05-23 15:14 | DS ---
HISTORY OF PRESENT ILLNESS: The patient is in room 370, bed 2. Overnight nurse's notes were reviewed. The patient had a very low grade temperature of 99 with some postnasal drip and some questionable sore throat which is much improved. The patient denies any further syncope, denies loss of consciousness, denies nausea, denies vomiting, denies hemoptysis, denies melena and denies falls. PHYSICAL EXAMINATION: VITAL SIGNS: T-max 99 degrees Fahrenheit, down to 97.8; heart rate 82; blood pressure 133/84; respiration 20 and O2 sat 95%. HEENT: Head, normocephalic and atraumatic. HEENT examination shows anicteric sclerae. No oropharyngeal lesion. No neck rigidity. Decreasing facial and nasolabial rash has been noted. Pinkish pale conjunctiva. CHEST: Kyphosis. LUNGS: Shows no audible crackle, rales or wheezing. CARDIOVASCULAR: Shows S1, S2, regular rhythm. Questionable soft systolic murmur left sternal border, right second intercostal space, left second intercostal space. ABDOMEN: Soft. Positive bowel sounds. Protuberant. No palpable hepatosplenomegaly. GENITALIA: Male. RECTAL: Deferred. EXTREMITIES: No pitting edema. No calf tenderness. No Homans' sign. NEUROLOGICAL: The patient is alert, awake, oriented x3. Cranial nerves II-XII intact. Gait examination is independent. Motor strength is 5/5 upper and lower extremity. Cranial nerves II-XII intact and limited. MUSCULOSKELETAL: Shows an elevated body mass index. DIAGNOSTICS: May 23, sodium 140, potassium 4.5, chloride 110, CO2 of 22, BUN 24, creatinine 1.2, glucose 108, calcium 8.6, phosphorus 3.2, magnesium 2.2, AST 70 and ALT 88. CPK 481. HIV 1 and 2 positive and HIV 1 is positive. HIV 1 and 2 fourth generation positive. CSF VDRL results pending. CSF micro bacterial culture negative. FINAL IMPRESSION, PLAN AND DISCHARGE DIAGNOSES: 1. Syncope versus vasovagal syncope, etiology undetermined. 2. Acute rhabdomyolysis with elevated CPK. 3. Acute kidney injury (resolved). 4. Transaminitis. 5. Borderline hypertension. 6. Obesity with elevated body mass index. 7. 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 8. Positive RPR and positive fluorescent treponemal antibody 9. Chronic active hepatitis B with hepatitis B surface antigen positive. 10. Hepatic steatosis and hepatosplenomegaly. 11. Hypovitaminosis D. 12. Rhabdomyolysis. 13. QUESTIONABLE ALLERGIC DERMATITIS (resolving). 14. Low grade fever. 15. Status post leukocytosis and erythrocytosis. 16. Status post granulocytosis. 17. Acute kidney injury (resolved). 1. Syncope, etiology undetermined versus vasovagal syncope, etiology undetermined. 2. Right middle lobe, right lower lobe atelectasis and scarring. 3. Right kidney 3 mm non-obstructing nephrolithiasis. 4. Enteritis with thick-walled fluid-filled duodenum, jejunum, and ileum. 5. Diffuse pancolitis with thick-walled fluid-filled colon with involvement of all segments of the colon. 6. Small hiatal hernia. 7. Hepatic steatosis with fatty liver and hepatomegaly. 8. Splenomegaly. 9. Hypertension. 10. Morbid obesity with elevated body mass index of 33.5. 11. Leukocytosis with granulocytosis. 12. Status post erythrocytosis. 13. Elevated D-dimer. 14. Acute kidney injury (resolved). 15. Rhabdomyolysis with elevated CPK. 16. Hypophosphatemia. 17. Transaminitis. 18. Hypovitaminosis D. 19. History of human immunodeficiency virus, acquired immunodeficiency syndrome. 20. History of chronic active hepatitis B. 21. Elevated C-reactive protein. 22. Hyperuricemia. 23. Prediabetes with hemoglobin A1c of 5.3. 24. Microscopic hematuria. 25. Stool-occult blood positive. 26. Reactive FTA antibody and reactive RPR with a titer of 1:1. 27. Reactive hepatitis B surface antigen, reactive hepatitis B surface antigen neutralization, and reactive hepatitis B core IgM antibody. 28. Status post lumbar puncture and spinal tap. 29. Allergic rash of the nasolabial fold and facial allergic rash, etiology undetermined. Plan at this time, the patient has been ordered serial labs. The patient has been ordered allergy panel. The patient has been ordered IgE. We are awaiting for CSF cultures. Current medication. 30. Insomnia. 31. Contact allergic dermatitis of the face, etiology undetermined. 1. Syncope, etiology undetermined. 2. Episodic auditory hallucination. 3. 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 4. Human immunodeficiency virus and acquired immunodeficiency syndrome. 5. Hepatitis B surface antigen positive and hepatitis B core IgM antibody positive. 6. Chronic active hepatitis B. 7. Leukocytosis. 8. Granulocytosis. 9. Erythrocytosis. 10. Elevated D-dimer. 11. Acute kidney injury (resolved). 12. Hyperuricemia. 13. Hypocalcemia. 14. Hypophosphatemia. 15. Transaminitis. 16. Rhabdomyolysis with elevated CPK. 17. Prediabetes with hemoglobin A1c of 5.3. 18. Hypovitaminosis D. 19. Elevated C-reactive protein of greater than 15. 20. Hypovitaminosis D. 21. Obesity with elevated body mass index of 34. 22. Microscopic hematuria. 23. Stool occult blood positive. 24. Right middle lobe and right lower lobe atelectasis and scarring. 25. Right kidney lower pole 3 mm non-obstructing nephrolithiasis. 26. Possible enteritis with thick-walled fluid-filled duodenum and jejunum and ileum. 27. Diffuse pancolitis with thick-walled fluid-filled all the segments of colon. 28. Small hiatal hernia. 29. Fatty infiltration of the liver and hepatic steatosis. 30. Borderline splenomegaly. 31. Hepatic steatosis. 32. Left ventricular ejection fraction of 56%. 33. Aortic valve thickening, mitral valve thickening with mild mitral regurgitation and mild to trace tricuspid regurgitation. 34. Status post lumbar puncture and spinal tap. 35. Enteritis and colitis. 36. Obesity with elevated body mass index. 37. Episode of auditory hallucination. 38. Rhabdomyolysis. 1. Pancolitis and enteritis involving duodenum, jejunum, and ileum with thick-walled fluid-filled duodenum and jejunum and ileum. 2. Thick-walled fluid-filled colon, involvement of all segment compatible with diffuse pancolitis. 3. Small hiatal hernia. 4. Right middle lobe and right lower lobe atelectasis versus scarring. 5. Right renal 3 mm non-obstructing nephrolithiasis. 6. Questionable transient auditory hallucination (resolved). 7. Leukocytosis with granulocytosis. 8. Erythrocytosis. 9. Elevated D-dimer of 388. 10. Acute kidney injury (resolved). 11. Hyperuricemia. 12. Hypomagnesemia. 13. Rhabdomyolysis with elevated creatine phosphokinase. 14. Elevated C-reactive protein. 15. Questionable prediabetes. 16. Decreased HDL of 26. 17. Hypovitaminosis D. 18. Microscopic hematuria. 19. Fecal occult blood positive, probably secondary to pancolitis. 20. Positive RPR of 1:1 with weakly reactive RPR with reactive FTA antibody. 21. Hepatitis B surface antigen reactive and hepatitis B core IgM antibody reactive. 22. 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 23. History of hepatitis B. 24. Hepatomegaly with hepatic steatosis and fatty infiltration of the liver with increased hepatic echogenicity. 25. Borderline splenomegaly. 26. Bilateral 20% to 39% proximal internal carotid artery stenosis. 27. Left ventricular ejection fraction of 56%. 28. Mildly dilated left atrium. 29. [id number] mitral regurgitation and [id number] tricuspid regurgitation. 30. Systemic inflammatory response syndrome. 31. History of prostatic hypertrophy and nephrolithiasis. 32. Hyperlipidemia. 33. Hypophosphatemia. 1. Recurrent syncope with near-syncope, etiology undetermined. 2. Questionable gastroenteritis with diarrhea. 3. Questionable systemic inflammatory response syndrome. 4. Sinus tachycardia with questionable incomplete right bundle-branch block versus right ventricular conduction delay. 5. Acute kidney injury (resolved). 6. Rhabdomyolysis with elevated CPK. 7. Transaminitis. 8. 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 9. Chronic active hepatitis B. 10. Systemic inflammatory response syndrome. 11. Chronic human immunodeficiency virus infection. 12. Obesity with elevated body mass index. 13. History of nephrolithiasis. 14. Questionable vasovagal syncope. 15. Leukocytosis, erythrocytosis, and granulocytosis. 16. Elevated D-dimer. 17. Status post acute kidney injury. 18. Hyperuricemia. 19. Rhabdomyolysis with elevated CPK. 20. Elevated C-reactive protein. 21. Hypophosphatemia, hypocalcemia. 22. Hypovitaminosis D. 23. Decreased HDL of 26. 24. Microscopic hematuria. 25. Fecal occult blood positive 26. Reactive fluorescent treponemal antibodies and weakly reactive RPR 1:1. 27. Hepatomegaly with hepatic steatosis and mild borderline splenomegaly. 28. 20% to 39% proximal internal carotid artery stenosis. 29. Left ventricular ejection fraction of 56% with mildly dilated left atrium. 30. Mild mitral regurgitation. 31. Mild tricuspid regurgitation. 32. Hypomagnesemia. 33. Sinus tachycardia with questionable incomplete right bundle-branch block versus right ventricular conduction delay. 36. History of herpes zoster. 34. Abdominal distention, etiology undetermined. 35. Persistent refractory diarrhea, etiology undetermined. 1. Syncope with history of recurrent syncope, etiology undetermined, versus questionable vasovagal syncope. 2. Thrombocytosis. 3. Relative thrombocytopenia. 4. Acute kidney injury (resolving). 5. Hypocalcemia. 6. Hypophosphatemia. 7. Rhabdomyolysis. 8. Elevated C-reactive protein. 9. Hyperuricemia. 10. Decreased HDL of 26. 11. Weakly positive RPR of 1:1. 12. Mild granulocytosis. 13. History of human immunodeficiency virus, acquired immune deficiency syndrome. 14. History of chronic active hepatitis B. 15. Questionable dehydration with acute kidney injury (resolving). 1. Syncopal episode x1 to 2 with near-syncope episode this morning. 2. Questionable and possible gastroenteritis with nausea and vomiting. 3. Hypertension. 4. Sinus tachycardia. 5. Questionable systemic inflammatory response syndrome. 6. Leukocytosis with granulocytosis. 7. Erythrocytosis. 8. Acute kidney injury with underlying chronic kidney disease, stage III. 9. Hyperglycemia. 10. Hyperuricemia. 11. Hypomagnesemia. 12. Questionable mild rhabdomyolysis with elevated creatine phosphokinase. 13. Incomplete right bundle-branch block and sinus tachycardia. 14. 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 15. History of herpes zoster. 16. Questionable and possible vasovagal syncope. PLAN: At this time, the patient was seen by Infectious Disease yesterday. The recommendation is that if the patient's CSF VDRL is positive, the patient needs penicillin desensitization and treatment for neurosyphilis. If the CSF VDRL is negative, the patient should be treated for latent syphilis with doxycycline 100 mg p.o. twice a day for 4 weeks at least, BECAUSE THE PATIENT IS PENICILLIN ALLERGIC. The patient at this time will be considered for discharge if cleared by Infectious Disease. The patient discharge followup will be with Dr. Gaines, Dr. Montes in [facility], the patient's Infectious Disease and AIDS doctor. Follow up with Dr. Stewart for of outpatient stress test. Follow up with Dr. Wills for scheduling of outpatient colonoscopy. The patient is to be discharged home after cleared by Infectious Disease with resumption of patient's HIV AIDS medications and hepatitis B medications and in addition, the patient will be discharged on the Edarbi 40 mg daily, doxycycline 100 mg p.o. twice a day for 4 weeks. The patient is advised to follow up in the office within 1 week with for followup of all the results which are still pending. The patient has been extensively and very clearly explained by me and other physicians about need for close followup, need for close Infectious Disease HIV AIDS physician followup and also close followup regarding the treatment of neurosyphilis if CSF VDRL is positive and the patient is also told and explained about need for penicillin desensitization for treatment of neurosyphilis if the patient's CSF VDRL is positive, which he acknowledged and understand. During this hospitalization, the patient was extensively on a daily basis was explained about the details of his medical condition, diagnosis, diagnostic test results, recommendation by all the physician involved in the care of the patient was extensively explained to the patient in layman's language. All questions concerned answered to his satisfaction. Time spent in the entire discharge process 45 minutes. Dictated and electronically signed, not read. Andrés Gaines MD [id number]
[2018-05-23 22:22] LABS: SOURCE CSF
[2018-05-25 00:45] LABS: STOOL SODIUM 101.1 mEq/L
== END 2018-05-23 15:40 | disposition home or self-care (01) | DRG 977 ==
LOC: ED 08:53 → ERH 12:10 → 3RSO 18:11 → OBSVTOIN 05-18 11:04 → 3RSO 05-22 14:10
PROVIDERS: ADMIT Internal Medicine; ATTEND Internal Medicine
PROC: 009U3ZX Drainage of Spinal Canal, Percutaneous Approach, Diagnostic (ICD-10-PCS; principal; 2018-05-20)
DX: K52.9 Noninfective gastroenteritis and colitis, unspecified (principal); B20 Human immunodeficiency virus [HIV] disease; M62.82 Rhabdomyolysis; B18.1 Chronic viral hepatitis B without delta-agent; R65.10 Systemic inflammatory response syndrome (SIRS) of non-infectious origin without acute organ dysfunction; N17.9 Acute kidney failure, unspecified; J98.11 Atelectasis; A53.0 Latent syphilis, unspecified as early or late; N18.3 Chronic kidney disease, stage 3 (moderate); I12.9 Hypertensive chronic kidney disease with stage 1 through stage 4 chronic kidney disease, or unspecified chronic kidney disease; E66.01 Morbid (severe) obesity due to excess calories; E83.51 Hypocalcemia; R79.82 Elevated C-reactive protein (CRP); E86.0 Dehydration; E83.42 Hypomagnesemia; L23.9 Allergic contact dermatitis, unspecified cause; E55.9 Vitamin D deficiency, unspecified; K44.9 Diaphragmatic hernia without obstruction or gangrene; R73.03 Prediabetes; I08.1 Rheumatic disorders of both mitral and tricuspid valves; G47.00 Insomnia, unspecified; N40.0 Benign prostatic hyperplasia without lower urinary tract symptoms; E83.39 Other disorders of phosphorus metabolism; I45.10 Unspecified right bundle-branch block; Z68.34 Body mass index [BMI] 34.0-34.9, adult; Z88.0 Allergy status to penicillin

== ENCOUNTER 2018-07-06 07:52 | Day surgery (SDC) | payer MEDICARE, BC ==
[2018-07-06] MEDS ORDERED: Propofol 10 mg/ml Inj (20 ML) ONE ×3 (09:43→10:40)
[2018-07-06] MEDS ORDERED: Sodium Chloride 0.9% 1,000 ML IV SCH (10:30)
[2018-07-06 10:54] VITALS: O2SAT 95
[2018-07-06 11:18] VITALS: BP 135/80; PULSE 84; RESP 16; TEMP 98.1
== END 2018-07-06 12:00 | disposition home or self-care (01) ==
LOC: ENDO 07:52
PROVIDERS: ATTEND Specialist
DX: Z12.11 Encounter for screening for malignant neoplasm of colon (principal); D12.4 Benign neoplasm of descending colon; D12.3 Benign neoplasm of transverse colon; K64.8 Other hemorrhoids; Z21 Asymptomatic human immunodeficiency virus [HIV] infection status; I10 Essential (primary) hypertension
CPT/HCPCS: 45385; 88305; J2704; J7030; J7040

== ENCOUNTER 2018-07-25 12:27 | Emergency (ER) | payer MEDICARE, BC ==
[2018-07-25 12:28] VITALS: BMI 33.4
[2018-07-25 12:59] VITALS: BP 169/90; PULSE 84; RESP 18; TEMP 98.9
[2018-07-25] MEDS ORDERED: Sodium Chloride 0.9% 1,000 ML IV STA ×2 (13:35→14:38)
[2018-07-25 14:25] LABS: BASO # 0.04 K/mm3 (0.0-2.0); BASO % 0.5 % (0.0-3.0); EOS # 0.3 (0.0-0.7); EOS % 3.4 % (1.5-5.0); HEMOGLOBIN 17.8 g/dL (14.0-18.0); LYMPH % 22.8 % (22.0-35.0); MEAN CELL VOLUME 102.9 fl (80.0-105.0); MEAN CORPUSCULAR HEMOGLOBIN 36.6 pg (25.0-35.0); MEAN CORPUSCULAR HGB CONC 35.5 g/dl (31.0-37.0); MEAN PLATELET VOLUME 10.1 fl (7.0-11.0); MONO # 0.9 (0.1-0.6); MONO % 10.4 % (1.0-6.0); RBC 4.87 10^6/uL (3.5-6.1); RED CELL DISTRIBUTION WIDTH 13.2 % (11.5-14.5); WHITE BLOOD COUNT 8.7 10^3/uL (4.5-11.0)
[2018-07-25 14:36] LABS: ALB/GLOB RATIO 1.2 (1.1-1.8); ALBUMIN 4.4 g/dL (3.0-4.8); ALT/SGPT 66 U/L (7-56); AMYLASE 58 U/L (35-125); AST/SGOT 62 U/L (17-59); BLOOD UREA NITROGEN 21 mg/dL (7-21); CALCIUM 9.4 mg/dL (8.4-10.5); GFR NON-AFRICAN AMERICAN 50; LIPASE 37 U/L (23-300)
[2018-07-25 14:40] LABS: INR 1.1; PARTIAL THROMBOPLASTIN TIME 40.9 Seconds (26.9-38.3); PROTHROMBIN TIME 12.2 SECONDS (9.4-12.5)
[2018-07-25 14:47] LABS: TROPONIN I < 0.01 ng/mL
[2018-07-25 15:28] LABS: URINE BILIRUBIN NEGATIVE (NEGATIVE); URINE BLOOD NEGATIVE (NEGATIVE); URINE GLUCOSE (UA) NEGATIVE (NEGATIVE); URINE LEUKOCYTE ESTERASE NEGATIVE Leu/uL (NEGATIVE); URINE PROTEIN TRACE mg/dL (<30 mg/dL); URINE UROBILINOGEN 0.2 E.U./dL (<1 E.U./dL)
[2018-07-25 15:29] LABS: URINE APPEARANCE CLEAR (CLEAR); URINE COLOR YELLOW (YELLOW)
--- NOTE | 2018-07-25 15:35 | RAD ---
Date of service: 07/25/2018 HISTORY: Cough COMPARISON: Comparison chest 05/16/2018. TECHNIQUE: Chest PA and lateral FINDINGS: LUNGS: Increased and coarsened the interstitial markings with few scattered peribronchial cuffing changes. Findings could represent sequela of reactive/inflammatory airway disease or viral illness. Suspect minor bibasilar atelectasis. PLEURA: No significant pleural effusion identified. No pneumothorax apparent. CARDIOVASCULAR: Minimal aortic atherosclerotic calcification present. Normal cardiac size. No pulmonary vascular congestion. OSSEOUS STRUCTURES: No significant abnormalities. VISUALIZED UPPER ABDOMEN: Normal. OTHER FINDINGS: None. IMPRESSION: Increased and coarsened the interstitial markings with few scattered peribronchial cuffing changes. Findings could represent sequela of reactive/inflammatory airway disease or viral illness. Suspect minor bibasilar atelectasis.
--- NOTE | 2018-07-25 15:40 | CT ---
Date of service: 07/25/2018 PROCEDURE: CT HEAD WITHOUT CONTRAST. HISTORY: headache COMPARISON: Unenhanced head CT 05/15/2018. TECHNIQUE: Axial computed tomography images were obtained through the head/brain without intravenous contrast. Multiplanar reformatted data sets also provided. Radiation dose: Total exam DLP = 964.1 mGy-cm. This CT exam was performed using one or more of the following dose reduction techniques: Automated exposure control, adjustment of the mA and/or kV according to patient size, and/or use of iterative reconstruction technique. FINDINGS: HEMORRHAGE: No intracranial hemorrhage. BRAIN: The rollins-white matter differentiation is well preserved. There is no mass effect or definitive edema pattern appreciated including the cortex. There is proportional expansion of the ventriculosulcal and cisternal spaces however in a pattern most compatible with diffuse cerebral atrophy. No suspicious extra-axial fluid collection is identified in the midline brain anatomy appears grossly nonfocal as imaged. VENTRICLES: Unremarkable. No hydrocephalus. CALVARIUM: Unremarkable. PARANASAL SINUSES: Unremarkable as visualized. No significant inflammatory changes. MASTOID AIR CELLS: Unremarkable as visualized. No inflammatory changes. OTHER FINDINGS: None. IMPRESSION: Reiterated mild diffuse cerebral atrophy. No acute intracranial findings identified as discussed above. No signal interval change greater prior head CT without contrast 05/16/2018.
--- NOTE | 2018-07-25 15:49 | CT ---
Date of service: 07/25/2018 PROCEDURE: CT Abdomen and Pelvis with contrast HISTORY: right flank/abdominal pain COMPARISON: Noncontrast abdomen and pelvis CT 05/18/2018. TECHNIQUE: Following the intravenous administration of iodinated contrast material, a CT examination of the abdomen and pelvis was performed from the domes of the diaphragms to the symphysis pubis with reformatted datasets provided in axial, sagittal and coronal planes. Oral contrast was not administered as per referring physician request. Contrast dose: Omnipaque 350, 150 cc Radiation dose: Total exam DLP = 1006.26 mGy-cm. This CT exam was performed using one or more of the following dose reduction techniques: Automated exposure control, adjustment of the mA and/or kV according to patient size, and/or use of iterative reconstruction technique. FINDINGS: LOWER THORAX: Small hiatal hernia redemonstrated. No pleural or pericardial effusion identified. Diminished dependent atelectasis identified bilaterally. Mild cardiomegaly stable. LIVER: Diminished attenuation is appreciated throughout the liver without intrahepatic biliary dilatation or mass evident. GALLBLADDER AND BILE DUCTS: Gallbladder is distended without radiodense cholelithiasis appreciated. No mural thickening or pericholecystic fluid collection evident. PANCREAS: Unremarkable. No gross lesion or ductal dilatation. SPLEEN: Unremarkable. ADRENALS: Unremarkable. No mass. KIDNEYS AND URETERS: No obstructive uropathy appreciate bilaterally or definitive solid parenchymal mass either. Punctate intrarenal calculus remains at the lower pole right kidney. VASCULATURE: Nonaneurysmal abdominal aortic calcific atherosclerotic changes are identified. BOWEL: Evaluation of the gastrointestinal tract is limited due to the lack of oral contrast administration. There is a nonobstructive bowel gas pattern appreciated throughout the abdomen and pelvis. No definite pericolic or perienteric reactive changes. Evaluation of the distal large-bowel and rectal berman is limited due to collapse. APPENDIX: Normal appendix. PERITONEUM: Unremarkable. No free fluid. No free air. LYMPH NODES: No significant lymphadenopathy appreciated in the abdomen or pelvis including retroperitoneum. BLADDER: Unremarkable. REPRODUCTIVE: Mild prostate gland enlargement noted once again. BONES: No acute fracture. OTHER FINDINGS: None. IMPRESSION: 1. A punctate intrarenal calculus is identified at the lower pole right kidney without obstructive uropathy evident. Left kidney is unremarkable. 2. No bowel obstruction, mesenteric edema, ascites or free intra peritoneal gas collection identified. Evaluation of the distal large bowel berman including the rectum is limited due to collapse. No perienteric or pericolic reactive changes appreciated to define specific colitis or enteritis grossly. 3. Hepatic steatosis identified. Nonspecific gallbladder distention without cholelithiasis, mural thickening or pericholecystic fluid collection related. 4. Mild prostate gland enlargement reiterated. 5. Small hiatal hernia.
--- NOTE | 2018-07-25 16:35 | CARD ---
APPROVED REPORT Date of service: 07/25/2018 EKG Measurement Heart [id number] MD [id number] <Conclusion> Normal sinus rhythm Normal ECG
--- NOTE | 2018-07-25 16:45 | ED PDOC ---
Arrival/HPI - General Chief Complaint: Dizziness/Lightheaded Time Seen by Provider: 07/25/18 13:03 - History of Present Illness Narrative History of Present Illness (Text): 73 y/o male with PMH of HIV and HTN presents to ED c/o cough and congestion x 5 days with associated right flank pain that began today. Describes pain as dull and achey, worse with coughing. Associated lightheadedness when standing and changing positions, with near-syncopal episode today while bending over to tie his shoes and coughing. Denies LOC. Tolerating PO and having BM per baseline. No sick contacts or recent travel. Denies fevers, chills, nausea, vomiting, diarrhea, back pain, neck pain, weakness, paresthesias, numbness, vision changes, urinary symptoms, chest pain, palpitations, SOB, or any other associated symptoms. Past Medical History - Provider Review Nursing Documentation Reviewed: Yes - Infectious Disease Hx of Infectious Diseases: None - Cardiac Hx Pacemaker: No - Pulmonary Hx Respiratory Disorders: Yes Hx Respiratory Tract Infection: Yes (JUN 2017) Other/Comment: Pt has history of HIV - Neurological Hx Neurological Disorder: No - HEENT Hx HEENT Disorder: Yes (SEASONAL ALLERGIES) Other/Comment: SHINGLES EYE - Renal Hx Renal Disorder: No Hx Kidney Stones: Yes - Endocrine/Metabolic Hx Endocrine Disorders: No - Hematological/Oncological Hx Blood Transfusions: No Hx Blood Transfusion Reaction: No - Integumentary Hx Dermatological Disorder: Yes Other/Comment: RED DARKENED AREAS ARMS LEGS FACE HEAD - Musculoskeletal/Rheumatological Hx Musculoskeletal Disorders: Yes - Gastrointestinal Hx Gastrointestinal Disorders: Yes (BOUTS OF DIARRHEA) - Genitourinary/Gynecological Hx Genitourinary Disorders: Yes Other/Comment: removal ureteral stent - Psychiatric Hx Emotional Abuse: No Hx Physical Abuse: No Hx Substance Use: No - Surgical History Hx Cardiac Catheterization: Yes () Hx Orthopedic Surgery: No Other/Comment: CYSTOSCOPY STENT INSERTION - Anesthesia Hx Anesthesia: Yes Hx Anesthesia Reactions: No Hx Malignant Hyperthermia: No - Suicidal Assessment Feels Threatened In Home Enviroment: No Family/Social History - Physician Review Nursing Documentation Reviewed: Yes Family/Social History: No Known Family HX Smoking Status: Never Smoked Hx Alcohol Use: No Hx Substance Use: No Allergies/Home Meds Allergies/Adverse Reactions: Allergies Penicillins Allergy (Severe, Verified 06/29/18 11:46) ANGIOEDEMA Home Medications: Home Meds Medication Instructions Recorded Confirmed Darunavir/Cobicistat [Prezcobix 1 tab PO DAILY 08/05/16 07/06/18 800 mg-150 mg Tablet] Valacyclovir HCl [Valacyclovir] 500 mg PO HS 08/14/17 07/06/18 Emtricitabine [Emtriva] 200 mg PO DAILY 08/15/17 07/06/18 Emtricitabine/Tenofov Alafenam 1 tab PO DAILY 10/08/17 07/06/18 [Descovy 200-25 mg Tablet] Tamsulosin [Flomax] 0.4 mg PO DAILY PRN 06/29/18 06/29/18 Atropine/Diphenoxylate [Lomotil 1 tab PO PRN PRN 07/06/18 07/06/18 0.025-2.5 mg tablet] Review of Systems - Physician Review All systems were reviewed & negative as marked: Yes - Review of Systems Constitutional: Normal. absent: Fatigue, Fevers Eyes: Normal. absent: Vision Changes ENT: Sore Throat, Rhinorrhea, Sinus Congestion Respiratory: Cough. absent: SOB, Sputum Cardiovascular: Normal. absent: Chest Pain, Palpitations, Syncope Gastrointestinal: Normal. absent: Abdominal Pain, Stool Changes, Nausea, Vomiting, Appetite Changes Genitourinary Male: Normal. absent: Dysuria, Frequency Musculoskeletal: Normal. absent: Arthralgias, Back Pain, Neck Pain Skin: Normal. absent: Rash Neurological: Dizziness. absent: Headache, Focal Weakness, Gait Changes, Speech Changes, Disequilibrium, Seizure Endocrine: Normal Hemo/Lymphatic: Normal Psychiatric: Normal Physical Exam Vital Signs Reviewed: Yes Vital Signs Temp Pulse Resp BP Pulse Ox 07/25/18 13:20 98.9 F 84 18 169/90 H 98 07/25/18 12:29 98.9 F 84 18 169/90 H 97 Temperature: Afebrile Blood Pressure: Hypertensive Pulse: Regular Respiratory Rate: Normal Appearance: Positive for: Well-Appearing, Non-Toxic, Comfortable Pain Distress: None Mental Status: Positive for: Alert and Oriented X 3 - Systems Exam Head: Present: Atraumatic, Normocephalic Pupils: Present: PERRL Extroacular Muscles: Present: EOMI Conjunctiva: Present: Normal Ears: Present: Normal, NORMAL TM, Normal Canal Mouth: Present: Moist Mucous Membranes Pharnyx: Present: Normal. No: ERYTHEMA, EXUDATE, TONSILS ENLARGED Nose (External): Present: Atraumatic Nose (Internal): Present: Normal Inspection Neck: Present: Normal Range of Motion. No: Meningeal Signs, MIDLINE TENDERNESS, Lymphadenopathy Respiratory/Chest: Present: Clear to Auscultation, Good Air Exchange, Tender to Palpation (right anterior inferior ribs). No: Respiratory Distress, Accessory Muscle Use Cardiovascular: Present: Regular Rate and Rhythm, Normal S1, S2, Peripheal Pulses Present. No: Murmurs Abdomen: Present: Tenderness (right flank), Normal Bowel Sounds. No: Distention, Peritoneal Signs, Rebound, Guarding Back: Present: Normal Inspection. No: CVA Tenderness Upper Extremity: Present: Normal Inspection, Normal ROM, NORMAL PULSES, Neurovascularly Intact, Capillary Refill < 2s. No: Cyanosis, Edema, Temperature Abnormalties Lower Extremity: Present: Normal Inspection, NORMAL PULSES, Normal ROM, Neurovascularly Intact, Capillary Refill < 2 s. No: Edema, Temperature Abnormalties Neurological: Present: GCS=15, CN II-XII Intact, Speech Normal, Motor Func Grossly Intact, Normal Sensory Function, Gait Normal Skin: Present: Warm, Dry, Normal Color. No: Rashes Lymphatic: No: Cervical Adenopathy Psychiatric: Present: Alert, Oriented x 3, Normal Insight, Normal Concentration, Normal Affect, Normal Mood Medical Decision Making ED Course and Treatment: Initial Plan: * Bloodwork * UA * EKG * CXR * CT Abd/Pelvis * IVF * Tylenol Mild hyperkalemia at 5.1, no EKG changes. Labs suggestive of dehydration: elevated CPK, BUN, Creat, SG in UA. Advises increasing fluids. CXR shows no active disease CT head negative CT Abd/Pelvis shows right renal stone, otherwise nonspecific, no acute disease Diagnostic testing results reviewed with Dr. Cisse who recommends discharge home with outpatient followup. Right chest pain reproducible, most likely MSK. Pt states he has had near syncopal episodes before when he has been dehydrated, admitted in April with negative comprehensive workup including imaging, labwork, and LP. Patient well appearing and denies physical complaints prior to discharge. States he will followup as instructed. Diagnostic testing results and plan of care discussed with patient. Strict instructions given regarding prescription use, importance of followup, and sig ns/symptoms to return to ER including fevers, chills, worsening pain, or any other new/worsening symptoms. Pt verbalized understanding of discussion. Patient is A&Ox3, ambulating with steady gait, with vital signs stable for discharge. - Lab Interpretations Lab Results: PT 12.2 SECONDS (9.4-12.5) 07/25/18 14:11 INR 1.10 07/25/18 14:11 APTT 40.9 Seconds (26.9-38.3) H 07/25/18 14:11 Troponin I < 0.01 ng/mL 07/25/18 14:11 Total Bilirubin 1.7 mg/dL (0.2-1.3) H 07/25/18 14:11 AST 62 U/L (17-59) H 07/25/18 14:11 ALT 66 U/L (7-56) H 07/25/18 14:11 Alkaline Phosphatase 72 U/L (38-126) 07/25/18 14:11 Total Protein 8.1 g/dL (5.8-8.3) 07/25/18 14:11 Albumin 4.4 g/dL (3.0-4.8) 07/25/18 14:11 Globulin 3.7 gm/dL 07/25/18 14:11 Albumin/Globulin Ratio 1.2 (1.1-1.8) 07/25/18 14:11 Amylase 58 U/L (35-125) 07/25/18 14:11 Lipase 37 U/L (23-300) 07/25/18 14:11 Urine Color Yellow (YELLOW) 07/25/18 14:40 Urine Appearance Clear (CLEAR) 07/25/18 14:40 Urine pH 6.0 (4.7-8.0) 07/25/18 14:40 Ur Specific [place] >= 1.030 (1.005-1.035) 07/25/18 14:40 Urine Protein Trace mg/dL (<30 mg/dL) H 07/25/18 14:40 Urine Glucose (UA) Negative mg/dL (NEGATIVE) 07/25/18 14:40 Urine Ketones Negative mg/dL (NEGATIVE) 07/25/18 14:40 Urine Blood Negative (NEGATIVE) 07/25/18 14:40 Urine Nitrate Negative (NEGATIVE) 07/25/18 14:40 Urine Bilirubin Negative (NEGATIVE) 07/25/18 14:40 Urine Urobilinogen 0.2 E.U./dL (<1 E.U./dL) 07/25/18 14:40 Ur Leukocyte Esterase Negative [place]/uL (NEGATIVE) 07/25/18 14:40 Urine RBC TEST NOT PERFORMED 07/25/18 14:40 Urine WBC 2 - 5 /hpf (0-6) 07/25/18 14:40 Ur Epithelial Cells 6 - 8 /hpf (0-5) H 07/25/18 14:40 07/25/18 14:11 07/25/18 14:11 Lab Results 07/25/18 19:41: Influenza Typ A,B (EIA) Negative for flu a/b 07/25/18 14:40: Urine Color Yellow, Urine Appearance Clear, Urine pH 6.0, Ur Specific [place] >= 1.030, Urine Protein Trace H, Urine Glucose (UA) Negative, Urine Ketones Negative, Urine Blood Negative, Urine Nitrate Negative, Urine Bilirubin Negative, Urine Urobilinogen 0.2, Ur Leukocyte Esterase Negative, Urine RBC TEST NOT PERFORMED, Urine WBC 2 - 5, Ur Epithelial Cells 6 - 8 H 07/25/18 14:11: Sodium 139, Potassium 5.1 H, Chloride 102, Carbon Dioxide 28, Anion Gap 14, BUN 21, Creatinine 1.4, Est GFR ( Amer) > 60, Est GFR (Non- Af Amer) 50, Random Glucose 94, Calcium 9.4, Total Bilirubin 1.7 H, AST 62 H, ALT 66 H, Alkaline Phosphatase 72, Lactate Dehydrogenase 550, Total Creatine Kinase 250 H, CK-MB (CK-2) 5.0 H, CK-MB (CK-2) % 2.0 L, Troponin I < 0.01, Total Protein 8.1, Albumin 4.4, Globulin 3.7, Albumin/Globulin Ratio 1.2, Amylase 58, Lipase 37 07/25/18 14:11: PT 12.2, INR 1.10, APTT 40.9 H 07/25/18 14:11: WBC 8.7 D, RBC 4.87, Hgb 17.8 D, Hct 50.1, MCV 102.9, MCH 36.6 H, MCHC 35.5, RDW 13.2, Plt Count 152, MPV 10.1, Neut % (Auto) 62.9, Lymph % (Au to) 22.8, [place] % (Auto) 10.4 H, Eos % (Auto) 3.4, Baso % (Auto) 0.5, Lymph # (Auto) 2.0, [place] # (Auto) 0.9 H, Eos # (Auto) 0.3, Baso # (Auto) 0.04, Absolute Neuts (auto) 5.50 I have reviewed the lab results: Yes - RAD Interpretation Narrative RAD Interpretations (Text): 07/26/18 01:15 Abd/Pelvis CT: * Intrarenal calculus, right without obstruction * Distended gallbladder without cholelithiasis, thickening, or fluid collection * Hepatic Steatosis * Enlarged prostate * Hiatal hernia Head CT: Reiterated mild diffuse cerebral atrophy. No acute intracranial findings. No interval change from 05/16/18 CXR: Findings suggestive of reactive airway disease or viral illness. Suspected bibasilar atelectasis. Radiology Orders: 07/25/18 13:34 CXR (PA/LAT) [CHEST TWO VIEWS (PA/LAT)] [RAD] Stat 07/25/18 13:35 ABD & PELVIS IV CONTRAST ONLY [CT] Stat 07/25/18 13:36 HEAD W/O CONTRAST [CT] Stat Social Sciences Chair: Radiologist - EKG Interpretation EKG Interpretation (Text): Rate 76; NSR; Normal Intervals; No STEMI or other signs of acute ischemia Interpreted by ED Physician: Yes Type: 12 lead EKG - Medication Orders Current Medication Orders: Sodium Chloride (Sodium Chloride 0.9%) 1,000 mls @ 100 mls/hr IV .Q10H STA Stop: 07/25/18 23:34 Last Admin: 07/25/18 14:36 Dose: 100 mls/hr eMAR Start Stop Document 07/25/18 14:36 GMD (Rec: 07/25/18 14:36 GMD [id number]) Intravenous Solution Start Date 07/25/18 Start Time 14:36 Discontinued Medications Acetaminophen (Tylenol 325mg Tab) 650 mg PO STAT STA Stop: 07/25/18 16:26 Sodium Chloride (Sodium Chloride 0.9%) 1,000 mls @ 999 mls/hr IV .Q1H1M STA Stop: 07/25/18 15:38 Last Admin: 07/25/18 14:44 Dose: 999 mls/hr eMAR Start Stop Document 07/25/18 14:44 GMD (Rec: 07/25/18 14:44 [place] [facility] [email or web address] Intravenous Solution Start Date 07/25/18 Start Time 14:44 End Date 07/25/18 End time 15:44 Total Infusion Time 60 Ketorolac Tromethamine (Toradol) 15 mg IVP STAT STA Stop: 07/25/18 13:36 Last Admin: 07/25/18 14:36 Dose: 15 mg MAR Pain Assessment Document 07/25/18 14:36 GMD (Rec: 07/25/18 14:36 [place] [facility] [email or web address] Pain Reassessment Is this a pain reassessment? No IVP Administration Document 07/25/18 14:36 GMD (Rec: 07/25/18 14:36 GMD [facility]) Charges for Administration # of IVP Administrations 1 Disposition/Present on Arrival - Present on Arrival Any Indicators Present on Arrival: No History of DVT/PE: No History of Uncontrolled Diabetes: No Urinary Catheter: No History of Decub. Ulcer: No History Surgical Site Infection Following: None - Disposition Have Diagnosis and Disposition been Completed?: Yes Diagnosis: Dehydration, Vasovagal episode, Acute bronchitis Disposition: HOME/ ROUTINE Disposition Time: 17:00 Patient Plan: Discharge Condition: IMPROVED Discharge Instructions (ExitCare): Dehydration, Adult (DC), Acute Bronchitis, Adult (DC), Near Fainting (DC) Additional Instructions: Tylenol/Ibuprofen for pain Increase fluids! Followup with primary tomorrow Return to ER with any new/worsening symptoms Referrals: [facility] at [facility] [place] [Outside] - Follow up with primary Rina Mc MD [Medical Doctor] - Follow up with primary Forms: [employer] ([place]), WORK NOTE
[2018-07-25 19:09] VITALS: O2SAT 99
== END 2018-07-25 19:08 | disposition home or self-care (01) ==
LOC: ED 12:27
DX: E86.0 Dehydration (principal); J20.9 Acute bronchitis, unspecified; R55 Syncope and collapse; I10 Essential (primary) hypertension; Z21 Asymptomatic human immunodeficiency virus [HIV] infection status
CPT/HCPCS: 70450; 71046; 74177; 80053; 81001; 82150; 82550; 82553; 83615; 83690; 84484; 85025; 85610; 85730; 87804; 93005; 96361; 96374; 99285; J1885; J7030; Q9967